=== PATIENT | male | born 1975 | race Caucasian/White ===

== ENCOUNTER 2023-02-06 10:34 | Emergency (ER) | payer MEDICAID, SELFPAY ==
[2023-02-06 10:39] VITALS: BP 148/92; PULSE 87; RESP 18; TEMP 36.8; O2SAT 98; BMI 23.7
[2023-02-06 10:40] VITALS: PULSE 75; RESP 12; O2SAT 99
[2023-02-06 10:45] VITALS: BP 148/92; PULSE 86; PULSE 93; RESP 15; RESP 16; O2SAT 98
[2023-02-06 10:50] VITALS: BP 138/85; PULSE 78; RESP 12; O2SAT 99
--- NOTE | 2023-02-06 10:55 | ED_ITS ---
HPI - Chest Pain General Chief Complaint: Chest Pain Stated Complaint: CHEST PAIN Time Seen by Provider: 02/06/23 10:37 Source: patient Mode of arrival: walk-in Limitations: no limitations History of Present Illness HPI narrative: 47-year-old male presents to the emergency department for chest pain. It started about 9:00 this morning. No injury. He points to the area just medial to the left axilla. It doesn't seem to radiate and it's been continuous. He states he's been under a lot stress recently. His fianc? broke up with him two days ago and he was going to go visit his son's grave today. No trauma or cough or back pain. he stopped taking his anxiety medication. Related Data Allergies Allergy/AdvReac Type Severity Reaction Status Date / Time No Known Drug Allergies Allergy Verified 02/06/23 10:39 Review of Systems ROS Narrative A ten point review of systems is negative except as noted above. Psychiatric Reports: anxiety PFSH PFSH Social History Smoking status: Heavy tobacco smoker Exam Narrative Exam Narrative: Nurses note and vital signs reviewed and patient is not hypoxic. General: The patient appears well and in no apparent distress. Patient is resting comfortably on cart. Skin: Warm, dry, no pallor noted. There is no rash noted. Head: Normocephalic, atraumatic Eye: Normal conjunctiva, no drainage Ears, Nose, Mouth, and Throat: oral mucosa is moist. Nares patent. Cardiovascular: Regular Rate and Rhythm Respiratory: Patient is in no distress, no accessory muscle use, lungs are clear to auscultation, no wheezing, rales or rhonchi Back: non-tender GI: soft and nontender Musculoskeletal: The patient has no evidence of calf tenderness, no pitting edema, symmetrical pulses noted bilaterally Neurological: A&O x4, normal speech Psychiatric: Cooperativeon the anxious Constitutional Vital Signs, click to edit/add: Last Vital Signs Temp 98.3 F 02/06/23 10:39 Pulse 74 02/06/23 11:00 Resp 16 02/06/23 11:00 BP 135/93 H 02/06/23 11:00 Pulse Ox 97 02/06/23 11:00 O2 Del Method Room Air 02/06/23 10:39 Course Vital Signs Vital signs: Vital Signs Temperature 98.3 F 02/06/23 10:39 Pulse Rate 87 02/06/23 10:39 Respiratory Rate 18 02/06/23 10:39 Blood Pressure 148/92 H 02/06/23 10:39 Pulse Oximetry 98 02/06/23 10:39 Oxygen Delivery Method Room Air 02/06/23 10:39 Temperature 98.3 F 02/06/23 10:39 Pulse Rate 74 02/06/23 11:00 Respiratory Rate 16 02/06/23 11:00 Blood Pressure 135/93 H 02/06/23 11:00 Pulse Oximetry 97 02/06/23 11:00 Oxygen Delivery Method Room Air 02/06/23 10:39 MDM - Chest Pain MDM Narrative Medical decision making narrative: during the course of his workup he decided he didn't want to stay any longer. She is able to make medical decisions for himself and is allowed to sign out against medical advice. His workup was incomplete. He is being referred to PCP. Differential Diagnosis Differential diagnosis: Likely pneumothorax, unstable angina pectoris, atypical chest pain, st elevation myocardial infarction, costochondritis and chest pain Lab Data Attestation: I reviewed the patient's lab results. (labs reviewed to the point where he left against medical advice. not all labs were resulted.) Labs: Lab Results 02/06/23 Range/Units 10:50 WBC 6.0 (4.0-11.0) 10^3/uL RBC 5.17 (4.70-6.10) 10^6/uL Hgb 15.6 (14.0-18.0) g/dL Hct 45.4 (42.0-54.0) % MCV 87.8 (80.0-94.0) fL MCH 30.2 (25.9-34.0) pg MCHC 34.4 (29.9-35.2) g/dL RDW 13.4 (11.0-15.0) % Plt Count 363 (150-450) 10^3/uL MPV 9.9 (9.5-13.5) fL Neut % (Auto) 52.1 (43.0-75.0) % Lymph % (Auto) 33.2 (20.5-60.0) % [place] % (Auto) 9.6 (1.7-12.0) % Eos % (Auto) 2.9 (0.9-7.0) % Baso % (Auto) 2.0 (0.2-2.0) % Neut # (Auto) 3.1 (1.4-6.5) 10^3/uL Lymph # (Auto) 2.0 (1.2-3.8) 10^3/uL [place] # (Auto) 0.6 (0.3-0.8) 10^3/uL Eos # (Auto) 0.2 (0.0-0.7) 10^3/uL Baso # (Auto) 0.1 (0.0-0.1) 10^3/uL Abs Immat Gran (auto) 0.01 (0.00-0.03) 10^3/uL Imm/Tot Granulo (auto) 0.2 (0.0-0.5) % Sodium 142 (136-145) mmol/L Potassium 3.7 (3.5-5.1) mmol/L Chloride 105 (98-107) mmol/L Carbon Dioxide 25.9 (21.0-32.0) mmol/L Anion Gap 14.8 BUN 25.0 H (7.0-18.0) mg/dL Creatinine 1.01 (0.70-1.30) mg/dL Est GFR ( Amer) >60 (>=60) Est GFR (Non-Af Amer) >60 (>=60) BUN/Creatinine Ratio 24.8 Glucose 105 (74-106) mg/dL Calcium 9.1 (8.5-10.1) mg/dL ECG Data Attestation: I personally reviewed and interpreted this ECG as follows: (EKG on my interpretation shows sinus rhythm with rate of seventy-seven) Heart Score History: Slightly/Non-Suspicious ECG: Normal Age: <45 years Risk Factors: No Risk Factors Troponin: <Normal Limit (not resulted) Total Heart Score Recommendations & Risks:: 0 Discharge Plan Discharge Chief Complaint: Chest Pain Clinical Impression: Chest pain Patient Disposition: Left Against Medical Advice Time of Disposition Decision: 11:38 Condition: Good Mode of Transportation: Private Vehicle Instructions: Chest Pain (ED) Stand Alone Forms: Portal Instructions Referrals: Physician,Non-Staff, MD [Primary Care Provider] - 1 week
--- NOTE | 2023-02-06 10:55 | ECG_ITS ---
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
--- NOTE | 2023-02-06 10:55 | XR_ITS ---
The [address] [address] Patient Name: SYLVIA OBANDO MRN: [id number] date: 1975 Sex: M Assigned Patient Location: ER Current Patient Location: ED.MAIN Accession/Order Number: [id number] Exam Date: 02/06/2023 10:55 Report Date: 02/06/2023 11:24 At the request of: NIKIA CAMPOS Procedure: XR chest 1V EXAMINATION: XR chest 1V HISTORY: SOB , chest pain, tightness COMPARISON: No relevant comparison available. FINDINGS: LUNGS: No significant pulmonary parenchymal abnormalities. VASCULATURE: No increased pulmonary vasculature. PLEURA: No pneumothorax, effusion, or pleural thickening. CARDIAC: No cardiomegaly or cardiac silhouette abnormality. MEDIASTINUM: No visible mass or adenopathy. BONES: No fracture or visible bone lesion. OTHER: Negative. XR/XR chest 1V IMPRESSION: 1. No acute cardiopulmonary process. Electronically authenticated by: LOLITA CHRISTENSEN Date: 02/06/2023 11:24
[2023-02-06 11:00] VITALS: BP 135/93; PULSE 74; RESP 16; O2SAT 97
[2023-02-06 11:20] LABS: Basophils Absolute Auto 0.1 10^3/uL (0.0-0.1); Eosinophils Absolute Auto 0.2 10^3/uL (0.0-0.7); Eosinophils Percent Auto 2.9 % (0.9-7.0); Hematocrit 45.4 % (42.0-54.0); Hemoglobin 15.6 g/dL (14.0-18.0); Immature Granulocytes Abs Auto 0.01 10^3/uL (0.00-0.03); Immature Granulocytes Pct Auto 0.2 % (0.0-0.5); Lymphocytes Percent Auto 33.2 % (20.5-60.0); Mean Corpuscular HGB Conc 34.4 g/dL (29.9-35.2); Mean Corpuscular Hemoglobin 30.2 pg (25.9-34.0); Mean Corpuscular Volume 87.8 fL (80.0-94.0); Mean Platelet Volume 9.9 fL (9.5-13.5); Monocytes Absolute Auto 0.6 10^3/uL (0.3-0.8); Monocytes Percent Auto 9.6 % (1.7-12.0); Neutrophils Absolute Auto 3.1 10^3/uL (1.4-6.5); Neutrophils Percent Auto 52.1 % (43.0-75.0); Platelet Count 363 10^3/uL (150-450); Red Blood Count 5.17 10^6/uL (4.70-6.10); Red Cell Distribution Width 13.4 % (11.0-15.0)
[2023-02-06 11:34] LABS: Anion Gap 14.8; BUN Creatinine Ratio 24.8; Calcium 9.1 mg/dL (8.5-10.1); Carbon Dioxide 25.9 mmol/L (21.0-32.0); Chloride 105 mmol/L (98-107); Estimated GFR (African America >60 (>=60); Estimated GFR (Non-African Ame >60 (>=60); Glucose 105 mg/dL (74-106); Potassium 3.7 mmol/L (3.5-5.1); Sodium 142 mmol/L (136-145)
[2023-02-06 11:42] LABS: Troponin I High Sensitivity 4.6 pg/mL (4.0-76.1)
== END 2023-02-06 11:39 | disposition left against medical advice (07) ==
PROVIDERS: Emergency Provider Emergency Medicine
DX: R07.9 Chest pain, unspecified (principal); F17.210 Nicotine dependence, cigarettes, uncomplicated
CPT/HCPCS: 36415; 71045; 80048; 84484; 85025; 93005; 99285

== ENCOUNTER 2023-03-28 07:52 | Emergency (ER) | payer MEDICAID, SELFPAY ==
[2023-03-28 07:56] VITALS: BP 122/80; PULSE 84; RESP 28; TEMP 36.8; BMI 21.7
--- NOTE | 2023-03-28 08:01 | XR_ITS ---
The [place] [id number] Patient Name: SYLVIA OBANDO MRN: [id number] date: 1975 Sex: M Assigned Patient Location: ER Current Patient Location: ED.MAIN Accession/Order Number: [id number] Exam Date: 03/28/2023 08:08 Report Date: 03/28/2023 08:29 At the request of: NAGA JEWELL Procedure: XR wrist RT min 3V XR wrist RT min 3V, 03/28/2023 8:08 AM EDT, [place]001 INDICATION: injury COMPARISON: None TECHNIQUE: 3 images are submitted. FINDINGS: The bones appear well mineralized. No acute fracture or subluxation is identified. The joint spaces are maintained. No destructive osseous process is identified. The visualized soft tissues appear unremarkable. XR/XR wrist RT min 3V IMPRESSION: No acute traumatic abnormality or malalignment. Electronically authenticated by: ARTURO WALKER Date: 03/28/2023 08:29
[2023-03-28 08:02] VITALS: PULSE 81
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
== END 2023-03-28 08:49 | disposition home or self-care (01) ==
PROVIDERS: Emergency Provider Emergency Medicine Emergency Medical Services
DX: S60.211A Contusion of right wrist, initial encounter (principal); V47.5XXA Car driver injured in collision with fixed or stationary object in traffic accident, initial encounter; F17.210 Nicotine dependence, cigarettes, uncomplicated
CPT/HCPCS: 73110; 99283

== ENCOUNTER 2023-05-30 15:52 | Emergency (ER) | payer MEDICAID, SELFPAY ==
[2023-05-30 15:55] VITALS: BP 158/106; PULSE 102; RESP 20; TEMP 36.3; O2SAT 98; BMI 22.4
--- NOTE | 2023-05-30 15:58 | ED.PSYCH1 ---
HPI - Psych General Chief Complaint: Seizure Stated Complaint: SUICIDAL COMMENTS Time Seen by Provider: 05/30/23 15:57 Source: Reports law enforcement Mode of arrival: law enforcement Limitations: Reports no limitations History of Present Illness HPI Narrative: 47-year-old male presents by law enforcement for suicidal ideation as he was arrested for a felony indictment for drugs. HPI is coming from the resident medical officer as I tried to talk to the patient and he kept his eyes closed and would not talk, therefore HPI limited. While the resident medical officer was telling me the story about the patient flopping around, the patient started arguing with the resident medical officer over previous arrests. Related Data Allergies Allergy/AdvReac Type Severity Reaction Status Date / Time No Known Drug Allergies Allergy Verified 03/28/23 07:56 Review of Systems ROS Status of ROS 10 or more systems reviewed and unremarkable except as noted in history and below PFSH PFSH Social History Smoking status: Current every day smoker Exam Narrative Exam Narrative: General: alert, no distress, talking in full an complete sentences skin: warm, dry, intact head: normocephalic, atraumatic eyes: EOMI nose: nares patent throat: no stridor neck: supple, trachea midline respiratory: non-labored extremities: FROM x 4 neuro: A&Ox3 psych: appropriate mood and affect, cooperative Constitutional Vital Signs, click to edit/add: Last Vital Signs Temp 97.3 F L 05/30/23 15:55 Pulse 102 H 05/30/23 15:55 Resp 20 05/30/23 15:55 BP 158/106 H 05/30/23 15:55 Pulse Ox 98 05/30/23 15:55 O2 Del Method Room Air 05/30/23 15:55 Course Vital Signs Vital signs: Vital Signs Temperature 97.3 F L 05/30/23 15:55 Pulse Rate 102 H 05/30/23 15:55 Respiratory Rate 20 05/30/23 15:55 Blood Pressure 158/106 H 05/30/23 15:55 Pulse Oximetry 98 05/30/23 15:55 Oxygen Delivery Method Room Air 05/30/23 15:55 Temperature 97.3 F L 05/30/23 15:55 Pulse Rate 102 H 05/30/23 15:55 Respiratory Rate 20 05/30/23 15:55 Blood Pressure 158/106 H 05/30/23 15:55 Pulse Oximetry 98 05/30/23 15:55 Oxygen Delivery Method Room Air 05/30/23 15:55 MDM - Psych MDM Narrative Medical decision making narrative: Please officer states that patient is going back to [facility] nursing home and they have suicide precautions there and he will be discharged back to while enforcement. No further work-up required in the ER. afebrile, not tachypneic, not tachycardic, tolerating p.o., not hypoxic, non toxic appearing and ambulating at baseline and hemodynamically stable to be d/c. answered all questions. pt in agreement with tx. educated when to return to ER. Discharge Plan Discharge Chief Complaint: Seizure Clinical Impression: Suicidal ideation Patient Disposition: Home, Self-Care Time of Disposition Decision: 15:59 Condition: Good Mode of Transportation: Private Vehicle Instructions: Suicide Prevention (ED) Stand Alone Forms: Portal Instructions Referrals: Physician,Non-Staff, MD [Primary Care Provider] - 1 week
== END 2023-05-30 16:05 | disposition home or self-care (01) ==
LOC: ER 16:21
PROVIDERS: Emergency Provider Emergency Medicine
DX: R45.851 Suicidal ideations (principal); F17.210 Nicotine dependence, cigarettes, uncomplicated
CPT/HCPCS: 99283

== ENCOUNTER 2023-06-27 22:48 | Observation (INO) | payer MEDICAID, SELFPAY ==
[2023-06-27] VITALS (9 sets, daily range): BP systolic 132; BP diastolic 63–83; PULSE 80–99; RESP 16–30; TEMP 36.3; O2SAT 100; BMI 23.1
--- NOTE | 2023-06-27 23:00 | ECG_ITS ---
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
--- NOTE | 2023-06-27 23:00 | XR_ITS ---
[address] [address] Patient Name: SYLVIA OBANDO MRN: [id number] date: 1975 Sex: M Assigned Patient Location: ER Current Patient Location: ER Accession/Order Number: [id number] Exam Date: 06/27/2023 23:22 Report Date: 06/27/2023 23:38 At the request of: JOI REYES Procedure: XR chest 1V EXAM: XR chest 1V HISTORY: chest pain COMPARISON: 02/06/2023 FINDINGS/IMPRESSION: 1. Lungs are clear 2. No pneumothorax. No pleural effusion. 3. Heart size and mediastinal contours are normal 4. No acute osseous abnormality Electronically authenticated by: DONTE YAN Date: 06/27/2023 23:38
--- NOTE | 2023-06-27 23:01 | ED_ITS ---
HPI - Chest Pain General Chief Complaint: Chest Pain Stated Complaint: chest pain Time Seen by Provider: 06/27/23 23:00 History of Present Illness HPI narrative: presents complaining of substernal chest pain that started about 30 minutes ago and woke him up from sleep. Denies past history of similar chest pain. daily smoker. has nausea. no fever. States family history of heart disease MD complaint: Reports chest pain Risk Factors Coronary artery disease risk factors: smoking history Related Data Allergies Allergy/AdvReac Type Severity Reaction Status Date / Time No Known Drug Allergies Allergy Verified 03/28/23 07:56 Review of Systems ROS Status of ROS 10 or more systems reviewed and unremarkable except as noted in history and below PFSH PFSH Social History Smoking status: Current every day smoker Exam Constitutional Vital Signs, click to edit/add: Last Vital Signs Temp 97.3 F L 06/27/23 22:51 Pulse 92 H 06/28/23 00:56 Resp 18 06/28/23 00:56 BP 132/63 06/27/23 22:51 Pulse Ox 98 06/28/23 00:56 O2 Del Method Room Air 06/27/23 22:56 Common normals: oriented x3, healthy appearing and alert General appearance: in distress Chest Other: faint exp wheeze Cardio Common normals: regular rate, regular rhythm, S1 normal heart sound and S2 normal heart sound GI Other: mild diffuse nonspecific tenderness Extremity Common normals: normal to inspection and full ROM Neuro Common normals: oriented x3, CN's II-XII intact bilaterally, moves all extremities and no focal motor deficits Psych Appearance: grossly normal Course Vital Signs Vital signs: Vital Signs Temperature 97.3 F L 06/27/23 22:51 Pulse Rate 93 H 06/27/23 22:51 Respiratory Rate 20 06/27/23 22:51 Blood Pressure 132/63 06/27/23 22:51 Pulse Oximetry 100 06/27/23 22:51 Oxygen Delivery Method Room Air 06/27/23 22:51 Temperature 97.3 F L 06/27/23 22:51 Pulse Rate 92 H 06/28/23 00:56 Respiratory Rate 18 06/28/23 00:56 Blood Pressure 132/63 06/27/23 22:51 Pulse Oximetry 98 06/28/23 00:56 Oxygen Delivery Method Room Air 06/27/23 22:56 MDM - Chest Pain MDM Narrative Medical decision making narrative: patient is a smoker . Presents with acute onset of chest pain that woke him up from sleep. states pain 05/09. Denies past history of similar pain. Treated in the department with nitro and morphine. also treated for wheezing with solumedrol and duoneb and wheezing resolved. troponin neg x 2. cxray clear. EKG with ST depression. NSR. patient asymptomatic now. Discussed with hospitalist and will plan obs admssion Lab Data Labs: Lab Results 06/27/23 06/28/23 Range/Units 23:18 01:54 WBC 7.2 (4.0-11.0) 10^3/uL RBC 4.43 L (4.70-6.10) 10^6/uL Hgb 13.5 L (14.0-18.0) g/dL Hct 40.3 L (42.0-54.0) % MCV 91.0 (80.0-94.0) fL MCH 30.5 (25.9-34.0) pg MCHC 33.5 (29.9-35.2) g/dL RDW 13.6 (11.0-15.0) % Plt Count 359 (150-450) 10^3/uL MPV 9.8 (9.5-13.5) fL Neut % (Auto) 59.3 (43.0-75.0) % Lymph % (Auto) 29.3 (20.5-60.0) % [place] % (Auto) 7.7 (1.7-12.0) % Eos % (Auto) 1.4 (0.9-7.0) % Baso % (Auto) 2.0 (0.2-2.0) % Neut # (Auto) 4.3 (1.4-6.5) 10^3/uL Lymph # (Auto) 2.1 (1.2-3.8) 10^3/uL [place] # (Auto) 0.6 (0.3-0.8) 10^3/uL Eos # (Auto) 0.1 (0.0-0.7) 10^3/uL Baso # (Auto) 0.1 (0.0-0.1) 10^3/uL Abs Immat Gran (auto) 0.02 (0.00-0.03) 10^3/uL Imm/Tot Granulo (auto) 0.3 (0.0-0.5) % Sodium 144 (136-145) mmol/L Potassium 3.6 (3.5-5.1) mmol/L Chloride 106 (98-107) mmol/L Carbon Dioxide 30.2 (21.0-32.0) mmol/L Anion Gap 11.4 BUN 19.0 H (7.0-18.0) mg/dL Creatinine 1.04 (0.70-1.30) mg/dL Est GFR ( Amer) >60 (>=60) Est GFR (Non-Af Amer) >60 (>=60) BUN/Creatinine Ratio 18.3 Glucose 92 (74-106) mg/dL Calcium 9.0 (8.5-10.1) mg/dL Troponin I High Sens 4.4 5.3 (4.0-76.1) pg/mL Discharge Plan Discharge Chief Complaint: Chest Pain Clinical Impression: Chest pain Patient Disposition: Admitted as Observation Referrals: Physician,Non-Staff, MD [Primary Care Provider] - 1 week
[2023-06-27] MEDS: NITROGLYCERIN 0.4 MG BOTTLE PO (23:40)
[2023-06-27] MEDS: MORPHINE SULFATE 4 MG/ML VIAL IM (23:41)
[2023-06-27] MEDS: ONDANSETRON PF 4 MG/2 ML VIAL IV (23:41)
[2023-06-27 23:45] LABS: Basophils Absolute Auto 0.1 10^3/uL (0.0-0.1); Eosinophils Absolute Auto 0.1 10^3/uL (0.0-0.7); Eosinophils Percent Auto 1.4 % (0.9-7.0); Hematocrit 40.3 % (42.0-54.0); Hemoglobin 13.5 g/dL (14.0-18.0); Immature Granulocytes Abs Auto 0.02 10^3/uL (0.00-0.03); Immature Granulocytes Pct Auto 0.3 % (0.0-0.5); Lymphocytes Absolute Auto 2.1 10^3/uL (1.2-3.8); Lymphocytes Percent Auto 29.3 % (20.5-60.0); Mean Corpuscular HGB Conc 33.5 g/dL (29.9-35.2); Mean Corpuscular Hemoglobin 30.5 pg (25.9-34.0); Mean Platelet Volume 9.8 fL (9.5-13.5); Monocytes Absolute Auto 0.6 10^3/uL (0.3-0.8); Monocytes Percent Auto 7.7 % (1.7-12.0); Neutrophils Absolute Auto 4.3 10^3/uL (1.4-6.5); Neutrophils Percent Auto 59.3 % (43.0-75.0); Platelet Count 359 10^3/uL (150-450); Red Blood Count 4.43 10^6/uL (4.70-6.10); Red Cell Distribution Width 13.6 % (11.0-15.0); White Blood Count 7.2 10^3/uL (4.0-11.0)
[2023-06-28] VITALS (27 sets, daily range): BP systolic 96–122; BP diastolic 60–80; PULSE 71–93; RESP 13–26; TEMP 36.7; O2SAT 96–99; BMI 22.7
[2023-06-28 00:05] LABS: Anion Gap 11.4; BUN Creatinine Ratio 18.3; Carbon Dioxide 30.2 mmol/L (21.0-32.0); Chloride 106 mmol/L (98-107); Estimated GFR (African America >60 (>=60); Estimated GFR (Non-African Ame >60 (>=60); Glucose 92 mg/dL (74-106); Potassium 3.6 mmol/L (3.5-5.1); Sodium 144 mmol/L (136-145); Troponin I High Sensitivity 4.4 pg/mL (4.0-76.1)
[2023-06-28] MEDS: METHYLPREDNISOLONE SOD SUCC PF 125 MG/2 ML VIAL IVP (00:49)
[2023-06-28] MEDS: IPRATROPIUM/ALBUTEROL SULFATE 3 ML AMPUL.NEB IH (00:56)
[2023-06-28 02:31] LABS: Troponin I High Sensitivity 5.3 pg/mL (4.0-76.1)
--- NOTE | 2023-06-28 05:53 | CA_ITS ---
Patient Name: SYLVIA OBANDO MR#: [id number] : 1975 Exam Date: 06/28/2023 Ordering Doctor: NHI HORVATH ECHOCARDIOGRAM REPORT PROCEDURE: CA ECHO DOPPLER COMPLETE INDICATIONS: chest pain, smoker COMPARISON: None. DESCRIPTION: COMPLETE ECHOCARDIOGRAM Real-time transthoracic echocardiography with 2D, M-mode, spectral and color flow Doppler performed. QUALITY: Technical quality was good. 72 , 167# , BSA 1.97 m2 LEFT VENTRICLE: Normal chamber size. Normal left ventricular wall thickness. Normal systolic function. LV EF: Normal left ventricular ejection fraction, (65%). DIASTOLIC: Normal diastolic function. ATRIAL SEPTUM: Visually appears intact. LEFT ATRIUM: Normal chamber size. RIGHT ATRIUM: Normal chamber size. RIGHT VENTRICLE: Normal chamber size. Normal right ventricular systolic function. TRICUSPID VALVE: Normal mobility and thickness. No stenosis with trivial regurgitation. MITRAL VALVE: Normal mobility and thickness. No evidence of mitral valve stenosis. There is no mitral annular calcification. No mitral regurgitation. AORTIC VALVE: Normal trileaflet appearance. No visible sclerosis. Normal leaflet mobility. No evidence of aortic valve stenosis. No aortic regurgitation. AORTIC ROOT: Normal diameter and appearance. PULMONIC VALVE: Normal thickness and mobility. No stenosis. No regurgitation. PERICARDIUM: No evidence of pericardial effusion. IVC: IVC is normal in size with no collapse. PLEURA: CONCLUSION: 1. Normal ventricular function. LVEF is 65%. 2. No significant valvular dysfunction. 3. No pericardial effusion. Adult Echocardiography Procedure Report Left Ventricle LVEDD (3.7 - 5.6 cm): 4.80 cm LVESD (2.2 - 4.0 cm): 3.49 cm LVIVS thickness (0.6 - 1.2 cm): 7.83 mm LVPW thickness (0.5 - 1.0 cm): 9.81 mm LVOT Max Gradient: 4 mm[Hg] Peak Velocity (LVOT): 101.00 cm/s Mean Velocity (LVOT): 64.20 cm/s LVOT Diameter 2.30 cm Left Ventricular Ejection Fraction: 65% Left Atrium LA Volume Index (2D A2C): 49159 mm3 Left Atrium Systolic Dimension: 3.10 cm Mitral Valve MV E to A Ratio: 1.30 Mitral Valve A-Wave Peak Velocity: 52.30 cm/s Mitral Valve E-Wave Peak Velocity: 67.60 cm/s Cardiovascular Orifice Area: 3.38 cm2 Right Ventricle Aorta AO Root Diam: 3.30 cm Aortic Valve AoV Area ([place]): 2.93 cm2 AoV Area (VTI): 2.71 cm2 Peak Velocity(Antegrade Flow): 143.00 cm/s Peak Gradient(Antegrade Flow): 8 mm[Hg] Mean Velocity(Antegrade Flow): 97.60 cm/s Mean Gradient(Antegrade Flow): 4 mm[Hg] Velocity Time Integral: 26.80 cm Tricuspid Valve Peak Velocity: 50.30 cm/s Pulmonic Valve Peak Velocity: 125.00 cm/s, 89.60 cm/s Peak Gradient: 5 mm[Hg] Right Atrium Dictated by: Otis Sierra M.D. on 06/28/2023 at 19:45 Approved by: Otis Sierra M.D. on 06/28/2023 at 19:49
--- NOTE | 2023-06-28 05:58 | W.PM.TELEPN ---
Progress Note: Subjective Subjective Interval history: The patient is a 48-year-old male who was in his usual state of health until earlier this evening when he woke up from sleep with sudden onset of substernal chest pain which was 10 out of 10 intensity, radiating down his left arm. He states that he is under a lot of stress recently but would not go into details. He denies any sick contacts. He did also have some shortness of breath and wheezing and a pleuritic component to his chest pain. He presented to the ED and was given Solu-Medrol, nebulizers and troponins were initially negative. He has not been vaccinated for flu or COVID. He is being admitted for further work-up of chest pain. Exam Constitutional Vital Signs, click to edit/add: Last Vital Signs Temp 98.1 F 06/28/23 04:46 Pulse 78 06/28/23 04:46 Resp 16 06/28/23 04:46 BP 122/80 06/28/23 04:46 Pulse Ox 96 06/28/23 04:46 O2 Del Method Room Air 06/28/23 04:46 Progress Note: Objective Labs Labs: Short CBC 06/27/23 Range/Units 23:18 WBC 7.2 (4.0-11.0) 10^3/uL Hgb 13.5 L (14.0-18.0) g/dL Hct 40.3 L (42.0-54.0) % Plt Count 359 (150-450) 10^3/uL BMP 06/27/23 23:18 Sodium 144 Potassium 3.6 Chloride 106 Carbon Dioxide 30.2 BUN 19.0 H Creatinine 1.04 Glucose 92 Calcium 9.0 Progress Note: A&P Assessment and Plan (1) Chest pain: Plan The patient is a 48-year-old male with above medical problems, presenting with atypical chest pain Atypical chest pain -Provide supportive care -Nitroglycerin and morphine as needed -Start aspirin -Check lipid panel -Check D-dimer, if positive check CT angiogram -Echocardiogram to look for wall motion abnormalities -Check urine drug screen Nicotine dependence -Provide nicotine patch DVT Prophylaxis -Lovenox, SCDs Medication review -Medication reconciliation form completed Goals of care -Full code Communications -Discussed with the emergency room physician -Discussed with the bedside nurse -Patient updated of plan of care, all questions answered to their satisfaction Disposition -Home when medically stable Telemedicine clause -As the provider of this telehealth evaluation, requested by the patient's evaluating physician, I attest that I introduced myself to the patient, provided my credentials and determined that telemedicine via a real-time, two-way interactive audio and video platform is an appropriate and effective means of providing this service. -I reviewed the patient's chart and had a discussion with the member of the patient's treatment team. -The patient and I mutually agreed with continuation of this evaluation via telemedicine. The patient consented for the telemedicine evaluation. -This virtual encounter was taken place from [place], [place]. The encounter was approximately 35 minutes. The nurse was present during the entire time of the encounter and was able to remove the stethoscope and appropriate directions. The patient was evaluated at [facility] Telemedicine Attestation Telemedicine Attestation I conducted this encounter from [] via secure live, [id number] video conference with the patient, located at [facility] with []. Prior to the interview, the risks and benefits of telemedicine were discussed with the patient and verbal consent was obtained.
[2023-06-28] MEDS: KETOROLAC TROMETHAMINE 30 MG/ML VIAL 15 MG IVP (06:32)
[2023-06-28] MEDS: ASPIRIN 81 MG TABLET.DR PO (06:32)
[2023-06-28] MEDS: ENOXAPARIN SODIUM 40 MG/0.4 ML SYRINGE SUBQ (06:32)
[2023-06-28] MEDS: PANTOPRAZOLE SODIUM 40 MG VIAL IV (06:33)
[2023-06-28] MEDS: NICOTINE 14 MG PATCH.TD24 TD (06:33)
[2023-06-28 06:53] LABS: Chol HDL Ratio 4.6; Cholesterol 210 mg/dL (<=200); HDL Cholesterol 46 mg/dL (40-60); Triglycerides 45 mg/dL (<=150)
[2023-06-28 06:57] LABS: Troponin I High Sensitivity 6.1 pg/mL (4.0-76.1)
[2023-06-28 09:00] LABS: Amphetamine Screen Urine POSITIVE (NEGATIVE); Barbiturates Screen Urine NEGATIVE (NEGATIVE); Benzodiazepines Screen Urine NEGATIVE (NEGATIVE); Cannabinoid Screen Urine POSITIVE (NEGATIVE); Cocaine Screen Urine NEGATIVE (NEGATIVE); Methadone Screen Urine NEGATIVE (NEGATIVE); Methamphetamines Screen Urine POSITIVE (NEGATIVE); Opiate Screen Urine POSITIVE (NEGATIVE); Oxycodone Screen Urine NEGATIVE (NEGATIVE); Phencyclidine Screen Urine NEGATIVE (NEGATIVE); Tricyclic Antidepressant Urine NEGATIVE (NEGATIVE)
[2023-06-28 09:01] LABS: Buprenorphine Screen Urine NEGATIVE (NEGATIVE)
--- NOTE | 2023-06-28 10:49 | CM.NOTE ---
Rounding with Dr. Foster. discussed smoking with patient and encouraged stopping. Patient discussed setting up follow up appointment with Dr. López after discharge. States he does not currently have a PCP. Nursing to set this follow up appointment for patient.
--- NOTE | 2023-06-28 11:46 | CM.NOTE ---
Discussed with pt regarding illegal drug use, pt does state he dabbles in a lot of different drugs but denies any addiction issues. Pt denies any need for rehab or at this time. Pt does have information for [facility] as outpatient for some depression issues that he is planning on scheduling at discharge. Pt lives in daughter's basement at this time, denies need for food or housing. Pt verbalizes he wishes he could afford to live alone but can't at this time.
--- NOTE | 2023-06-28 12:02 | P.HP_ITS ---
H&P: HPI History of Present Illness Chief complaint: Chest pain Narrative: 48 y/o male to ER with chest pain. No PCP and no past medical history. Currently smokes about 1 PPD which is down from 2 PPD and smoked for about 30 years. Developed pain in upper chest that woke him up from sleep. Trosper like heaviness and squeezing across top of chest. Reports mild SOB and cough for few days. To ER and CE negative. Noted wheezing on exam and given steroids and albuterol. Admitted for observation. Feels well this am. No further pain since ER. Never diagnosed with COPD but states had inhaler few years ago which helped. Review of Systems ROS Constitutional Denies: fever, chills or fatigue Cardiovascular Reports: chest pain; Denies: palpitations, edema or lightheade dness Respiratory Reports: shortness of breath and cough; Denies: wheezing Gastrointestinal Denies: abdominal pain, nausea, vomiting or diarrhea Genitourinary Denies: painful urination PFSH PFSH Medical History (Updated 06/28/23 @ 11:19 by Randal Foster MD) Contusion of right wrist ?S60.211A - Contusion of right wrist, initial encounter (ICD-10) Enlarged prostate ?N40.0 - Benign prostatic hyperplasia without lower urinary tract symptoms (ICD-10) Seizures, 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 (ICD-10) Suicidal ideation ?R45.851 - Suicidal ideations (ICD-10) Surgical History (Updated 06/28/23 @ 05:12 by Ginny Trinh) History of appendectomy ?Z90.49 - Acquired absence of other specified parts of digestive tract (ICD- 10) Family History (Updated 06/28/23 @ 05:13 by Ginny Trinh) Mother Family history of CHF (congestive heart failure) Family history of cancer Family history of myocardial infarction Father Family history of COPD (chronic obstructive pulmonary disease) Family history of hypertension Family history of myocardial infarction Social History (Updated 06/28/23 @ 05:15 by Ginny Trinh) Within the past year, how often did you have a drink containing alcohol: never Within the past year, how often did you have six or more drinks on one occasion: never Score interpretation: A score less than 4 is consistent with normal alcohol consumption. 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 Known occupational exposures/hazards: No Highest level of school completed/degree received: high school graduate Do you want help with school or training: No Are you now , , , , never or living with a partner: In a typical week, how many times do you talk on the telephone with family, friends, or neighbors: 3 or more times per week How often do you get together with friends or relatives: never How often do you attend advent or catholic services: never Do you belong to any clubs or organizations such as advent groups unions, [employer] or athletic groups, or school groups: no Total score: 1 Score interpretation: A score of less than or equal to 1 indicates the most socially isolated. Little interest or pleasure in doing things: nearly every day Feeling down, depressed, or hopeless: nearly every day Feel stressed/tense/nervous/anxious/difficulty sleeping: very much Life stressors: loss of job and financial matters Due to disability, difficulty making decisions: No Do you think of yourself as: straight/heterosexual Gender Identity: male Meds Home Medications and Allergies Home Medications Medication Instructions Recorded Confirmed Type albuterol sulfate 90 mcg/actuation 2 inh inhalation Q4H PRN shortness 06/28/23 Rx aerosol inhaler of breath or wheezing #8.5 grams prednisone 10 mg tablets in a dose 10 mg PO DAILY #39 ea 06/28/23 Rx pack Allergies Allergy/AdvReac Type Severity Reaction Status Date / Time No Known Drug Allergies Allergy Verified 03/28/23 07:56 Exam Constitutional Vital Signs, click to edit/add: Last Vital Signs Temp 98.1 F 06/28/23 04:46 Pulse 76 06/28/23 10:00 Resp 16 06/28/23 08:00 BP 122/80 06/28/23 04:46 Pulse Ox 96 06/28/23 04:46 O2 Del Method Room Air 06/28/23 04:46 Documenting provider has reviewed patient's vital signs: yes Common normals: no apparent distress, oriented x3 and alert HENMT Common normals: normocephalic Eye Common normals: PERRL and EOMs intact bilaterally Respiratory Auscultation: wheezes and diminished lung sounds Cardio Common normals: regular rate, regular rhythm, no gallops, no murmurs and no rub GI Common normals: Normal to inspection, nondistended, normoactive bowel sounds present and non-tender Extremity Common normals: no pedal edema Results Labs Labs: Short CBC 06/27/23 Range/Units 23:18 WBC 7.2 (4.0-11.0) 10^3/uL Hgb 13.5 L (14.0-18.0) g/dL Hct 40.3 L (42.0-54.0) % Plt Count 359 (150-450) 10^3/uL BMP 06/27/23 23:18 Sodium 144 Potassium 3.6 Chloride 106 Carbon Dioxide 30.2 BUN 19.0 H Creatinine 1.04 Glucose 92 Calcium 9.0 Assessment and Plan Assessment and Plan (1) Chest pain: (2) COPD with exacerbation: Plan Patient not having ACS. CE negative and EKG normal. Presented with chest pain and likely related to COPD. Wheezing on exam and improved with albuterol. Discharge home. Will take prednisone tapered over 12 days and albuterol every 4 hours x 48 hours then PRN. Need to establish with PCP and will need PFTs and possible stress test as outpatient.
== END 2023-06-28 13:01 | disposition home or self-care (01) ==
LOC: ER 06-28 03:05 → MS 06-28 04:43
PROVIDERS: Admitting Provider Internal Medicine; Emergency Provider Internal Medicine; Visit Provider Family Medicine
DX: J44.1 Chronic obstructive pulmonary disease with (acute) exacerbation (principal); R07.89 Other chest pain; N40.0 Benign prostatic hyperplasia without lower urinary tract symptoms; Z90.49 Acquired absence of other specified parts of digestive tract; Z82.49 Family history of ischemic heart disease and other diseases of the circulatory system; F17.200 Nicotine dependence, unspecified, uncomplicated
CPT/HCPCS: 36415; 71045; 80048; 80061; 80307; 84484; 85025; 85378; 93005; 93306; 94640; 96372; 96374; 96375; 99285; G0378; J2930; Q3014

== ENCOUNTER 2023-09-07 21:19 | Emergency (ER) | payer MEDICAID, SELFPAY ==
[2023-09-07] VITALS (18 sets, daily range): BP systolic 127–146; BP diastolic 64–85; PULSE 72–104; RESP 12–23; TEMP 36.5; O2SAT 92–96
--- OUTSIDE RECORDS SUMMARY | 2023-09-07 21:27 | XMS_ITS | CCD ---
Author Name Unknown Address [address] [place] [address] [address] [place] [address] Organization [facility] Care Team Providers Care Coil Tester Name Role Phone REQUEST, NONE LISTED Primary Care Unavaila ble JOI REYES Admitting Unavailable JOI REYES Attending Unavailable JIO REYES Consulting Unavailable REQUEST, NONE LISTED Primary Care Unavaila ble AMY, JOI Admitting Unavailable JOI REYES Attending Unavailable MICHAEL ., KENNEDY ROBERT Consulting Unavailabl e JOI REYES Consulting Unavailable NONI MOISE Consulting Unavailable REQUEST, NONE LISTED Primary Care Unavaila ble JOHANNA ., DR NESBITT Admitting Unavailable HAY ., DR NESBITT Attending Unavailable HAY ., DR NESBITT Consulting Unavailable REQUEST, NONE LISTED Primary Care Unavaila ble JANY ., CHIKA Admitting Unavailable JANY ., CHIKA Attending Unavailable JANY ., CHIKA Consulting Unavailable GUERRERO NELSON Consulting Unavailable HAY ., DR NESBITT Admitting Unavailable HAY ., DR NESBITT Attending Unavailable REQUEST, NONE LISTED Primary Care Unavaila ble HAY ., DR NESBITT Consulting Unavailable JANY ., CHIKA Admitting Unavailable JANY ., CHIKA Attending Unavailable JANY ., CHIKA Consulting Unavailable SAM FIGUEROA Attending Unavailable NO PCP, NO PCP Primary Care Unavailable SAM FIGUEROA Attending Unavailable SAM FIGUEROA Referring Unavailable NO PCP, NO PCP Primary Care Unavailable NO PCP, NO PCP Primary Care Unavailable RON FOFANA E. Attending Unavailable RONEY CHRISTENSEN Admitting Unavailable INPATIENT, TELENEUROLOGY Consulting Unavail able RINTODD RON E. Attending Unavailable RINTO, RON E. Referring Unavailable NO PCP, NO PCP Primary Care Unavailable RINTO, RON E. Attending Unavailable RINTO, RON E. Referring Unavailable NO PCP, NO PCP Primary Care Unavailable RINTO RON E. Attending Unavailable RINTO, RON E. Referring Unavailable NO PCP, NO PCP Primary Care Unavailable RINTO RON E. Attending Unavailable RON FOFANA Referring Unavailable NO PCP, NO PCP Primary Care Unavailable Barak Lawson Attending Unavailab le Barak Lawson Admitting Unavailab le Allergies Allergy Classification Reported Allergen(s) Allergy Type Date of Onset Reaction(s) Facility (1 source) Iodine (And Iodine Containting Drugs) Drug allergy (disorder) 02-17-2022 [facility] Repository (1 source) Shellfish Drug allergy (disorder) 02-17-2022 [facility] Repository (1 source) Povidone-Iodine; Translations: [POVIDONE-IODINE ] Drug Allergy 08-07-2023 [facility] Repository Problems Active Problems Problem Classification Problem Date Documented Date Episodic/Chronic Attention-deficit, conduct, and disruptive behavior disorders (1 source) Other conduct disorders; Translations: [OTHER CONDUCT DISORDERS] Onset: 08-29-2022 Chronic Cardiac dysrhythmias (1 source) Cardiac arrhythmia, unspecified; Translations: [Cardiac arrhythmia, unspecified] Onset: 08-13-2023 Chronic Cardiac dysrhythmias (1 source) Bradycardia, unspecified; Translations: [Bradycardia, unspecified] Onset: 08-13-2023 Episodic E Codes: Natural/environment (2 sources) Exposure to other specified factors, initial encounter; Translations: [Other and unspecified overexertion or strenuous movements or postures, initial encounter] Onset: 07-19-2022 Episodic Epilepsy; convulsions (1 source) Unspecified convulsions; Translations: [Unspecified convulsions] Onset: 08-13-2023 Episodic Other aftercare (1 source) Other halfway (current) drug therapy; Translations: [OTH CARPENTER ROUGH CURRENT DRUG THERAPY] Onset: 08-29-2022 Episodic Other nervous system disorders (1 source) Unspecified mononeuropathy of right upper limb; Translations: [UNS MONONEUROPATHY RIGHT UPPER LIMB] Onset: 05-27-2022 Chronic Other non-traumatic joint disorders (3 sources) Pain in left wrist; Translations: [PAIN IN LEFT WRIST] Onset: 11-16-2022 Episodic Residual codes; unclassified (1 source) Altered mental status, unspecified; Translations: [Altered mental status, unspecified] Onset: 08-07-2023 Episodic Sprains and strains (4 sources) Unspecified sprain of left wrist, initial encounter; Translations: [Strain of unspecified muscle, fascia and tendon at shoulder and upper arm level, right arm, initial encounter] Onset: 02-21-2022 Episodic Substance-related disorders (1 source) Nicotine dependence, cigarettes, uncomplicated; Translations: [NICOTINE DEPEND CIGARETTES UNCOMP] Onset: 11-18-2022 Chronic Suicide and intentional self-inflicted injury (3 sources) Suicidal ideations; Translations: [SUICIDAL IDEATIONS] Onset: 08-25-2022 Episodic Syncope (1 source) Syncope and collapse; Translations: [Syncope and collapse] Onset: 08-07-2023 Episodic Unclassified (1 source) Seizure - Prior Hx Of Onset: 08-07-2023 Unclassified (1 source) ILL Onset: 08-07-2023 Past or Other Problems Problem Classification Problem Date Documented Da te Episodic/Chronic Other non-traumatic joint disorders (3 sources) Pain in right shoulder; Translations: [PAIN IN RIGHT SHOULDER] Onset: 07-15-2022 Episodic Residual codes; unclassified (1 source) Procedure and treatment not carried out because of patient's decision for other reasons; Translations: [PROC AND TX NOT CARRIED OUT PT OTH RSN] Onset: 05-27-2022 Episodic Spondylosis; intervertebral disc disorders; other back problems (7 sources) Muscle spasm of back; Translations: [Other dorsalgia] Onset: 02-17-2022 Episodic Results Test Name Value Interpretation Reference Range Facility CBC AND AUTO DIFFon 08-14-19 ABSOLUTE BASOPHIL 0.1 X10E9/L Normal 0.0-0.2 [facility] Comment on above: Performed By: #### C JALIL, BMP #### [facility] ([id number]) [address] [place] [address] 77248 ABSOLUTE NEUTROPHIL 4.6 X10E9/L Normal 1.5-6.6 [facility] Comment on above: Performed By: #### C BCA, BMP #### [facility] ([id number]) [address] [place] [address] 84972 Basophils/100 WBC (Bld) 1.2 % Normal [facility] Comment on above: Performed By: #### C JALIL, BMP #### [facility] ([id number]) [address] [place] [address] 19411 Eosinophils (Bld) [#/Vol] 0.1 10*3/uL Normal 0.0-0.4 [facility] Comment on above: Performed By: #### C JALIL, BMP #### [facility] ([id number]) [address] [place] [address] 79473 Eosinophils/100 WBC (Bld) 1.7 % Normal [facility] Comment on above: Performed By: #### C JALIL, BMP #### [facility] ([id number]) [address] [place] [address] 09363 Erythrocyte distribution width (RBC) [Ratio] 14.4 % Normal 11.5-15.0 [facility] Comment on above: Performed By: #### C JALIL, BMP #### [facility] ([id number]) [address] [place] [address] 25103 Hematocrit (Bld) [Volume fraction] 46.6 % Normal 39-49 [facility] Comment on above: Performed By: #### C JALIL, BMP #### [facility] ([id number]) [address] [place] [address] 08163 Hemoglobin (Bld) [Mass/Vol] 15.9 g/dL Normal 13.0-17.0 [facility] Comment on above: Performed By: #### C JALIL, BMP #### [facility] ([id number]) [address] [place] [address] 61865 Lymphocytes (Bld) [#/Vol] 2.9 10*3/uL Normal 1.0-3.5 [facility] Comment on above: Performed By: #### C JALIL, BMP #### [facility] ([id number]) [address] [place] [address] Lymphocytes/100 WBC (Bld) 33.3 % Normal [facility] Comment on above: Performed By: #### C JALIL, BMP #### [facility] ([id number]) [address] [place] [address] 50139 MCH (RBC) [Entitic mass] 30.7 pg Normal 27-34 [facility] Comment on above: Performed By: #### C JALIL, BMP #### [facility] ([id number]) [address] [place] [address] 26607 MCHC (RBC) [Mass/Vol] 34.0 g/dL Normal 32-36 [facility] Comment on above: Performed By: #### C JALIL, BMP #### [facility] ([id number]) [address] [place] [address] 54099 MCV (RBC) [Entitic vol] 90 fL Normal 80-100 [facility] Comment on above: Performed By: #### C JALIL, BMP #### [facility] ([id number]) [address] [place] [address] 21660 Monocytes (Bld) [#/Vol] 0.8 10*3/uL Normal 0-0.9 [facility] Comment on above: Performed By: #### C JALIL, BMP #### [facility] ([id number]) [address] [place] [address] 10307 Monocytes/100 WBC (Bld) 9.7 % Normal [facility] Comment on above: Performed By: #### C JALIL, BMP #### [facility] ([id number]) [address] [place] [address] 00535 Neutrophils/100 WBC (Bld) 54.1 % Normal [facility] Comment on above: Performed By: #### C JALIL, BMP #### [facility] ([id number]) [address] [place] [address] Platelet mean volume (Bld) [Entitic vol] 8.5 fL Normal 7-12 [facility] Comment on above: Performed By: #### C JALIL, BMP #### [facility] ([id number]) [address] [place] [address] 57353 Platelets (Bld) [#/Vol] 360 10*3/uL Normal 150-450 [facility] Comment on above: Performed By: #### C JALIL, BMP #### [facility] ([id number]) [address] [place] [address] 88934 RBC COUNT 5.17 X10E12/L Normal 4.10-5.70 [facility] Comment on above: Performed By: #### C JALIL, BMP #### [facility] ([id number]) [address] [place] [address] 96276 WBC (Bld) [#/Vol] 8.6 10*3/uL Normal 4.0-11.0 [facility] Comment on above: Performed By: #### C JALIL, BMP #### [facility] ([id number]) [address] [place] [address] 60698 COMPREHENSIVE METABOLIC PANE Sheldon 08-14-2023 Albumin [Mass/Vol] 4.0 g/dL Normal 3.2-5.3 [facility] Comment on above: Performed By: #### C JALIL, BMP #### [facility] ([id number]) [address] [place] [address] 51202 ALP [Catalytic activity/Vol] 78 U/L Normal 39-130 [facility] Comment on above: Performed By: #### C JALIL, BMP #### [facility] ([id number]) [address] [place] [address] 16427 ALT [Catalytic activity/Vol] 14 U/L Normal 0-40 [facility] Comment on above: Performed By: #### C BCA, BMP #### [facility] ([id number]) [address] [place] [address] 30333 Anion gap [Moles/Vol] 10 mmol/L Normal 5-15 [facility] Comment on above: Performed By: #### C BCA, BMP #### [facility] ([id number]) [address] [place] [address] 16714 AST [Catalytic activity/Vol] 19 U/L Normal 0-41 [facility] Comment on above: Performed By: #### C BCA, BMP #### [facility] ([id number]) [address] [place] [address] 00339 Bilirubin [Mass/Vol] 0.6 mg/dL Normal 0.3-1.2 [facility] Comment on above: Performed By: #### C BCA, BMP #### [facility] ([id number]) [address] [place] [address] 85693 Calcium [Mass/Vol] 9.0 mg/dL Normal 8.5-10.5 [facility] Comment on above: Performed By: #### C BCA, BMP #### [facility] ([id number]) [address] [place] [address] 58698 Chloride [Moles/Vol] 102 mmol/L Normal 98-109 [facility] Comment on above: Performed By: #### C BCA, BMP #### [facility] ([id number]) [address] [place] [address] 57510 CO2 [Moles/Vol] 24 mmol/L Normal 22-32 [facility] Comment on above: Performed By: #### C BCA, BMP #### [facility] ([id number]) [address] [place] [address] [place] [address] Creatinine [Mass/Vol] 1.12 mg/dL Normal 0.70-1.20 [facility] Comment on above: Result Comment: METH OD TRACEABLE TO IDMS STANDARD Performed By: #### C BCA, BMP #### [facility] ([id number]) [address] [place] [address] 87729 GFR/1.73 sq M.predicted among non-blacks MDRD (S/P/Bld) [Vol rate/Area] 81 mL/min/{1.73_m2} Normal >59 [facility] Comment on above: Result Comment: Reported eGFR is based on the CKD-EPI 2020 equation that does not use a race coefficient. Performed By: #### C BCA, BMP #### [facility] ([id number]) [address] [place] [address] 76209 Glucose [Mass/Vol] 101 mg/dL High 65-99 [facility] Comment on above: Performed By: #### C BCA, BMP #### [facility] ([id number]) [address] [place] [address] 56472 Potassium [Moles/Vol] 4.0 mmol/L Normal 3.5-5.0 [facility] Comment on above: Performed By: #### C BCA, BMP #### [facility] ([id number]) [address] [place] [address] 52284 Protein [Mass/Vol] 7.7 g/dL Normal 6.0-8.0 [facility] Comment on above: Performed By: #### C BCA, BMP #### [facility] ([id number]) [address] [place] [address] 06252 Sodium [Moles/Vol] 136 mmol/L Normal 134-146 [facility] Comment on above: Performed By: #### C BCA, BMP #### [facility] ([id number]) [address] [place] [address] 99445 Urea nitrogen [Mass/Vol] 18 mg/dL Normal 5-23 [facility] Comment on above: Performed By: #### C BCA, BMP #### [facility] ([id number]) [address] [facility] [place] [address] XR CHEST 1 VWon 08-14-2023 XR CHEST 1 VW XR CHEST 1 VW Clinical history: Seizure disorder Views: 1 Comparison: 08/13/2023 Findings/Impression: 1. No acute infiltrate. No volume loss nor consolidation. There is no pleural effusion, pneumothorax, nor volume loss. Heart and mediastinal structures are unremarkable. Pulmonary vasculature stable. 2. No significant change Finalized by Ayush Naranjo MD on 08/14/2023 6:22 AM Normal [facility] levETIRAcetam [Mass/Vol]on 0 08-14-2023 LEVETIRACETAM See Below Normal [facility] Comment on above: Result Comment: NOTE TEST RESULT FLAG UNIT REF.RANGE ----- Levetiracetam 20.9 ug/mL 12.0-46.0 This test is not suitable for patients receiving treatment with the drug brivaracetam (Briviact). The drug causes an interference that may lead to falsely elevated levetiracetam results. Reference ranges and high/low indicator flags are provided as general guidelines only. The treating physician must determine appropriate target levels/dosing based on the specific clinical situation. This test was developed and its performance characteristics determined by [facility] [place] ([facility] It has not been cleared or approved by the FDA. -[facility] is regulated under CLIA as qualified to perform high-complexity testing. This test is used for clinical purposes. It should not be regarded as investigational or for research. Test Performed By: [facility] sones [address] [place] [address] Tank Crewmember: Lamont Craft III, M.D. CLIA #[id number] Performed By: #### C BCA, BMP #### [facility] ([id number]) [address] [place] [address] 89658 CBC AND AUTO DIFFon 08-13-19 24 ABSOLUTE BASOPHIL 0.1 X10E9/L Normal 0.0-0.2 [facility] Comment on above: Performed By: #### 1 39-9, , CBCA, 05762-4, CMP #### [facility] ([id number]) [address] [place] [address] 78601 ABSOLUTE NEUTROPHIL 4.5 X10E9/L Normal 1.5-6.6 [facility] Comment on above: Performed By: #### 1 39-9, , CBCA, 45800-8, CMP #### [facility] ([id number]) [address] [place] [address] 25956 Basophils/100 WBC (Bld) 1.4 % Normal [facility] Comment on above: Performed By: #### 1 399, , CBCA, 09253-1, CMP #### [facility] ([id number]) [address] [place] [address] 11224 Eosinophils (Bld) [#/Vol] 0.1 10*3/uL Normal 0.0-0.4 [facility] Comment on above: Performed By: #### 1 39-9, , CBCA, 39811-6, CMP #### [facility] ([id number]) [address] [place] [address] 17542 Eosinophils/100 WBC (Bld) 1.1 % Normal [facility] Comment on above: Performed By: #### 1 39-9, , CBCA, 52288-3, CMP #### [facility] ([id number]) [address] [place] [address] 36565 Erythrocyte distribution width (RBC) [Ratio] 14.4 % Normal 11.5-15.0 [facility] Comment on above: Performed By: #### 1 9, , CBCA, 00361-2, CMP #### [facility] ([id number]) [address] [place] [address] 39121 Hematocrit (Bld) [Volume fraction] 49.5 % High 39-49 [facility] Comment on above: Performed By: #### 1 9, , CBCA, 62784-5, CMP #### [facility] ([id number]) [address] [place] [address] 09316 Hemoglobin (Bld) [Mass/Vol] 17.3 g/dL High 13.0-17.0 [facility] Comment on above: Performed By: #### 1 9, , CBCA, 85209-3, CMP #### [facility] ([id number]) [address] [place] [address] 53354 Lymphocytes (Bld) [#/Vol] 2.0 10*3/uL Normal 1.0-3.5 [facility] Comment on above: Performed By: #### 1 9, , CBCA, 65322-2, CMP #### [facility] ([id number]) [address] [place] [address] 14884 Lymphocytes/100 WBC (Bld) 27.2 % Normal [facility] Comment on above: Performed By: #### 1 399, , CBCA, 76625-4, CMP #### [facility] ([id number]) [address] [place] [address] 89769 MCH (RBC) [Entitic mass] 31.3 pg Normal 27-34 [facility] Comment on above: Performed By: #### 1 838-9, , CBCA, 72310-0, CMP #### [facility] ([id number]) [address] [place] [address] 47584 MCHC (RBC) [Mass/Vol] 35.0 g/dL Normal 32-36 [facility] Comment on above: Performed By: #### 1 39-9, , CBCA, 94218-7, CMP #### [facility] ([id number]) [address] [place] [address] 10053 MCV (RBC) [Entitic vol] 89 fL Normal 80-100 [facility] Comment on above: Performed By: #### 1 838-9, , CBCA, 26675-0, CMP #### [facility] ([id number]) [address] [place] [address] 87463 Monocytes (Bld) [#/Vol] 0.5 10*3/uL Normal 0-0.9 [facility] Comment on above: Performed By: #### 1 39-9, , CBCA, 05613-7, CMP #### [facility] ([id number]) [address] [place] [address] 31481 Monocytes/100 WBC (Bld) 7.5 % Normal [facility] Comment on above: Performed By: #### 1 39-9, , CBCA, 50939-9, CMP #### [facility] ([id number]) [address] [place] [address] 45236 Neutrophils/100 WBC (Bld) 62.8 % Normal [facility] Comment on above: Performed By: #### 1 39-9, , CBCA, 78615-3, CMP #### [facility] ([id number]) [address] [place] [address] 09752 Platelet mean volume (Bld) [Entitic vol] 8.5 fL Normal 7-12 [facility] Comment on above: Performed By: #### 1 39-9, , CBCA, 14317-5, CMP #### [facility] ([id number]) [address] [place] [address] 04690 Platelets (Bld) [#/Vol] 409 10*3/uL Normal 150-450 [facility] Comment on above: Performed By: #### 1 39-9, , CBCA, 41469-9, CMP #### [facility] ([id number]) [address] [place] [address] 61477 RBC COUNT 5.54 X10E12/L Normal 4.10-5.70 [facility] Comment on above: Performed By: #### 1 39-9, , CBCA, 88057-3, CMP #### [facility] ([id number]) [address] [place] [address] 67515 WBC (Bld) [#/Vol] 7.2 10*3/uL Normal 4.0-11.0 [facility] Comment on above: Performed By: #### 1 39-9, , CBCA, 92136-8, CMP #### [facility] ([id number]) [address] [place] [address] 80195 COMPREHENSIVE METABOLIC PANE Sheldon 08-13-2023 Albumin [Mass/Vol] 5.4 g/dL High 3.2-5.3 [facility] Comment on above: Performed By: #### 1 39-9, 70571-1, CBCA, 44893-0, CMP #### [facility] ([id number]) [address] [place] [address] 74636 ALP [Catalytic activity/Vol] 92 U/L Normal 39-130 [facility] Comment on above: Performed By: #### 1 39-9, 15543-9, CBCA, 78356-5, CMP #### [facility] ([id number]) [address] [place] [address] 03353 ALT [Catalytic activity/Vol] 18 U/L Normal 0-40 [facility] Comment on above: Performed By: #### 1 39-9, 78408-5, CBCA, 92080-2, CMP #### [facility] ([id number]) [address] [place] [address] 14069 Anion gap [Moles/Vol] 10 mmol/L Normal 5-15 [facility] Comment on above: Performed By: #### 1 39-9, , CBCA, 30651-0, CMP #### [facility] ([id number]) [address] [place] [address] 59083 AST [Catalytic activity/Vol] 21 U/L Normal 0-41 [facility] Comment on above: Performed By: #### 1 9, , CBCA, 18093-6, CMP #### [facility] ([id number]) [address] [place] [address] 50844 Bilirubin [Mass/Vol] 0.5 mg/dL Normal 0.3-1.2 [facility] Comment on above: Performed By: #### 1 39-9, , CBCA, 59657-5, CMP #### [facility] ([id number]) [address] [place] [address] 98930 Calcium [Mass/Vol] 9.9 mg/dL Normal 8.5-10.5 [facility] Comment on above: Performed By: #### 1 39-9, , CBCA, 68516-7, CMP #### [facility] ([id number]) [address] [place] [address] 80846 Chloride [Moles/Vol] 101 mmol/L Normal 98-109 [facility] Comment on above: Performed By: #### 1 39-9, , CBCA, 06204-7, CMP #### [facility] ([id number]) [address] [place] [address] 62386 CO2 [Moles/Vol] 25 mmol/L Normal 22-32 [facility] Comment on above: Performed By: #### 1 39-9, , CBCA, 71217-8, CMP #### [facility] ([id number]) [address] [place] [address] 03927 Creatinine [Mass/Vol] 0.98 mg/dL Normal 0.70-1.20 [facility] Comment on above: Result Comment: METH OD TRACEABLE TO IDMS STANDARD Performed By: #### 1 39-9, , CBCA, 12866-9, CMP #### [facility] ([id number]) [address] [place] [address] 45809 eGFR (CKD-EPI) NON-RACE DEPENDENT >90 Normal >59 [facility] Comment on above: Result Comment: Reported eGFR is based on the CKD-EPI 2020 equation that does not use a race coefficient. Performed By: #### 1 39-9, , CBCA, 19422-6, CMP #### [facility] ([id number]) [address] [place] [address] 65217 Glucose [Mass/Vol] 90 mg/dL Normal 65-99 [facility] Comment on above: Performed By: #### 1 39-9, , CBCA, 33607-7, CMP #### [facility] ([id number]) [address] [place] [address] 31398 Potassium [Moles/Vol] 4.2 mmol/L Normal 3.5-5.0 [facility] Comment on above: Performed By: #### 1 39-9, , CBCA, 16240-1, CMP #### [facility] ([id number]) [address] [place] [address] 34158 Protein [Mass/Vol] 9.9 g/dL High 6.0-8.0 [facility] Comment on above: Performed By: #### 1 0839-9, 80353-3, CBCA, 75729-8, CMP #### [facility] ([id number]) [address] [place] [address] 89023 Sodium [Moles/Vol] 136 mmol/L Normal 134-146 [facility] Comment on above: Performed By: #### 1 0839-9, 39351-7, CBCA, 90379-4, CMP #### [facility] ([id number]) [address] [place] [address] 31128 Urea nitrogen [Mass/Vol] 19 mg/dL Normal 5-23 [facility] Comment on above: Performed By: #### 1 0839-9, 45590-8, CBCA, 64211-4, CMP #### [facility] ([id number]) [address] [place] [address] BRAIN WO CONTon CT BRAIN WO CONT CT BRAIN WO CONT CT BRAIN WO CONT HISTORY: Transient alteration of awareness COMPARISON: 08/07/2023 TECHNIQUE: CT brain obtained without intravenous contrast. Automated exposure control was utilized. All CT scans at this facility use dose modulation, iterative reconstruction, and/or weight based dosing when appropriate to reduce radiation dose to as low as reasonably achievable. FINDINGS: No midline shift, mass effect, acute intracranial hemorrhage, or evidence of acute large vessel ischemia/infarct. The cerebral volume, ventricles, cisterns, and sulci are normal for patient age. Hypoattenuation in the periventricular white matter, likely related to chronic microvascular ischemic disease. Brainstem and cerebellum are unremarkable. Visualized intraorbital contents and the infratemporal soft tissues show no acute abnormality. The visualized paranasal sinuses and mastoid air cells are well-aerated. Osseous structures in skull base and calvarium show no acute abnormality. Small soft tissue hematoma over the high left parietal scalp. IMPRESSION: * No acute intracranial abnormality by CT. Small left high parietal scalp hematoma. Approved by Resident: Baltazar Navarrete DO on 08/13/2023 3:44 AM IHonorio MD have personally reviewed the image(s) and agree with and/or edited the report Finalized by Honorio Sherman MD on 08/13/2023 3:51 AM Normal [facility] DRUG SCREEN, URINEon 024 AMPHETAMINE/METHAMP Negative Normal NEG [facility] Comment on above: Result Comment: AMPH /METH screening cut off = 1000 ng/mL Performed By: #### C BCA, BMP #### [facility] ([id number]) [address] [place] [address] BARBITURATES Negative Normal NEG [facility] Comment on above: Result Comment: Lou iturates screening cut off value = 200 ng/mL Performed By: #### C BCA, BMP #### [facility] ([id number]) [address] [place] [address] 39130 BENZODIAZEPINES Positive Abnormal NEG [facility] Comment on above: Result Comment: Conf irmation available upon request. Benzodiazepines screening cut off value = 200 ng/mL Performed By: #### C BCA, BMP #### [facility] ([id number]) [address] [place], [place] [address] CANNABINOIDS Positive Abnormal NEG [facility] Comment on above: Result Comment: Conf irmation available upon request. Cannabinoids/THC screening cut off value = 50 ng/mL Performed By: #### C BCA, BMP #### [facility] ([id number]) [address] [place] [address] 34296 COCAINE METABOLITE Negative Normal NEG [facility] Comment on above: Result Comment: Coca ine screening cut off value = 300 ng/mL Performed By: #### C BCA, BMP #### [facility] ([id number]) [address] [place] [address] 52979 ECSTASY Negative Normal NEG [facility] Comment on above: Result Comment: Ecst asy screening cut off value = 500 ng/mL This report is intended for use in clinical monitoring or management of patients. Performed By: #### C JALIL, BMP #### [facility] ([id number]) [address] [place] [address] 80204 METHADONE Negative Normal NEG [facility] Comment on above: Result Comment: Meth adone screening cut off value = 300 ng/mL. Performed By: #### C JALIL, BMP #### [facility] ([id number]) [address] [place] [address] 95877 OPIATES Negative [facility] Comment on above: Result Comment: Opia andrés screening cut off value = 300 ng/mL NOTE: This test is used for the detection of codeine, hydrocodone (>1000 ng/mL), morphine and hydromorphone (>900 ng/mL) in urine. Performed By: #### C JALIL, BMP #### [facility] ([id number]) [address] [place] [address] 43512 OXYCODONE Negative Normal [facility] Comment on above: Result Comment: Oxyc odone screening cut off value = 300 ng/mL NOTE: This test is used for the detection of oxycodone and oxymorphone in urine. Performed By: #### C JALIL, BMP #### [facility] ([id number]) [address] [place] [address] 68667 PHENCYCLIDINE Negative Normal [facility] Comment on above: Result Comment: Phen cyclidine screening cut off value = 25 ng/mL Performed By: #### C JALIL, BMP #### [facility] ([id number]) [address] [place] [address] 71985 Glucose Glucometer (BldC) [M ass/Vol]on 01-14-2024 Glucose [Mass/Vol] 85 mg/dL Normal 65-99 [facility] Lactate (P juve) [Moles/Vol]o n 08-13-2023 LACTATE W/REFLEX 1.4 mmol/L Normal 0.4-2.0 [facility] Comment on above: Result Comment: Result did not trigger repeat Lactate, re-order if needed. Performed By: #### 1 0839-9, 75584-9, CBCA, 54099-9, CMP #### [facility] ([id number]) [address] [place] [address] 04749 MAGNESIUMon 08-13-2023 Magnesium [Mass/Vol] 2.0 mg/dL Normal 1.8-2.6 [facility] Comment on above: Performed By: #### 1 0839-9, 26857-8, CBCA, 41082-3, CMP #### [facility] ([id number]) [address] [place] [address] 61732 PLATELET COUNT AND MPVon Platelet mean volume (Bld) [Entitic vol] 8.2 fL Normal 7-12 [facility] Comment on above: Performed By: #### C JALIL, BMP #### [facility] ([id number]) [address] [place] [address] 48585 Platelets (Bld) [#/Vol] 322 10*3/uL Normal 150-450 [facility] Comment on above: Performed By: #### C JALIL, BMP #### [facility] ([id number]) [address] [place] [address] 25338 Prolactin [Mass/Vol]on 08-13 PROLACTIN 11.4 ng/mL Normal 2.6-13.1 [facility] Comment on above: Performed By: #### C BCA, BMP #### [facility] ([id number]) [address] [place] [address] 61896 TROPONIN Ion 08-13-2023 Troponin I.cardiac [Mass/Vol] ng/mL Normal 0.00-0.04 [facility] Comment on above: Performed By: #### 1 0839-9, 42930-3, CBCA, 74935-8, CMP #### [facility] ([id number]) [address] [place] [address] 77832 URN MACROSCOPIC NURon 2023 BILIRUBIN JAS Negative Normal NEG [facility] Comment on above: Performed By: #### N UM #### [facility] ([id number]) [address] [place] [address] 76983 BLOOD/HGB JAS Negative Normal NEG [facility] Comment on above: Performed By: #### N UM #### [facility] ([id number]) [address] [place] [address] [place] [address] GLUCOSE JAS Negative Normal NEG [facility] Comment on above: Performed By: #### N UM #### [facility] ([id number]) [address] [place] [address] [place] [address] KETONES JAS Negative Normal NEG [facility] Comment on above: Performed By: #### N UM #### [facility] ([id number]) [address] [place] [address] [place] [address] LEUKOCYTE ESTERASE JAS Negative Normal NEG [facility] Comment on above: Performed By: #### N UM #### [facility] ([id number]) [address] [place] [address] [place] [address] NITRITE JAS Negative Normal NEG [facility] Comment on above: Performed By: #### N UM #### [facility] ([id number]) [address] [place] [address] [place] [address] PH JAS 7.5 Normal 5.0-8.5 [facility] Comment on above: Performed By: #### N UM #### [facility] ([id number]) [address] [place] [address] 88797 PROTEIN JAS Negative Normal NEG [facility] Comment on above: Performed By: #### N UM #### [facility] ([id number]) [address] [place] [address] 95301 SPECIFIC GRAVITY JAS 1.015 Normal 1.003-1.035 [facility] Comment on above: Performed By: #### N UM #### [facility] ([id number]) [address] [place] [address] 19473 UROBILINOGEN JAS 0.2 eu/dL Normal <1.1 [facility] Comment on above: Performed By: #### N UM #### [facility] ([id number]) [address] [place] [address] 51098 XR CHEST 1 VWon 08-13-2023 XR CHEST 1 VW XR CHEST 1 VW XR CHEST 1 VW HISTORY: Seizure. Evaluate possibility of aspiration pneumonia COMPARISON: None FINDINGS: Semiupright AP view of the chest The trachea is midline. Cardiomediastinal contour within normal limits. No focal consolidation. No pleural effusion or pneumothorax. Bony skeleton appears intact IMPRESSION: * No acute pulmonary process. Finalized by Honorio Sherman MD on 08/13/2023 1:55 AM Normal [facility] BASIC METABOLIC PANLon 08-07 Anion gap [Moles/Vol] 7 mmol/L Normal 5-15 [facility] Comment on above: Performed By: #### C BCA, BMP #### [facility] ([id number]) [address] [place] [address] 13804 Calcium [Mass/Vol] 9.3 mg/dL Normal 8.5-10.5 [facility] Comment on above: Performed By: #### C BCA, BMP #### [facility] ([id number]) [address] [place] [address] 54232 Chloride [Moles/Vol] 102 mmol/L Normal 98-109 [facility] Comment on above: Performed By: #### C JALIL, BMP #### [facility] ([id number]) [address] [place] [address] 19597 CO2 [Moles/Vol] 25 mmol/L Normal 22-32 [facility] Comment on above: Performed By: #### C JALIL, BMP #### [facility] ([id number]) [address] [place] [address] 04361 Creatinine [Mass/Vol] 1.04 mg/dL Normal 0.70-1.20 [facility] Comment on above: Result Comment: METH OD TRACEABLE TO IDMS STANDARD Performed By: #### C JALIL, BMP #### [facility] ([id number]) [address] [place] [address] 38231 GFR/1.73 sq M.predicted among non-blacks MDRD (S/P/Bld) [Vol rate/Area] 89 mL/min/{1.73_m2} Normal >59 [facility] Comment on above: Result Comment: Reported eGFR is based on the CKD-EPI 2020 equation that does not use a race coefficient. Performed By: #### C JALIL, BMP #### [facility] ([id number]) [address] [place] [address] 83308 Glucose [Mass/Vol] 98 mg/dL Normal 65-99 [facility] Comment on above: Performed By: #### C JALIL, BMP #### [facility] ([id number]) [address] [place] [address] 40497 Potassium [Moles/Vol] 4.0 mmol/L Normal 3.5-5.0 [facility] Comment on above: Performed By: #### C JALIL, BMP #### [facility] ([id number]) [address] [place] [address] 99033 Sodium [Moles/Vol] 134 mmol/L Normal 134-146 [facility] Comment on above: Performed By: #### C JALIL, BMP #### [facility] ([id number]) [address] [place] [address] 47893 Urea nitrogen [Mass/Vol] 18 mg/dL Normal 5-23 [facility] Comment on above: Performed By: #### C JALIL, BMP #### [facility] ([id number]) [address] [place] [address] 07003 CBC AND AUTO DIFFon 08-07-19 24 ABSOLUTE BASOPHIL 0.1 X10E9/L Normal 0.0-0.2 [facility] Comment on above: Performed By: #### C JALIL, BMP #### [facility] ([id number]) [address] [place] [address] 93811 ABSOLUTE NEUTROPHIL 7.5 X10E9/L High 1.5-6.6 [facility] Comment on above: Performed By: #### C JALIL, BMP #### [facility] ([id number]) [address] [place] [address] 47268 Basophils/100 WBC (Bld) 1.1 % Normal [facility] Comment on above: Performed By: #### C JALIL, BMP #### [facility] ([id number]) [address] [place] [address] 13176 Eosinophils (Bld) [#/Vol] 0.1 10*3/uL Normal 0.0-0.4 [facility] Comment on above: Performed By: #### C JALIL, BMP #### [facility] ([id number]) [address] [place] [address] 54129 Eosinophils/100 WBC (Bld) 0.6 % Normal [facility] Comment on above: Performed By: #### C JALIL, BMP #### [facility] ([id number]) [address] [place] [address] 70149 Erythrocyte distribution width (RBC) [Ratio] 14.5 % Normal 11.5-15.0 [facility] Comment on above: Performed By: #### C JALIL, BMP #### [facility] ([id number]) [address] [place] [address] 19103 Hematocrit (Bld) [Volume fraction] 42.1 % Normal 39-49 [facility] Comment on above: Performed By: #### C JALIL, BMP #### [facility] ([id number]) [address] [place] [address] 31328 Hemoglobin (Bld) [Mass/Vol] 14.7 g/dL Normal 13.0-17.0 [facility] Comment on above: Performed By: #### C JALIL, BMP #### [facility] ([id number]) [address] [place] [address] 29581 Lymphocytes (Bld) [#/Vol] 1.3 10*3/uL Normal 1.0-3.5 [facility] Comment on above: Performed By: #### C JALIL, BMP #### [facility] ([id number]) [address] [place] [address] 90525 Lymphocytes/100 WBC (Bld) 13.6 % Normal [facility] Comment on above: Performed By: #### C JALIL, BMP #### [facility] ([id number]) [address] [place] [address] 63670 MCH (RBC) [Entitic mass] 31.1 pg Normal 27-34 [facility] Comment on above: Performed By: #### C BCA, BMP #### [facility] ([id number]) [address] [place] [address] 54343 MCHC (RBC) [Mass/Vol] 34.9 g/dL Normal 32-36 [facility] Comment on above: Performed By: #### C BCA, BMP #### [facility] ([id number]) [address] [place] [address] 47788 MCV (RBC) [Entitic vol] 89 fL Normal 80-100 [facility] Comment on above: Performed By: #### C JALIL, BMP #### [facility] ([id number]) [address] [place] [address] 53359 Monocytes (Bld) [#/Vol] 0.7 10*3/uL Normal 0-0.9 [facility] Comment on above: Performed By: #### C JALIL, BMP #### [facility] ([id number]) [address] [place] [address] 88729 Monocytes/100 WBC (Bld) 6.9 % Normal [facility] Comment on above: Performed By: #### C JALIL, BMP #### [facility] ([id number]) [address] [place] [address] 43938 Neutrophils/100 WBC (Bld) 77.8 % Normal [facility] Comment on above: Performed By: #### C JALIL, BMP #### [facility] ([id number]) [address] [place] [address] 09720 Platelet mean volume (Bld) [Entitic vol] 7.6 fL Normal 7-12 [facility] Comment on above: Performed By: #### C JALIL, BMP #### [facility] ([id number]) [address] [place] [address] 18009 Platelets (Bld) [#/Vol] 369 10*3/uL Normal 150-450 [facility] Comment on above: Performed By: #### C JALIL, BMP #### [facility] ([id number]) [address] [place] [address] 73761 RBC COUNT 4.73 X10E12/L Normal 4.10-5.70 [facility] Comment on above: Performed By: #### C JALIL, BMP #### [facility] ([id number]) [address] [facility], [place] [address] WBC (Bld) [#/Vol] 9.6 10*3/uL Normal 4.0-11.0 [facility] Comment on above: Performed By: #### C BCA, BMP #### [facility] ([id number]) [address] [place] [address] BRAIN WO CONTon 4 CT BRAIN WO CONT CT BRAIN WO CONT CLINICAL INFORMATION: Transient ischemic attack (TIA) TECHNIQUE: CT BRAIN WO CONT CT images of the brain were obtained. There is no acute intracranial hemorrhage or obvious cortical infarct. No mass is seen. Ventricles are nondilated. Sinuses are clear. IMPRESSION: No acute intracranial findings. All CT scans at this facility use dose modulation, iterative reconstruction, and/or weight based dosing when appropriate to reduce radiation dose to as low as reasonably achievable. Finalized by Bird Smith MD on 08/07/2023 6:27 PM Normal [facility] XR WRIST LT MIN 3 Von 2022 XR WRIST LT MIN 3 V EXAM: XR WRIST LT KS N 3 V HISTORY: Wrist pain COMPARISON: None. TECHNIQUE: 3 views FINDINGS: No osseous lesion, fracture, dislocation or subluxation. Joint spaces are normal. No visualized effusion. No visualized soft tissue edema. IMPRESSION: Normal x-rays Electronically authenticated by: NONI MOISE Date: 2022-11-16 20:44 Normal [facility] CBC AUTO DIFFon 05-26-2022 BASO # 0.1 103/ul Normal 0.0-0.1 [facility] Comment on above: Performed By: #### C BC #### [facility] [address] [place], [place] [address] Dr. Liudmila Edmondson Basophils/100 WBC (Bld) 1.2 % Normal 0.2-2.0 [facility] Comment on above: Performed By: #### C BC #### [facility] [address] [place], [place] [address] Dr. Liudmila Edmodnson EO # 0.4 103/ul Normal 0.0-0.7 [facility] Comment on above: Performed By: #### C BC #### [facility] [address] [place] [address] Dr. Liudmila Edmondson Eosinophils/100 WBC (Bld) 4.3 % Normal 0.9-7.0 [facility] Comment on above: Performed By: #### C BC #### [facility] [address] [place] [address] Dr. Liudmila Edmondson Erythrocyte distribution width (RBC) [Ratio] 13.4 % Normal 11.0-15.0 [facility] Comment on above: Performed By: #### C BC #### [facility] [address] [place] [address] Dr. Liudmila Edmondson Hematocrit (Bld) [Volume fraction] 42.4 % Normal 42.0-54.0 [facility] Comment on above: Performed By: #### C BC #### [facility] [address] [place] [address] Dr. Liudmila Edmondson Hemoglobin (Bld) [Mass/Vol] 15.1 g/dL Normal 14.0-18.0 [facility] Comment on above: Performed By: #### C BC #### [facility] [address] [place] [address] Dr. Liudmila Edmondson IG # 0.02 10e3/ul Normal 0.00-0.03 [facility] Comment on above: Performed By: #### C BC #### [facility] [address] [place] [address] Dr. Liudmila Edmondson IG % 0.2 % Normal 0.0-0.5 [facility] Comment on above: Performed By: #### C BC #### [facility] [address] [place] [address] Dr. Liudmila Edmondson LYMPH # 2.4 103/ul Normal 1.2-3.8 [facility] Comment on above: Performed By: #### C BC #### [facility] [address] [place] [address] Dr. Liudmlia Edmondson Lymphocytes/100 WBC (Bld) 24.6 % Normal 20.5-60.0 [facility] Comment on above: Performed By: #### C BC #### [facility] [address] [place] [address] Dr. Liudmila Edmondson MANUAL DIFF REQ NO Normal [facility] Comment on above: Performed By: #### C BC #### [facility] [address] [place] [address] Dr. Liudmila Edmondson MCH (RBC) [Entitic mass] 30.7 pg Normal 25.9-34.0 [facility] Comment on above: Performed By: #### C BC #### [facility] [address] [place] [address] Dr. Liudmila Edmondson MCHC (RBC) [Mass/Vol] 35.6 g/dL Critically high 29.9-35.2 [facility] Comment on above: Performed By: #### C BC #### [facility] [address] [place] [address] Dr. Liudmila Edmondson MCV (RBC) [Entitic vol] 86.2 fL Normal 80.0-94.0 [facility] Comment on above: Performed By: #### C BC #### [facility] [address] [place] [address] Dr. Liudmila Edmondson MONO # 0.7 103/ul Normal 0.3-0.8 [facility] Comment on above: Performed By: #### C BC #### [facility] [address] [place] [address] Dr. Liudmila Edmondson Monocytes/100 WBC (Bld) 7.1 % Normal 1.7-12.0 [facility] Comment on above: Performed By: #### C BC #### [facility] [address] [place] [address] Dr. Liudmila Edmondson NEUT # 6.0 103/ul Normal 1.4-6.5 [facility] Comment on above: Performed By: #### C BC #### [facility] [address] [place] [address] Dr. Liudmila Edmondson Neutrophils/100 WBC (Bld) 62.6 % Normal 43.0-75.0 [facility] Comment on above: Performed By: #### C BC #### [facility] [address] [place] [address] Dr. Liudmila Edmondson Platelet mean volume (Bld) [Entitic vol] 9.4 fL Critically low 9.5-13.5 [facility] Comment on above: Performed By: #### C BC #### [facility] [address] [place] [address] Dr. Liudmila Edmondson PLT 328 103/ul Normal 150-450 [facility] Comment on above: Performed By: #### C BC #### [facility] [address] [place] [address] Dr. Liudmila Edmondson RBC 4.92 106/ul Normal 4.70-6.10 [facility] Comment on above: Performed By: #### C BC #### [facility] [address] [place] [address] Dr. Liudmila Edmondson WBC 9.7 103/ul Normal 4.0-11.0 [facility] Comment on above: Performed By: #### C BC #### [facility] [address] [place] [address] Dr. Liudmila Edmondson CRPon 05-26-2022 CRP [Mass/Vol] mg/L Critically high <=1.0 [facility] Comment on above: Performed By: #### C RP, BMP #### [facility] [address] [place] [address] Dr. Liudmila Edmondson PROF CHEM 8 (BAS METB)on Anion gap [Moles/Vol] 9.0 mmol/L Normal [facility] Comment on above: Performed By: #### C RP, BMP #### [facility] [address] [place] [address] Dr. Liudmila Edmondson Calcium [Mass/Vol] 8.8 mg/dL Normal 8.5-10.1 [facility] Comment on above: Performed By: #### C RP, BMP #### [facility] [address] [place] [address] Dr. Liudmila Edmondson Chloride [Moles/Vol] 105 mmol/L Normal 98-107 [facility] Comment on above: Performed By: #### C RP, BMP #### [facility] [address] [address] [address] Liudmila Edmondson CO2 [Moles/Vol] 27.8 mmol/L Normal 21.0-32.0 [facility] Comment on above: Performed By: #### C RP, BMP #### [facility] [address] [address] [address] Liudmila Edmondson Creatinine [Mass/Vol] 0.99 mg/dL Normal 0.70-1.30 [facility] Comment on above: Performed By: #### C RP, BMP #### [facility] [address] [address] [address] Liudmila Edmondson EGFR-AF [place] >60 Normal >=60 [facility] Comment on above: Performed By: #### C RP, BMP #### [facility] [address] [place] [address] Dr. Liudmila Edmondson EGFR-NON AF [place] >60 Normal >=60 [facility] Comment on above: Performed By: #### C RP, BMP #### [facility] [address] [address] [address] Liudmila Edmondson Glucose [Mass/Vol] 135 mg/dL Critically high 74-106 [facility] Comment on above: Performed By: #### C RP, BMP #### [facility] [address] [address] [address] Liudmila Edmondson Potassium [Moles/Vol] 3.8 mmol/L Normal 3.5-5.1 [facility] Comment on above: Performed By: #### C RP, BMP #### [facility] [address] [address] [address] Liudmila Edmondson Sodium [Moles/Vol] 138 mmol/L Normal 136-145 [facility] Comment on above: Performed By: #### C RP, BMP #### [facility] [address] [address] [address] Liudmila Edmondson Urea nitrogen [Mass/Vol] 23.0 mg/dL Critically high 7.0-18.0 [facility] Comment on above: Performed By: #### C RP, BMP #### [facility] [address] [address] [address] Liudmila Edmondson Urea nitrogen/Creatinine [Mass ratio] 23.2 mg/mg Normal [facility] Comment on above: Performed By: #### C RP, BMP #### [facility] [address] [address] [address] Liudmila Edmondosn SED RATE [facility] 2021 SED RATE 43 mm/hr Critically high <=15 [facility] Comment on above: Performed By: #### S EDR #### [facility] [address] [address] [address] Liudmila Edmondson Encounters Encounter Date Encounter Type Care Provider Facility Start: 08-14-2023 End: 08-15-2023 ambulatory [facility] Start: 08-13-2023 End: 08-15-2023 Emergency department patient visit [facility] Start: 08-13-2023 End: 08-15-2023 Emergency department patient visit [facility] Start: 08-13-2023 End: 08-14-2023 ambulatory NO PCP NO PCP [facility] Start: 08-07-2023 End: 08-08-2023 Emergency department patient visit [facility] Start: 08-07-2023 End: 08-07-2023 Emergency department patient visit [facility] Start: 06-01-2023 ambulatory Barak Engel acility:[facility] Start: 11-16-2022 End: 11-16-[address] NONE LISTED REQUEST Facility:[facility] Start: 08-25-2022 End: 08-25-[address] NONE LISTED REQUEST Facility:[facility] Start: 07-15-2022 End: 07-15-[address] NONE LISTED REQUEST Facility:[facility] Start: 05-25-2022 End: 05-26-[address] NONE LISTED REQUEST Facility:[facility] Start: 05-03-2022 End: 10-04-[address] DELICIA SPENCER . Facility:[facility] Start: 02-17-2022 End: 02-17-2022 ambulatory CHIKA CARMICHAEL . Facility:[facility] Payers Date Payer Category Payer Unknown [id number] 2023 Self-pay 1975 Unknown [id number] 2.16.84 [id number] 1975 Unknown [id number] 2.16.84 [id number] 1975 Unknown [id number] 2.16.84 [id number] 1975 Unknown [id number] 2.16.84 [id number] 1975 Unknown [id number] 2.16.84 [id number] 1975 Unknown [id number] 2.16.84 [id number] 1975 Unknown [id number] 2.16.84 [id number] 1975 Unknown [id number] 2.16.84 [id number] 1959 Medicaid [id number] 1959 Self-pay [id number] Unknown [id number] 2.16.84 [id number] Unknown [id number] 2.16.84 [id number] Unknown [id number] 2.16.84 [id number] Unknown [id number] 2.16.84 [id number] Unknown [id number] 2.16.84 [id number] Summary Purpose Family History No Family History Records FoundNo Family History Records FoundNo Family History Records Found Advance Directives No Advanced Directives Records FoundNo Advanced Directives Records FoundNo Advanced Directives Records Found Additional Source Comments (unrecognized sect ion and content) No Status Records FoundNo Status Records FoundNo Status Records Found INFORMATION SOURCE (unrecogn ized section and content) DATE CREATED AUTHOR 11/19/2022 [facility] DATE CREATED AUTHOR AUTHOR'S ORGANIZ ATION 08/17/2023 [facility] DATE CREATED AUTHOR AUTHOR'S ORGANIZ ATION 09/01/2023 [facility] FOR RECORDS PERTAINING TO PATIENTS WHO ARE OR HAVE BEEN ENROLLED IN A CHEMICAL DEPENDENCY/SUBSTANCEABUSE PROGRAM, SOME INFORMATION MAY BE OMITTED. This clinical summary was aggregated from multiple sources. Caution should be exercised in using it in the provision of clinical care. This summary normalizes information from multiple sources, and as a consequence, information in this document may materially change the coding, format and clinical context of patient data. In addition, data may be omitted in some cases. CLINICAL DECISIONS SHOULD BE BASED ON THE PRIMARY CLINICAL RECORDS. [facility] [employer] provides no warranty or guarantee of the accuracy or completeness of information in this document.
[2023-09-07] MEDS: LORAZEPAM 2 MG/ML 1 ML VIAL 1 MG IV (21:30)
--- NOTE | 2023-09-07 21:32 | CT_ITS ---
The [address] [address] Patient Name: SYLVIA OBANDO MRN: [id number] date: 1975 Sex: M Assigned Patient Location: ED.MAIN Current Patient Location: ER Accession/Order Number: [id number] Exam Date: 09/07/2023 22:04 Report Date: 09/07/2023 22:19 At the request of: NIKIA CAMPOS Procedure: CT head/brain wo con EXAM: CT head/brain wo con CLINICAL INDICATION: Seizure TECHNIQUE: Unenhanced computerized tomography of the head was performed. Automated dose reduction technique was employed. COMPARISON: None. FINDINGS: The ventricles are normal in size, configuration, and position for age. There is no convincing intra- or extra-axial mass, hemorrhage, or fluid collection. Prominent right transverse sinus. No areas of abnormal mass effect or attenuation are noted. Visualized paranasal sinuses are free of mucosal disease. No depressed calvarial fracture. Moderate scalp hematoma at the vertex on the left. CT/CT head/brain wo con IMPRESSION: No acute intracranial abnormality noted. Electronically authenticated by: BUD JULIEN Date: 09/07/2023 22:19
--- NOTE | 2023-09-07 21:32 | XR_ITS ---
The [address] [address] Patient Name: SYLVIA OBANDO MRN: [id number] date: 1975 Sex: M Assigned Patient Location: ED.MAIN Current Patient Location: ER Accession/Order Number: [id number] Exam Date: 09/07/2023 21:58 Report Date: 09/07/2023 22:10 At the request of: NIKIA CAMPOS Procedure: XR chest 1V CXR HISTORY: Seizure COMPARISON: 06/27/2023 chest x-ray TECHNIQUE: 1 view chest submitted for review. FINDINGS: The lungs are adequately expanded without evidence of acute infiltrate or effusion. The cardiac silhouette measures within normal. Pulmonary vascularity is unremarkable. Osseous structures do not demonstrate any acute abnormality. XR/XR chest 1V IMPRESSION: No plain film evidence for acute cardiopulmonary disease. Electronically authenticated by: MANJIT PHELPS Date: 09/07/2023 22:10
--- NOTE | 2023-09-07 21:32 | ECG_ITS ---
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
--- NOTE | 2023-09-07 21:33 | ED.SEIZURE1 ---
HPI - Seizure General Chief Complaint: Seizure Stated Complaint: Seizure Time Seen by Provider: 09/07/23 21:20 History of Present Illness HPI Narrative: 48-year-old male presents after having had a seizure. He has been having them nearly every day for the past 3 weeks since he got out of [facility]. His daughter accompanies him and gives most of the history. He has a history of seizures but has not been on medications for it for a few years. She states that he had a seizure today and hit his head on the stairs. Related Data Allergies Allergy/AdvReac Type Severity Reaction Status Date / Time iodine Allergy Verified 09/07/23 21:45 Review of Systems ROS Narrative Not obtainable, postictal [facility] Medical History (Updated 09/08/23 @ 02:40 by Willie Vargas MD) COPD with exacerbation ?J44.1 - Chronic obstructive pulmonary disease with (acute) exacerbation (ICD-10) Seizures, 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 (ICD-10) Enlarged prostate ?N40.0 - Benign prostatic hyperplasia without lower urinary tract symptoms (ICD-10) Suicidal ideation ?R45.851 - Suicidal ideations (ICD-10) Contusion of right wrist ?S60.211A - Contusion of right wrist, initial encounter (ICD-10) Surgical History (Updated 06/28/23 @ 05:12 by Ginny Trinh) History of appendectomy ?Z90.49 - Acquired absence of other specified parts of digestive tract (ICD-10) Family History (Updated 06/28/23 @ 05:13 by Ginny Trinh) Mother Family history of CHF (congestive heart failure) Family history of cancer Family history of myocardial infarction Father Family history of COPD (chronic obstructive pulmonary disease) Family history of hypertension Family history of myocardial infarction Social History (Updated 06/28/23 @ 05:15 by Ginny Trinh) Within the past year, how often did you have a drink containing alcohol: never Within the past year, how often did you have six or more drinks on one occasion: never Score interpretation: A score less than 4 is consistent with normal alcohol consumption. 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 Known occupational exposures/hazards: No Highest level of school completed/degree received: high school graduate Do you want help with school or training: No Are you now , , , , never or living with a partner: In a typical week, how many times do you talk on the telephone with family, friends, or neighbors: 3 or more times per week How often do you get together with friends or relatives: never How often do you attend restorationism or methodist services: never Do you belong to any clubs or organizations such as restorationism groups unions, fraternal or athletic groups, or school groups: no Total score: 1 Score interpretation: A score of less than or equal to 1 indicates the most socially isolated. Little interest or pleasure in doing things: nearly every day Feeling down, depressed, or hopeless: nearly every day Feel stressed/tense/nervous/anxious/difficulty sleeping: very much Life stressors: loss of job and financial matters Due to disability, difficulty making decisions: No Do you think of yourself as: straight/heterosexual Gender Identity: male Exam Narrative Exam Narrative: Nurses note and vital signs reviewed and patient is not hypoxic. General: The patient appears in no apparent distress. His eyes are closed. Skin: Warm, dry, no pallor noted. There is no rash noted. Head: Normocephalic, atraumatic Eye: Normal conjunctiva, no drainage, PERRL Ears, Nose, Mouth, and Throat: oral mucosa is moist. Nares patent. Cardiovascular: Regular Rate and Rhythm Respiratory: Patient is in no distress, no accessory muscle use, lungs are clear to auscultation, no wheezing, rales or rhonchi GI: Soft, nondistended, not apparently to Musculoskeletal: No extremity deformity or apparent tenderness Neurological: Postictal, initially nonverbal Psychiatric: Cannot be tested Constitutional Vital Signs, click to edit/add: Last Vital Signs Temp 97.7 F 09/07/23 21:25 Pulse 76 09/07/23 23:30 Resp 18 09/07/23 23:30 BP 128/64 09/07/23 23:00 Pulse Ox 94 L 09/07/23 23:00 O2 Del Method Room Air 09/07/23 21:25 Course Vital Signs Vital signs: Vital Signs Temperature 97.7 F 09/07/23 21:25 Pulse Rate 84 09/07/23 21:25 Respiratory Rate 18 09/07/23 21:25 Blood Pressure 146/85 H 09/07/23 21:25 Pulse Oximetry 95 09/07/23 21:25 Oxygen Delivery Method Room Air 09/07/23 21:25 Temperature 97.7 F 09/07/23 21:25 Pulse Rate 76 09/07/23 23:30 Respiratory Rate 18 09/07/23 23:30 Blood Pressure 128/64 09/07/23 23:00 Pulse Oximetry 94 L 09/07/23 23:00 Oxygen Delivery Method Room Air 09/07/23 21:25 MDM - Seizure MDM Narrative Medical decision making narrative: His workup is negative including CAT scan of the head. He was observed here and then was awake and alert and ambulatory and he is being released home. He will call his neurologist in the morning. Treatment diagnosis and follow-up were discussed with the patient. Lab Data Labs: Lab Results 09/07/23 Range/Units 21:32 WBC 11.5 H (4.0-11.0) 10^3/uL RBC 4.97 (4.70-6.10) 10^6/uL Hgb 15.1 (14.0-18.0) g/dL Hct 46.0 (42.0-54.0) % MCV 92.6 (80.0-94.0) fL MCH 30.4 (25.9-34.0) pg MCHC 32.8 (29.9-35.2) g/dL RDW 13.8 (11.0-15.0) % Plt Count 343 (150-450) 10^3/uL MPV 10.9 (9.5-13.5) fL Neut % (Auto) 59.2 (43.0-75.0) % Lymph % (Auto) 29.4 (20.5-60.0) % [place] % (Auto) 8.7 (1.7-12.0) % Eos % (Auto) 1.1 (0.9-7.0) % Baso % (Auto) 1.3 (0.2-2.0) % Neut # (Auto) 6.8 H (1.4-6.5) 10^3/uL Lymph # (Auto) 3.4 (1.2-3.8) 10^3/uL [place] # (Auto) 1.0 H (0.3-0.8) 10^3/uL Eos # (Auto) 0.1 (0.0-0.7) 10^3/uL Baso # (Auto) 0.2 H (0.0-0.1) 10^3/uL Abs Immat Gran (auto) 0.03 (0.00-0.03) 10^3/uL Imm/Tot Granulo (auto) 0.3 (0.0-0.5) % Sodium 145 (136-145) mmol/L Potassium 3.9 (3.5-5.1) mmol/L Chloride 103 (98-107) mmol/L Carbon Dioxide 26.8 (21.0-32.0) mmol/L Anion Gap 19.1 BUN 18.0 (7.0-18.0) mg/dL Creatinine 1.13 (0.70-1.30) mg/dL Est GFR ( Amer) >60 (>=60) Est GFR (Non-Af Amer) >60 (>=60) BUN/Creatinine Ratio 15.9 Glucose 56 L (74-106) mg/dL Calcium 9.6 (8.5-10.1) mg/dL Total Bilirubin 0.5 (0.2-1.0) mg/dL Direct Bilirubin 0.1 (0.0-0.2) mg/dL AST 25 (15-37) U/L ALT 21 (16-63) U/L Alkaline Phosphatase 77 (46-116) U/L Total Protein 8.8 H (6.4-8.2) g/dL Albumin 4.0 (3.4-5.0) g/dL Globulin 4.8 g/dL Albumin/Globulin Ratio 0.8 Ethanol Quant <3 mg/dL Imaging Data CT scan - head: Radiologist's impression: ITS Impressions Chest X-Ray 09/07/23 21:32 IMPRESSION: No plain film evidence for acute cardiopulmonary disease. Electronically authenticated by: MANJIT PHELPS Date: 09/07/2023 22:[address] 09/07/23 21:32 IMPRESSION: No acute intracranial abnormality noted. Electronically authenticated by: BUD JULIEN Date: 09/07/2023 22:[address] 09/07/23 21:41 IMPRESSION: No evidence for facial bone fracture or other acute finding. Electronically authenticated by: TRACEE HICKMAN Date: 09/07/2023 22:30 Discharge Plan Discharge Chief Complaint: Seizure Clinical Impression: Epileptic seizure Patient Disposition: Home, Self-Care Time of Disposition Decision: 02:40 Condition: Good Mode of Transportation: Private Vehicle Instructions: Epilepsy (ED), Recurrent Seizures in Adults (ED) Additional Instructions: Contact your neurologist in the morning Stand Alone Forms: Portal Instructions Referrals: Physician,Non-Staff, MD [Primary Care Provider] - 1 week
--- NOTE | 2023-09-07 21:41 | CT_ITS ---
The [address] [address] Patient Name: SYLVIA OBANDO MRN: [id number] date: 1975 Sex: M Assigned Patient Location: ER Current Patient Location: Accession/Order Number: [id number] Exam Date: 09/07/2023 22:04 Report Date: 09/07/2023 22:30 At the request of: NIKIA CAMPOS Procedure: CT facial bones wo con EXAM: CT facial bones wo con TECHNIQUE: Axial CT images were obtained through the facial bones along with sagittal and coronal reformatted images. Dose reduction techniques were achieved by using automated exposure control and/or adjustment of mA and/or kV according to patient size and/or use of iterative reconstruction technique. HISTORY: fall COMPARISON: None. FINDINGS: Fracture: None Orbits: Globes are intact. Extraocular musculature is unremarkable and symmetric. There is no retrobulbar hematoma. Soft tissues: unremarkable. Sinuses: Clear. CT/CT facial bones wo con IMPRESSION: No evidence for facial bone fracture or other acute finding. Electronically authenticated by: TRACEE HICKMAN Date: 09/07/2023 22:30
--- NOTE | 2023-09-07 21:56 | PC.NURSE ---
Pt. presents to ER for seizure like symptoms On arrival patient lost consciousness and started to have seizure like symptoms in lobby Code ngozi was called in the lobby, this nurse responded and found patient in wheelchair unresponsive with family and security, Pt. was wheeled to trauma bay 5 where he was lifted into bed by staff Vitals, EKG, Peripheral IV and labs were initiated Seizure precautions were initiated Respiratory therapy, lab, nursing accountant supervisor and doctor all at bedside Pt. was given 1mg Lorazepam Pt. exhibited clonic tonic movements for about 15-20 seconds in bed, Pt. airway was maintained Pt. sat up in bed and nurses oriented him to his surroundings. He was able to tell daughter and nurse at bedside that his head hurt On assessment pt's. forehead and left side of face appears red and edematous on left cheek Pt. able to be stimulated with sternal rub and other stimuli Pt's. daughter at bedside stated that the pt. has history of seizures but has been seizure free for about 9 years Pt's. daughter states that she heard a big bang in her house and found her dad laying on ground at approximately 21:00 She states that the pt. is not on any medications for seizures and is not taken any other mediations at the moment Pt. recently was released from correction and could be contributing to some stressors Pt's. daughter states that he had a medical card for Marijuana in [place] but has lost it since moving to [place] Pt's. daughter was updated on plan of care and she denies any further questions at this time. Pt. lying comfortably in bed, even and nonlabored respirations noted
[2023-09-07 22:09] LABS: Alanine Aminotransferase 21 U/L (16-63); Albumin Globulin Ratio 0.8; Alkaline Phosphatase 77 U/L (46-116); Aspartate Amino Transferase 25 U/L (15-37); Bilirubin Direct 0.1 mg/dL (0.0-0.2); Bilirubin Total 0.5 mg/dL (0.2-1.0); Ethanol <3 mg/dL; Globulin 4.8 g/dL; Total Protein 8.8 g/dL (6.4-8.2)
[2023-09-07 22:11] LABS: Anion Gap 19.1; BUN Creatinine Ratio 15.9; Calcium 9.6 mg/dL (8.5-10.1); Carbon Dioxide 26.8 mmol/L (21.0-32.0); Chloride 103 mmol/L (98-107); Estimated GFR (African America >60 (>=60); Estimated GFR (Non-African Ame >60 (>=60); Glucose 56 mg/dL (74-106); Sodium 145 mmol/L (136-145)
[2023-09-07 22:12] LABS: Basophils Absolute Auto 0.2 10^3/uL (0.0-0.1); Basophils Percent Auto 1.3 % (0.2-2.0); Eosinophils Absolute Auto 0.1 10^3/uL (0.0-0.7); Eosinophils Percent Auto 1.1 % (0.9-7.0); Hemoglobin 15.1 g/dL (14.0-18.0); Immature Granulocytes Abs Auto 0.03 10^3/uL (0.00-0.03); Immature Granulocytes Pct Auto 0.3 % (0.0-0.5); Lymphocytes Absolute Auto 3.4 10^3/uL (1.2-3.8); Lymphocytes Percent Auto 29.4 % (20.5-60.0); Mean Corpuscular HGB Conc 32.8 g/dL (29.9-35.2); Mean Corpuscular Hemoglobin 30.4 pg (25.9-34.0); Mean Corpuscular Volume 92.6 fL (80.0-94.0); Mean Platelet Volume 10.9 fL (9.5-13.5); Monocytes Percent Auto 8.7 % (1.7-12.0); Neutrophils Absolute Auto 6.8 10^3/uL (1.4-6.5); Neutrophils Percent Auto 59.2 % (43.0-75.0); Platelet Count 343 10^3/uL (150-450); Red Blood Count 4.97 10^6/uL (4.70-6.10); Red Cell Distribution Width 13.8 % (11.0-15.0); White Blood Count 11.5 10^3/uL (4.0-11.0)
[2023-09-07 22:21] LABS: Potassium 3.9 mmol/L (3.5-5.1)
--- NOTE | 2023-09-07 23:17 | PC.NURSE ---
Woke pt. up Attempted to ambulate, experienced some dizziness Pt. was able to take a few steps before returning to bed safely. Pt. was given something to drink before he returned to a comfortable position Pt. was updated on plan of care and denies any further questions at this time.
[2023-09-08] VITALS (17 sets, daily range): PULSE 64–77; RESP 13–19; O2SAT 96
== END 2023-09-08 02:54 | disposition home or self-care (01) ==
PROVIDERS: Emergency Provider Emergency Medicine
DX: G40.909 Epilepsy, unspecified, not intractable, without status epilepticus (principal); J44.9 Chronic obstructive pulmonary disease, unspecified; N40.0 Benign prostatic hyperplasia without lower urinary tract symptoms; Z90.49 Acquired absence of other specified parts of digestive tract; F17.210 Nicotine dependence, cigarettes, uncomplicated
CPT/HCPCS: 36415; 70450; 70486; 71045; 80048; 80076; 80307; 80320; 81001; 85025; 93005; 96374; 99285; J2060

== ENCOUNTER 2023-09-08 18:00 | Emergency (ER) | payer MEDICAID, SELFPAY ==
[2023-09-08 18:03] VITALS: BP 157/96; PULSE 86; RESP 18; TEMP 36.8; O2SAT 98; BMI 23.1
--- NOTE | 2023-09-08 18:05 | ECG_ITS ---
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
--- NOTE | 2023-09-08 18:09 | ED.SEIZURE1 ---
Documented by User: KENNEDY Robison 09/08/23 19:41 HPI - Seizure General Chief Complaint: Seizure Stated Complaint: SEIZURE Time Seen by Provider: 09/08/23 18:03 Source: family Mode of arrival: Wheelchair History of Present Illness HPI Narrative: Patient is a 48-year-old male who presents to the emergency department with his daughter for continued seizures. Patient was seen in this emergency department last night for the same. Daughter is the primary historian. Apparently the patient has had a history of seizures his whole life. She states up until recently he was using medical marijuana to manage his seizure disorder. He does not have a neurologist. He apparently got out of longterm 3 weeks ago and is no longer legally. Allowed to have a medical marijuana card so he has not had anything to manage his seizure disorder. He had seizures last night with a head injury and was seen in this emergency department and discharged home to follow-up with a neurologist. They do not currently have one and attempted to call the office today but were not able to get a hold of anyone.Daughter states that the patient contacted her about half an hour ago saying that he felt 1 coming on and she found him having seizure activity. No new falls or injuries. He did not bite his tongue, daughter states he was incontinent of urine. Seizure History: Yes Related Data Previous Rx's Medication Instructions Recorded levetiracetam 500 mg tablet 500 mg PO Q12H #20 tabs 09/08/23 (Keppra) Allergies Allergy/AdvReac Type Severity Reaction Status Date / Time iodine Allergy Verified 09/07/23 21:45 Review of Systems ROS Constitutional Denies: fever or chills Ears, nose, mouth, and throat Denies: throat pain or nasal congestion Cardiovascular Denies: chest pain Respiratory Denies: shortness of breath Gastrointestinal Denies: nausea or vomiting Musculoskeletal Denies: back pain or neck pain Integumentary/Breast Denies: rash Neurological Denies: headache PFSH PFSH Medical History (Updated 09/08/23 @ 19:38 by KENNEDY Robison) COPD with exacerbation ?J44.1 - Chronic obstructive pulmonary disease with (acute) exacerbation (ICD-10) Seizures, 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 (ICD-10) Enlarged prostate ?N40.0 - Benign prostatic hyperplasia without lower urinary tract symptoms (ICD-10) Suicidal ideation ?R45.851 - Suicidal ideations (ICD-10) Contusion of right wrist ?S60.211A - Contusion of right wrist, initial encounter (ICD-10) Surgical History (Updated 06/28/23 @ 05:12 by Ginny Trinh) History of appendectomy ?Z90.49 - Acquired absence of other specified parts of digestive tract (ICD-10) Family History (Updated 06/28/23 @ 05:13 by Ginny Trinh) Mother Family history of CHF (congestive heart failure) Family history of cancer Family history of myocardial infarction Father Family history of COPD (chronic obstructive pulmonary disease) Family history of hypertension Family history of myocardial infarction Social History Within the past year, how often did you have a drink containing alcohol: never Within the past year, how often did you have six or more drinks on one occasion: never Score interpretation: A score less than 4 is consistent with normal alcohol consumption. 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 Known occupational exposures/hazards: No Highest level of school completed/degree received: high school graduate Do you want help with school or training: No Are you now , , , , never or living with a partner: In a typical week, how many times do you talk on the telephone with family, friends, or neighbors: 3 or more times per week How often do you get together with friends or relatives: never How often do you attend pentecostal or sikh services: never Do you belong to any clubs or organizations such as pentecostal groups unions, fraternal or athletic groups, or school groups: no Total score: 1 Score interpretation: A score of less than or equal to 1 indicates the most socially isolated. Little interest or pleasure in doing things: nearly every day Feeling down, depressed, or hopeless: nearly every day Feel stressed/tense/nervous/anxious/difficulty sleeping: very much Life stressors: loss of job and financial matters Due to disability, difficulty making decisions: No Do you think of yourself as: straight/heterosexual Gender Identity: male Exam Constitutional Vital Signs, click to edit/add: Last Vital Signs Temp 98.3 F 09/08/23 18:03 Pulse 66 09/08/23 19:18 Resp 16 09/08/23 19:18 BP 123/82 09/08/23 19:18 Pulse Ox 95 09/08/23 19:18 O2 Del Method Room Air 09/08/23 19:18 Course Vital Signs Vital signs: Vital Signs Temperature 98.3 F 09/08/23 18:03 Pulse Rate 86 09/08/23 18:03 Respiratory Rate 18 09/08/23 18:03 Blood Pressure 157/96 H 09/08/23 18:03 Pulse Oximetry 98 09/08/23 18:03 Temperature 98.3 F 09/08/23 18:03 Pulse Rate 66 09/08/23 19:18 Respiratory Rate 16 09/08/23 19:18 Blood Pressure 123/82 09/08/23 19:18 Pulse Oximetry 95 09/08/23 19:18 Oxygen Delivery Method Room Air 09/08/23 19:18 MDM - Seizure MDM Narrative Medical decision making narrative: Patient treated with IV fluids, Keppra, Zofran in the ER. Lab studies and EKG are unremarkable and I discussed the case with Dr. Rubin for advanced neurology. He is in agreement that the patient can be discharged home to follow-up as an outpatient. He recommended Keppra 500 mg twice daily. Patient will be started on a 2-week supply of this, follow-up with advanced neurology and return to the emergency department if symptoms change or worsen. Medical Records Attestation: I reviewed the patient's medical records. Lab Data Attestation: I reviewed the patient's lab results. Labs: Lab Results 09/08/23 Range/Units 18:18 WBC 10.5 (4.0-11.0) 10^3/uL RBC 4.68 L (4.70-6.10) 10^6/uL Hgb 14.3 (14.0-18.0) g/dL Hct 43.0 (42.0-54.0) % MCV 91.9 (80.0-94.0) fL MCH 30.6 (25.9-34.0) pg MCHC 33.3 (29.9-35.2) g/dL RDW 13.9 (11.0-15.0) % Plt Count 334 (150-450) 10^3/uL MPV 9.5 (9.5-13.5) fL Neut % (Auto) 62.3 (43.0-75.0) % Lymph % (Auto) 25.9 (20.5-60.0) % [place] % (Auto) 9.5 (1.7-12.0) % Eos % (Auto) 1.0 (0.9-7.0) % Baso % (Auto) 1.0 (0.2-2.0) % Neut # (Auto) 6.5 (1.4-6.5) 10^3/uL Lymph # (Auto) 2.7 (1.2-3.8) 10^3/uL [place] # (Auto) 1.0 H (0.3-0.8) 10^3/uL Eos # (Auto) 0.1 (0.0-0.7) 10^3/uL Baso # (Auto) 0.1 (0.0-0.1) 10^3/uL Abs Immat Gran (auto) 0.03 (0.00-0.03) 10^3/uL Imm/Tot Granulo (auto) 0.3 (0.0-0.5) % Sodium 141 (136-145) mmol/L Potassium 3.5 (3.5-5.1) mmol/L Chloride 103 (98-107) mmol/L Carbon Dioxide 25.9 (21.0-32.0) mmol/L Anion Gap 15.6 BUN 21.0 H (7.0-18.0) mg/dL Creatinine 1.13 (0.70-1.30) mg/dL Est GFR ( Amer) >60 (>=60) Est GFR (Non-Af Amer) >60 (>=60) BUN/Creatinine Ratio 18.6 Glucose 78 (74-106) mg/dL Calcium 9.1 (8.5-10.1) mg/dL Total Bilirubin 0.5 (0.2-1.0) mg/dL AST 19 (15-37) U/L ALT 20 (16-63) U/L Alkaline Phosphatase 73 (46-116) U/L Troponin I High Sens 5.5 (4.0-76.1) pg/mL NT-Pro-B Natriuret Pep 50.0 (<=450.0) pg/mL Total Protein 8.4 H (6.4-8.2) g/dL Albumin 3.9 (3.4-5.0) g/dL Globulin 4.5 g/dL Albumin/Globulin Ratio 0.9 Lipase 32.0 (16.0-77.0) U/L Imaging Data Chest x-ray: Attestation: I have reviewed the pertinent imaging results. Radiologist's impression: ITS Impressions Chest X-Ray 09/08/23 18:22 IMPRESSION: No acute findings. Electronically authenticated by: EARL MOLINA Date: 09/08/2023 19:14 ECG Data Attestation: I personally reviewed and interpreted this ECG as follows: (Normal sinus rhythm at a rate of 90, no acute ST elevation or ectopy.EKG reviewed by attending physician) Discharge Plan Discharge Chief Complaint: Seizure Clinical Impression: Seizure disorder Patient Disposition: Home, Self-Care Time of Disposition Decision: 19:37 Condition: Good Prescriptions / Home Meds: New levetiracetam [Keppra] 500 mg tablet 500 mg PO Q12H Qty: 20 0RF Instructions: Recurrent Seizures in Adults (ED) Stand Alone Forms: Portal Instructions Referrals: SAM HERZOG [Physician] - 1 week Physician,Non-Staff, [Primary Care Provider] - 1 week Documented by User: Louis Roque MD 09/08/23 19:43 HPI - Seizure General Chief Complaint: Seizure Stated Complaint: SEIZURE Time Seen by Provider: 09/08/23 18:03 Related Data Previous Rx's Medication Instructions Recorded levetiracetam 500 mg tablet 500 mg PO Q12H #20 tabs 09/08/23 (Keppra) Allergies Allergy/AdvReac Type Severity Reaction Status Date / Time iodine Allergy Verified 09/07/23 21:45 PFSH PFSH Medical History (Updated 09/08/23 @ 19:38 by KENNEDY Robison) COPD with exacerbation ?J44.1 - Chronic obstructive pulmonary disease with (acute) exacerbation (ICD-10) Seizures, 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 (ICD-10) Enlarged prostate ?N40.0 - Benign prostatic hyperplasia without lower urinary tract symptoms (ICD-10) Suicidal ideation ?R45.851 - Suicidal ideations (ICD-10) Contusion of right wrist ?S60.211A - Contusion of right wrist, initial encounter (ICD-10) Surgical History (Updated 06/28/23 @ 05:12 by Ginny Trinh) History of appendectomy ?Z90.49 - Acquired absence of other specified parts of digestive tract (ICD-10) Family History (Updated 06/28/23 @ 05:13 by Ginny Trinh) Mother Family history of CHF (congestive heart failure) Family history of cancer Family history of myocardial infarction Father Family history of COPD (chronic obstructive pulmonary disease) Family history of hypertension Family history of myocardial infarction Social History Within the past year, how often did you have a drink containing alcohol: never Within the past year, how often did you have six or more drinks on one occasion: never Score interpretation: A score less than 4 is consistent with normal alcohol consumption. 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 Known occupational exposures/hazards: No Highest level of school completed/degree received: high school graduate Do you want help with school or training: No Are you now , , , , never or living with a partner: In a typical week, how many times do you talk on the telephone with family, friends, or neighbors: 3 or more times per week How often do you get together with friends or relatives: never How often do you attend pentecostal or sikh services: never Do you belong to any clubs or organizations such as pentecostal groups unions, fraternal or athletic groups, or school groups: no Total score: 1 Score interpretation: A score of less than or equal to 1 indicates the most socially isolated. Little interest or pleasure in doing things: nearly every day Feeling down, depressed, or hopeless: nearly every day Feel stressed/tense/nervous/anxious/difficulty sleeping: very much Life stressors: loss of job and financial matters Due to disability, difficulty making decisions: No Do you think of yourself as: straight/heterosexual Gender Identity: male Exam Constitutional Vital Signs, click to edit/add: Last Vital Signs Temp 98.3 F 09/08/23 18:03 Pulse 66 09/08/23 19:18 Resp 16 09/08/23 19:18 BP 123/82 09/08/23 19:18 Pulse Ox 95 09/08/23 19:18 O2 Del Method Room Air 09/08/23 19:18 Course Vital Signs Vital signs: Vital Signs Temperature 98.3 F 09/08/23 18:03 Pulse Rate 86 09/08/23 18:03 Respiratory Rate 18 09/08/23 18:03 Blood Pressure 157/96 H 09/08/23 18:03 Pulse Oximetry 98 09/08/23 18:03 Temperature 98.3 F 09/08/23 18:03 Pulse Rate 66 09/08/23 19:18 Respiratory Rate 16 09/08/23 19:18 Blood Pressure 123/82 09/08/23 19:18 Pulse Oximetry 95 09/08/23 19:18 Oxygen Delivery Method Room Air 09/08/23 19:18 MDM - Seizure MDM Narrative Medical decision making narrative: Patient treated with IV fluids, Keppra, Zofran in the ER. Lab studies and EKG are unremarkable and I discussed the case with Dr. Rubin for advanced neurology. He is in agreement that the patient can be discharged home to follow-up as an outpatient. He recommended Keppra 500 mg twice daily. Patient will be started on a 2-week supply of this, follow-up with advanced neurology and return to the emergency department if symptoms change or worsen. I, Dr Roque, have reviewed the above progress note and course of action in the ER; agree with the above. I have gone over history and physical, and discussed disposition and treatment plan with the patient. Lab Data Labs: Lab Results 09/08/23 Range/Units 18:18 WBC 10.5 (4.0-11.0) 10^3/uL RBC 4.68 L (4.70-6.10) 10^6/uL Hgb 14.3 (14.0-18.0) g/dL Hct 43.0 (42.0-54.0) % MCV 91.9 (80.0-94.0) fL MCH 30.6 (25.9-34.0) pg MCHC 33.3 (29.9-35.2) g/dL RDW 13.9 (11.0-15.0) % Plt Count 334 (150-450) 10^3/uL MPV 9.5 (9.5-13.5) fL Neut % (Auto) 62.3 (43.0-75.0) % Lymph % (Auto) 25.9 (20.5-60.0) % [place] % (Auto) 9.5 (1.7-12.0) % Eos % (Auto) 1.0 (0.9-7.0) % Baso % (Auto) 1.0 (0.2-2.0) % Neut # (Auto) 6.5 (1.4-6.5) 10^3/uL Lymph # (Auto) 2.7 (1.2-3.8) 10^3/uL [place] # (Auto) 1.0 H (0.3-0.8) 10^3/uL Eos # (Auto) 0.1 (0.0-0.7) 10^3/uL Baso # (Auto) 0.1 (0.0-0.1) 10^3/uL Abs Immat Gran (auto) 0.03 (0.00-0.03) 10^3/uL Imm/Tot Granulo (auto) 0.3 (0.0-0.5) % Sodium 141 (136-145) mmol/L Potassium 3.5 (3.5-5.1) mmol/L Chloride 103 (98-107) mmol/L Carbon Dioxide 25.9 (21.0-32.0) mmol/L Anion Gap 15.6 BUN 21.0 H (7.0-18.0) mg/dL Creatinine 1.13 (0.70-1.30) mg/dL Est GFR ( Amer) >60 (>=60) Est GFR (Non-Af Amer) >60 (>=60) BUN/Creatinine Ratio 18.6 Glucose 78 (74-106) mg/dL Calcium 9.1 (8.5-10.1) mg/dL Total Bilirubin 0.5 (0.2-1.0) mg/dL AST 19 (15-37) U/L ALT 20 (16-63) U/L Alkaline Phosphatase 73 (46-116) U/L Troponin I High Sens 5.5 (4.0-76.1) pg/mL NT-Pro-B Natriuret Pep 50.0 (<=450.0) pg/mL Total Protein 8.4 H (6.4-8.2) g/dL Albumin 3.9 (3.4-5.0) g/dL Globulin 4.5 g/dL Albumin/Globulin Ratio 0.9 Lipase 32.0 (16.0-77.0) U/L Imaging Data Chest x-ray: Radiologist's impression: ITS Impressions Chest X-Ray 09/08/23 18:22 IMPRESSION: No acute findings. Electronically authenticated by: EARL MOLINA Date: 09/08/2023 19:14 Discharge Plan Discharge Chief Complaint: Seizure Clinical Impression: Seizure disorder Patient Disposition: Home, Self-Care Time of Disposition Decision: 19:37 Condition: Good Prescriptions / Home Meds: New levetiracetam [Keppra] 500 mg tablet 500 mg PO Q12H Qty: 20 0RF Instructions: Recurrent Seizures in Adults (ED) Stand Alone Forms: Portal Instructions Referrals: SAM HERZOG [Physician] - 1 week Physician,Non-Staff, MD [Primary Care Provider] - 1 week
[2023-09-08] MEDS: 0.9 % SODIUM CHLORIDE 1,000 ML 1000 ML IV (18:19)
[2023-09-08] MEDS: ONDANSETRON PF 4 MG/2 ML VIAL IV (18:19)
--- NOTE | 2023-09-08 18:22 | XR_ITS ---
[facility] [place] [id number] Patient Name: SYLVIA OBANDO MRN: [facility]:[id number] date: 1975 Sex: M Assigned Patient Location: ER Current Patient Location: ER Accession/Order Number: [id number] Exam Date: 09/08/2023 18:20 Report Date: 09/08/2023 19:14 At the request of: ISELA STRINGER Procedure: XR chest 1V EXAM: XR chest 1V HISTORY: seizure COMPARISON: 09/07/2023 TECHNIQUE: Single view of the chest FINDINGS: Heart size normal. No focal consolidation, pleural effusion, pulmonary congestion or pneumothorax. XR/XR chest 1V IMPRESSION: No acute findings. Electronically authenticated by: EARL MOLINA Date: 09/08/2023 19:14
--- OUTSIDE RECORDS SUMMARY | 2023-09-08 18:23 | XMS_ITS | CCD ---
Author Name Unknown Address [address] [place] [address] [address] [place] [address] Organization [facility] Care Team Providers Care Scholarship Counselor Name Role Phone REQUEST, NONE LISTED Primary Care Unavaila ble JOI REYES Admitting Unavailable JOI REYES Attending Unavailable JOI REYES Consulting Unavailable REQUEST, NONE LISTED Primary [...] Containting Drugs) Drug allergy (disorder) 02-17-2022 [facility] Repository (1 source) Shellfish Drug allergy (disorder) 02-17-2022 [facility] Repository (1 source) Povidone-Iodine; Translations: [...] 08-13-2023 Episodic Other aftercare (1 source) Other detention (current) drug therapy; 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] Onset: 08-29-2022 Episodic Other [...] 08-14-19 ABSOLUTE BASOPHIL 0.1 X10E9/L Normal 0.0-0.2 [facility] Comment on above: Performed By: #### C JALIL, BMP #### [facility] ([id number]) [address] [place] [address] 20698 ABSOLUTE NEUTROPHIL 4.6 X10E9/L Normal 1.5-6.6 [facility] Comment on above: Performed By: #### C BCA, BMP #### [facility] ([id number]) [address] [place] [address] 19177 Basophils/100 WBC (Bld) 1.2 % Normal [facility] Comment on above: Performed By: #### C JALIL, BMP #### [facility] ([id number]) [address] [place] [address] 93623 Eosinophils (Bld) [#/Vol] 0.1 10*3/uL Normal 0.0-0.4 [facility] Comment on above: Performed By: #### C JALIL, BMP #### [facility] ([id number]) [address] [place] [address] 36674 Eosinophils/100 WBC (Bld) 1.7 % Normal [facility] Comment on above: Performed By: #### C JALIL, BMP #### [facility] ([id number]) [address] [place] [address] 89815 Erythrocyte distribution width (RBC) [Ratio] 14.4 % Normal 11.5-15.0 [facility] Comment on above: Performed By: #### C JALIL, BMP #### [facility] ([id number]) [address] [place] [address] 66689 Hematocrit (Bld) [Volume fraction] 46.6 % Normal 39-49 [facility] Comment on above: Performed By: #### C JALIL, BMP #### [facility] ([id number]) [address] [place] [address] 93351 Hemoglobin (Bld) [Mass/Vol] 15.9 g/dL Normal 13.0-17.0 [facility] Comment on above: Performed By: #### C JALIL, BMP #### [facility] ([id number]) [address] [place] [address] 00078 Lymphocytes (Bld) [#/Vol] 2.9 10*3/uL Normal 1.0-3.5 [facility] Comment on above: Performed By: #### C JALIL, BMP #### [facility] ([id number]) [address] [place] [address] Lymphocytes/100 WBC (Bld) 33.3 % Normal [facility] Comment on above: Performed By: #### C JALIL, BMP #### [facility] ([id number]) [address] [place] [address] 58451 MCH (RBC) [Entitic mass] 30.7 pg Normal 27-34 [facility] Comment on above: Performed By: #### C JALIL, BMP #### [facility] ([id number]) [address] [place] [address] 13141 MCHC (RBC) [Mass/Vol] 34.0 g/dL Normal 32-36 [facility] Comment on above: Performed By: #### C JALIL, BMP #### [facility] ([id number]) [address] [place] [address] 38427 MCV (RBC) [Entitic vol] 90 fL Normal 80-100 [facility] Comment on above: Performed By: #### C JALIL, BMP #### [facility] ([id number]) [address] [place] [address] 86052 Monocytes (Bld) [#/Vol] 0.8 10*3/uL Normal 0-0.9 [facility] Comment on above: Performed By: #### C JALIL, BMP #### [facility] ([id number]) [address] [place] [address] 24890 Monocytes/100 WBC (Bld) 9.7 % Normal [facility] Comment on above: Performed By: #### C JALIL, BMP #### [facility] ([id number]) [address] [place] [address] 24177 Neutrophils/100 WBC (Bld) 54.1 % Normal [facility] Comment on above: Performed By: #### C JALIL, BMP #### [facility] ([id number]) [address] [place] [address] Platelet mean volume (Bld) [Entitic vol] 8.5 fL Normal 7-12 [facility] Comment on above: Performed By: #### C JALIL, BMP #### [facility] ([id number]) [address] [place] [address] 74044 Platelets (Bld) [#/Vol] 360 10*3/uL Normal 150-450 [facility] Comment on above: Performed By: #### C JALIL, BMP #### [facility] ([id number]) [address] [place] [address] 80480 RBC COUNT 5.17 X10E12/L Normal 4.10-5.70 [facility] Comment on above: Performed By: #### C JALIL, BMP #### [facility] ([id number]) [address] [place] [address] 41581 WBC (Bld) [#/Vol] 8.6 10*3/uL Normal 4.0-11.0 [facility] Comment on above: Performed By: #### C JALIL, BMP #### [facility] ([id number]) [address] [place] [address] 04902 COMPREHENSIVE METABOLIC PANE Sheldon 08-14-2023 Albumin [Mass/Vol] 4.0 g/dL Normal 3.2-5.3 [facility] Comment on above: Performed By: #### C JALIL, BMP #### [facility] ([id number]) [address] [place] [address] 59331 ALP [Catalytic activity/Vol] 78 U/L Normal 39-130 [facility] Comment on above: Performed By: #### C JALIL, BMP #### [facility] ([id number]) [address] [place] [address] 49045 ALT [Catalytic activity/Vol] 14 U/L Normal 0-40 [facility] Comment on above: Performed By: #### C BCA, BMP #### [facility] ([id number]) [address] [place] [address] 91905 Anion gap [Moles/Vol] 10 mmol/L Normal 5-15 [facility] Comment on above: Performed By: #### C BCA, BMP #### [facility] ([id number]) [address] [place] [address] 34532 AST [Catalytic activity/Vol] 19 U/L Normal 0-41 [facility] Comment on above: Performed By: #### C BCA, BMP #### [facility] ([id number]) [address] [place] [address] 61133 Bilirubin [Mass/Vol] 0.6 mg/dL Normal 0.3-1.2 [facility] Comment on above: Performed By: #### C BCA, BMP #### [facility] ([id number]) [address] [place] [address] 93871 Calcium [Mass/Vol] 9.0 mg/dL Normal 8.5-10.5 [facility] Comment on above: Performed By: #### C BCA, BMP #### [facility] ([id number]) [address] [place] [address] 65271 Chloride [Moles/Vol] 102 mmol/L Normal 98-109 [facility] Comment on above: Performed By: #### C BCA, BMP #### [facility] ([id number]) [address] [place] [address] 76983 CO2 [Moles/Vol] 24 mmol/L Normal 22-32 [facility] Comment on above: Performed By: #### C BCA, BMP #### [facility] ([id number]) [address] [place] [address] [place] [address] Creatinine [Mass/Vol] 1.12 mg/dL Normal 0.70-1.20 [facility] Comment on above: Result Comment: METH OD TRACEABLE TO IDMS STANDARD Performed By: #### C BCA, BMP #### [facility] ([id number]) [address] [place] [address] 30280 GFR/1.73 sq M.predicted among non-blacks MDRD (S/P/Bld) [Vol rate/Area] 81 mL/min/{1.73_m2} Normal >59 [facility] Comment on above: Result Comment: Reported eGFR is based on the CKD-EPI 2020 equation that does not use a race coefficient. Performed By: #### C BCA, BMP #### [facility] ([id number]) [address] [place] [address] 38909 Glucose [Mass/Vol] 101 mg/dL High 65-99 [facility] Comment on above: Performed By: #### C BCA, BMP #### [facility] ([id number]) [address] [place] [address] 92579 Potassium [Moles/Vol] 4.0 mmol/L Normal 3.5-5.0 [facility] Comment on above: Performed By: #### C BCA, BMP #### [facility] ([id number]) [address] [place] [address] 12932 Protein [Mass/Vol] 7.7 g/dL Normal 6.0-8.0 [facility] Comment on above: Performed By: #### C BCA, BMP #### [facility] ([id number]) [address] [place] [address] 62866 Sodium [Moles/Vol] 136 mmol/L Normal 134-146 [facility] Comment on above: Performed By: #### C BCA, BMP #### [facility] ([id number]) [address] [place] [address] 93442 Urea nitrogen [Mass/Vol] 18 mg/dL Normal 5-23 [facility] Comment on above: Performed By: #### C BCA, BMP #### [facility] ([id number]) [address] [facility] [place] [address] XR CHEST 1 VWon 08-14-2023 XR CHEST [...] on 08/14/2023 6:22 AM Normal [facility] levETIRAcetam [Mass/Vol]on 0 08-14-2023 LEVETIRACETAM See Below Normal [facility] Comment on above: Result Comment: NOTE TEST [...] developed and its performance characteristics determined by [facility] Pathology and Laboratory Medicine [place] ([facility] It has not been cleared or approved by the FDA. -[facility] is regulated under CLIA as qualified to perform high-complexity testing. This test is used for clinical purposes. It should not be regarded as investigational or for research. Test Performed By: [facility] [employer] [address] [place] [address] Wood Cabinetmaker: Lamont Craft III, M.D. CLIA #[id number] Performed By: #### C BCA, BMP #### [facility] ([id number]) [address] [place] [address] 12158 CBC AND AUTO DIFFon 08-13-19 24 ABSOLUTE BASOPHIL 0.1 X10E9/L Normal 0.0-0.2 [facility] Comment on above: Performed By: #### 1 39-9, , CBCA, 94963-8, CMP #### [facility] ([id number]) [address] [place] [address] 20435 ABSOLUTE NEUTROPHIL 4.5 X10E9/L Normal 1.5-6.6 [facility] Comment on above: Performed By: #### 1 39-9, , CBCA, 55108-8, CMP #### [facility] ([id number]) [address] [place] [address] 73607 Basophils/100 WBC (Bld) 1.4 % Normal [facility] Comment on above: Performed By: #### 1 399, , CBCA, 38325-6, CMP #### [facility] ([id number]) [address] [place] [address] 70802 Eosinophils (Bld) [#/Vol] 0.1 10*3/uL Normal 0.0-0.4 [facility] Comment on above: Performed By: #### 1 39-9, , CBCA, 91211-8, CMP #### [facility] ([id number]) [address] [place] [address] 13433 Eosinophils/100 WBC (Bld) 1.1 % Normal [facility] Comment on above: Performed By: #### 1 39-9, , CBCA, 62786-3, CMP #### [facility] ([id number]) [address] [place] [address] 09625 Erythrocyte distribution width (RBC) [Ratio] 14.4 % Normal 11.5-15.0 [facility] Comment on above: Performed By: #### 1 9, , CBCA, 87285-6, CMP #### [facility] ([id number]) [address] [place] [address] 20761 Hematocrit (Bld) [Volume fraction] 49.5 % High 39-49 [facility] Comment on above: Performed By: #### 1 9, , CBCA, 11825-0, CMP #### [facility] ([id number]) [address] [place] [address] 35349 Hemoglobin (Bld) [Mass/Vol] 17.3 g/dL High 13.0-17.0 [facility] Comment on above: Performed By: #### 1 9, , CBCA, 02716-7, CMP #### [facility] ([id number]) [address] [place] [address] 69905 Lymphocytes (Bld) [#/Vol] 2.0 10*3/uL Normal 1.0-3.5 [facility] Comment on above: Performed By: #### 1 9, , CBCA, 58568-0, CMP #### [facility] ([id number]) [address] [place] [address] 59565 Lymphocytes/100 WBC (Bld) 27.2 % Normal [facility] Comment on above: Performed By: #### 1 399, , CBCA, 33020-1, CMP #### [facility] ([id number]) [address] [place] [address] 61680 MCH (RBC) [Entitic mass] 31.3 pg Normal 27-34 [facility] Comment on above: Performed By: #### 1 838-9, , CBCA, 55601-9, CMP #### [facility] ([id number]) [address] [place] [address] 44141 MCHC (RBC) [Mass/Vol] 35.0 g/dL Normal 32-36 [facility] Comment on above: Performed By: #### 1 39-9, , CBCA, 58942-4, CMP #### [facility] ([id number]) [address] [place] [address] 73072 MCV (RBC) [Entitic vol] 89 fL Normal 80-100 [facility] Comment on above: Performed By: #### 1 838-9, , CBCA, 62008-3, CMP #### [facility] ([id number]) [address] [place] [address] 88695 Monocytes (Bld) [#/Vol] 0.5 10*3/uL Normal 0-0.9 [facility] Comment on above: Performed By: #### 1 39-9, , CBCA, 73155-6, CMP #### [facility] ([id number]) [address] [place] [address] 19025 Monocytes/100 WBC (Bld) 7.5 % Normal [facility] Comment on above: Performed By: #### 1 39-9, , CBCA, 78696-1, CMP #### [facility] ([id number]) [address] [place] [address] 34535 Neutrophils/100 WBC (Bld) 62.8 % Normal [facility] Comment on above: Performed By: #### 1 39-9, , CBCA, 23685-2, CMP #### [facility] ([id number]) [address] [place] [address] 25770 Platelet mean volume (Bld) [Entitic vol] 8.5 fL Normal 7-12 [facility] Comment on above: Performed By: #### 1 39-9, , CBCA, 94238-8, CMP #### [facility] ([id number]) [address] [place] [address] 85658 Platelets (Bld) [#/Vol] 409 10*3/uL Normal 150-450 [facility] Comment on above: Performed By: #### 1 39-9, , CBCA, 16192-3, CMP #### [facility] ([id number]) [address] [place] [address] 43730 RBC COUNT 5.54 X10E12/L Normal 4.10-5.70 [facility] Comment on above: Performed By: #### 1 39-9, , CBCA, 32896-5, CMP #### [facility] ([id number]) [address] [place] [address] 46204 WBC (Bld) [#/Vol] 7.2 10*3/uL Normal 4.0-11.0 [facility] Comment on above: Performed By: #### 1 39-9, , CBCA, 20568-7, CMP #### [facility] ([id number]) [address] [place] [address] 19758 COMPREHENSIVE METABOLIC PANE Sheldon 08-13-2023 Albumin [Mass/Vol] 5.4 g/dL High 3.2-5.3 [facility] Comment on above: Performed By: #### 1 39-9, 02327-0, CBCA, 84781-6, CMP #### [facility] ([id number]) [address] [place] [address] 81074 ALP [Catalytic activity/Vol] 92 U/L Normal 39-130 [facility] Comment on above: Performed By: #### 1 39-9, 14968-3, CBCA, 20353-3, CMP #### [facility] ([id number]) [address] [place] [address] 89441 ALT [Catalytic activity/Vol] 18 U/L Normal 0-40 [facility] Comment on above: Performed By: #### 1 39-9, 40969-8, CBCA, 46525-3, CMP #### [facility] ([id number]) [address] [place] [address] 78663 Anion gap [Moles/Vol] 10 mmol/L Normal 5-15 [facility] Comment on above: Performed By: #### 1 39-9, , CBCA, 72594-5, CMP #### [facility] ([id number]) [address] [place] [address] 07654 AST [Catalytic activity/Vol] 21 U/L Normal 0-41 [facility] Comment on above: Performed By: #### 1 9, , CBCA, 26527-3, CMP #### [facility] ([id number]) [address] [place] [address] 48977 Bilirubin [Mass/Vol] 0.5 mg/dL Normal 0.3-1.2 [facility] Comment on above: Performed By: #### 1 39-9, , CBCA, 46042-7, CMP #### [facility] ([id number]) [address] [place] [address] 19055 Calcium [Mass/Vol] 9.9 mg/dL Normal 8.5-10.5 [facility] Comment on above: Performed By: #### 1 39-9, , CBCA, 59775-2, CMP #### [facility] ([id number]) [address] [place] [address] 59691 Chloride [Moles/Vol] 101 mmol/L Normal 98-109 [facility] Comment on above: Performed By: #### 1 39-9, , CBCA, 04553-0, CMP #### [facility] ([id number]) [address] [place] [address] 22031 CO2 [Moles/Vol] 25 mmol/L Normal 22-32 [facility] Comment on above: Performed By: #### 1 39-9, , CBCA, 80401-3, CMP #### [facility] ([id number]) [address] [place] [address] 31054 Creatinine [Mass/Vol] 0.98 mg/dL Normal 0.70-1.20 [facility] Comment on above: Result Comment: METH OD TRACEABLE TO IDMS STANDARD Performed By: #### 1 39-9, , CBCA, 73087-4, CMP #### [facility] ([id number]) [address] [place] [address] 90918 eGFR (CKD-EPI) NON-RACE DEPENDENT >90 Normal >59 [facility] Comment on above: Result Comment: Reported eGFR is based on the CKD-EPI 2020 equation that does not use a race coefficient. Performed By: #### 1 39-9, , CBCA, 76076-7, CMP #### [facility] ([id number]) [address] [place] [address] 74123 Glucose [Mass/Vol] 90 mg/dL Normal 65-99 [facility] Comment on above: Performed By: #### 1 39-9, , CBCA, 79621-9, CMP #### [facility] ([id number]) [address] [place] [address] 15703 Potassium [Moles/Vol] 4.2 mmol/L Normal 3.5-5.0 [facility] Comment on above: Performed By: #### 1 39-9, , CBCA, 43531-6, CMP #### [facility] ([id number]) [address] [place] [address] 15235 Protein [Mass/Vol] 9.9 g/dL High 6.0-8.0 [facility] Comment on above: Performed By: #### 1 0839-9, 99892-1, CBCA, 58078-4, CMP #### [facility] ([id number]) [address] [place] [address] 32994 Sodium [Moles/Vol] 136 mmol/L Normal 134-146 [facility] Comment on above: Performed By: #### 1 0839-9, 55094-0, CBCA, 07639-3, CMP #### [facility] ([id number]) [address] [place] [address] 20135 Urea nitrogen [Mass/Vol] 19 mg/dL Normal 5-23 [facility] Comment on above: Performed By: #### 1 0839-9, 15502-4, CBCA, 97737-9, CMP #### [facility] ([id number]) [address] [place] [address] BRAIN WO CONTon CT BRAIN WO [...] on 08/13/2023 3:51 AM Normal [facility] DRUG SCREEN, URINEon 024 AMPHETAMINE/METHAMP Negative Normal NEG [facility] Comment on above: Result Comment: AMPH /METH screening cut off = 1000 ng/mL Performed By: #### C BCA, BMP #### [facility] ([id number]) [address] [place] [address] BARBITURATES Negative Normal NEG [facility] Comment on above: Result Comment: Lou iturates screening cut off value = 200 ng/mL Performed By: #### C BCA, BMP #### [facility] ([id number]) [address] [place] [address] 53780 BENZODIAZEPINES Positive Abnormal NEG [facility] Comment on above: Result Comment: Conf irmation available upon request. Benzodiazepines screening cut off value = 200 ng/mL Performed By: #### C BCA, BMP #### [facility] ([id number]) [address] [place], [place] [address] CANNABINOIDS Positive Abnormal NEG [facility] Comment on above: Result Comment: Conf irmation available upon request. Cannabinoids/THC screening cut off value = 50 ng/mL Performed By: #### C BCA, BMP #### [facility] ([id number]) [address] [place] [address] 94229 COCAINE METABOLITE Negative Normal NEG [facility] Comment on above: Result Comment: Coca ine screening cut off value = 300 ng/mL Performed By: #### C BCA, BMP #### [facility] ([id number]) [address] [place] [address] 75116 ECSTASY Negative Normal NEG [facility] Comment on above: Result Comment: Ecst asy screening cut off value = 500 ng/mL This report is intended for use in clinical monitoring or management of patients. Performed By: #### C JALIL, BMP #### [facility] ([id number]) [address] [place] [address] 53347 METHADONE Negative Normal NEG [facility] Comment on above: Result Comment: Meth adone screening cut off value = 300 ng/mL. Performed By: #### C JALIL, BMP #### [facility] ([id number]) [address] [place] [address] 56786 OPIATES Negative [facility] Comment on above: Result Comment: Opia andrés screening cut off value = 300 ng/mL NOTE: This test is used for the detection of codeine, hydrocodone (>1000 ng/mL), morphine and hydromorphone (>900 ng/mL) in urine. Performed By: #### C JALIL, BMP #### [facility] ([id number]) [address] [place] [address] 73225 OXYCODONE Negative Normal [facility] Comment on above: Result Comment: Oxyc odone screening cut off value = 300 ng/mL NOTE: This test is used for the detection of oxycodone and oxymorphone in urine. Performed By: #### C JALIL, BMP #### [facility] ([id number]) [address] [place] [address] 81588 PHENCYCLIDINE Negative Normal [facility] Comment on above: Result Comment: Phen cyclidine screening cut off value = 25 ng/mL Performed By: #### C JALIL, BMP #### [facility] ([id number]) [address] [place] [address] 57173 Glucose Glucometer (BldC) [M ass/Vol]on 01-14-2024 Glucose [Mass/Vol] 85 mg/dL Normal 65-99 [facility] Lactate (P juve) [Moles/Vol]o n 08-13-2023 LACTATE W/REFLEX 1.4 mmol/L Normal 0.4-2.0 [facility] Comment on above: Result Comment: Result did not trigger repeat Lactate, re-order if needed. Performed By: #### 1 0839-9, 39933-7, CBCA, 90961-4, CMP #### [facility] ([id number]) [address] [place] [address] 93793 MAGNESIUMon 08-13-2023 Magnesium [Mass/Vol] 2.0 mg/dL Normal 1.8-2.6 [facility] Comment on above: Performed By: #### 1 0839-9, 33147-8, CBCA, 37059-3, CMP #### [facility] ([id number]) [address] [place] [address] 83541 PLATELET COUNT AND MPVon Platelet mean volume (Bld) [Entitic vol] 8.2 fL Normal 7-12 [facility] Comment on above: Performed By: #### C JALIL, BMP #### [facility] ([id number]) [address] [place] [address] 07745 Platelets (Bld) [#/Vol] 322 10*3/uL Normal 150-450 [facility] Comment on above: Performed By: #### C JALIL, BMP #### [facility] ([id number]) [address] [place] [address] 22119 Prolactin [Mass/Vol]on 08-13 PROLACTIN 11.4 ng/mL Normal 2.6-13.1 [facility] Comment on above: Performed By: #### C BCA, BMP #### [facility] ([id number]) [address] [place] [address] 48252 TROPONIN Ion 08-13-2023 Troponin I.cardiac [Mass/Vol] ng/mL Normal 0.00-0.04 [facility] Comment on above: Performed By: #### 1 0839-9, 52538-3, CBCA, 30721-5, CMP #### [facility] ([id number]) [address] [place] [address] 13996 URN MACROSCOPIC NURon 2023 BILIRUBIN JAS Negative Normal NEG [facility] Comment on above: Performed By: #### N UM #### [facility] ([id number]) [address] [place] [address] BLOOD/HGB JAS Negative Normal NEG [facility] Comment on above: Performed By: #### N UM #### [facility] ([id number]) [address] [place] [address] [place] [address] GLUCOSE JAS Negative Normal NEG [facility] Comment on above: Performed By: #### N UM #### [facility] ([id number]) [address] [place] [address] [place] [address] KETONES JAS Negative Normal NEG [facility] Comment on above: Performed By: #### N UM #### [facility] ([id number]) [address] [place] [address] [place] [address] LEUKOCYTE ESTERASE JAS Negative Normal NEG [facility] Comment on above: Performed By: #### N UM #### [facility] ([id number]) [address] [place] [address] [place] [address] NITRITE JAS Negative Normal NEG [facility] Comment on above: Performed By: #### N UM #### [facility] ([id number]) [address] [place] [address] [place] [address] PH JAS 7.5 Normal 5.0-8.5 [facility] Comment on above: Performed By: #### N UM #### [facility] ([id number]) [address] [place] [address] PROTEIN JAS Negative Normal NEG [facility] Comment on above: Performed By: #### N UM #### [facility] ([id number]) [address] [place] [address] SPECIFIC GRAVITY JAS 1.015 Normal 1.003-1.035 [facility] Comment on above: Performed By: #### N UM #### [facility] ([id number]) [address] [place] [address] UROBILINOGEN JAS 0.2 eu/dL Normal <1.1 [facility] Comment on above: Performed By: #### N UM #### [facility] ([id number]) [address] [place] [address] XR CHEST 1 VWon 08-13-2023 XR CHEST [...] on 08/13/2023 1:55 AM Normal [facility] BASIC METABOLIC PANLon 08-07 Anion gap [Moles/Vol] 7 mmol/L Normal 5-15 [facility] Comment on above: Performed By: #### C BCA, BMP #### [facility] ([id number]) [address] [place] [address] Calcium [Mass/Vol] 9.3 mg/dL Normal 8.5-10.5 [facility] Comment on above: Performed By: #### C BCA, BMP #### [facility] ([id number]) [address] [place] [address] Chloride [Moles/Vol] 102 mmol/L Normal 98-109 [facility] Comment on above: Performed By: #### C JALIL, BMP #### [facility] ([id number]) [address] [place] [address] CO2 [Moles/Vol] 25 mmol/L Normal 22-32 [facility] Comment on above: Performed By: #### C JALIL, BMP #### [facility] ([id number]) [address] [place] [address] Creatinine [Mass/Vol] 1.04 mg/dL Normal 0.70-1.20 [facility] Comment on above: Result Comment: METH OD TRACEABLE TO IDMS STANDARD Performed By: #### C JALIL, BMP #### [facility] ([id number]) [address] [place] [address] GFR/1.73 sq M.predicted among non-blacks MDRD (S/P/Bld) [Vol rate/Area] 89 mL/min/{1.73_m2} Normal >59 [facility] Comment on above: Result Comment: Reported eGFR is based on the CKD-EPI 2020 equation that does not use a race coefficient. Performed By: #### C JALIL, BMP #### [facility] ([id number]) [address] [place] [address] Glucose [Mass/Vol] 98 mg/dL Normal 65-99 [facility] Comment on above: Performed By: #### C JALIL, BMP #### [facility] ([id number]) [address] [place] [address] Potassium [Moles/Vol] 4.0 mmol/L Normal 3.5-5.0 [facility] Comment on above: Performed By: #### C JALIL, BMP #### [facility] ([id number]) [address] [place] [address] Sodium [Moles/Vol] 134 mmol/L Normal 134-146 [facility] Comment on above: Performed By: #### C JALIL, BMP #### [facility] ([id number]) [address] [place] [address] Urea nitrogen [Mass/Vol] 18 mg/dL Normal 5-23 [facility] Comment on above: Performed By: #### C JALIL, BMP #### [facility] ([id number]) [address] [place] [address] CBC AND AUTO DIFFon 08-07-19 24 ABSOLUTE BASOPHIL 0.1 X10E9/L Normal 0.0-0.2 [facility] Comment on above: Performed By: #### C JALIL, BMP #### [facility] ([id number]) [address] [place] [address] ABSOLUTE NEUTROPHIL 7.5 X10E9/L High 1.5-6.6 [facility] Comment on above: Performed By: #### C JALIL, BMP #### [facility] ([id number]) [address] [place] [address] Basophils/100 WBC (Bld) 1.1 % Normal [facility] Comment on above: Performed By: #### C JALIL, BMP #### [facility] ([id number]) [address] [place] [address] Eosinophils (Bld) [#/Vol] 0.1 10*3/uL Normal 0.0-0.4 [facility] Comment on above: Performed By: #### C JALIL, BMP #### [facility] ([id number]) [address] [place] [address]27[address] Eosinophils/100 WBC (Bld) 0.6 % Normal [facility] Comment on above: Performed By: #### C JALIL, BMP #### [facility] ([id number]) [address] [place] [address] Erythrocyte distribution width (RBC) [Ratio] 14.5 % Normal 11.5-15.0 [facility] Comment on above: Performed By: #### C JALIL, BMP #### [facility] ([id number]) [address] [place] [address] Hematocrit (Bld) [Volume fraction] 42.1 % Normal 39-49 [facility] Comment on above: Performed By: #### C JALIL, BMP #### [facility] ([id number]) [address] [place] [address] Hemoglobin (Bld) [Mass/Vol] 14.7 g/dL Normal 13.0-17.0 [facility] Comment on above: Performed By: #### C JALIL, BMP #### [facility] ([id number]) [address] [place] [address] 78778 Lymphocytes (Bld) [#/Vol] 1.3 10*3/uL Normal 1.0-3.5 [facility] Comment on above: Performed By: #### C JALIL, BMP #### [facility] ([id number]) [address] [place] [address] 93964 Lymphocytes/100 WBC (Bld) 13.6 % Normal [facility] Comment on above: Performed By: #### C JALIL, BMP #### [facility] ([id number]) [address] [place] [address] 99[address] MCH (RBC) [Entitic mass] 31.1 pg Normal 27-34 [facility] Comment on above: Performed By: #### C BCA, BMP #### [facility] ([id number]) [address] [place] [address] MCHC (RBC) [Mass/Vol] 34.9 g/dL Normal 32-36 [facility] Comment on above: Performed By: #### C BCA, BMP #### [facility] ([id number]) [address] [place] [address] 22644 MCV (RBC) [Entitic vol] 89 fL Normal 80-100 [facility] Comment on above: Performed By: #### C JALIL, BMP #### [facility] ([id number]) [address] [place] [address] 03886 Monocytes (Bld) [#/Vol] 0.7 10*3/uL Normal 0-0.9 [facility] Comment on above: Performed By: #### C JALIL, BMP #### [facility] ([id number]) [address] [place] [address] 94698 Monocytes/100 WBC (Bld) 6.9 % Normal [facility] Comment on above: Performed By: #### C JALIL, BMP #### [facility] ([id number]) [address] [place] [address] 82286 Neutrophils/100 WBC (Bld) 77.8 % Normal [facility] Comment on above: Performed By: #### C JALIL, BMP #### [facility] ([id number]) [address] [place] [address] 11511 Platelet mean volume (Bld) [Entitic vol] 7.6 fL Normal 7-12 [facility] Comment on above: Performed By: #### C JALIL, BMP #### [facility] ([id number]) [address] [place] [address] 11172 Platelets (Bld) [#/Vol] 369 10*3/uL Normal 150-450 [facility] Comment on above: Performed By: #### C JALIL, BMP #### [facility] ([id number]) [address] [place] [address] 70792 RBC COUNT 4.73 X10E12/L Normal 4.10-5.70 [facility] Comment on above: Performed By: #### C JALIL, BMP #### [facility] ([id number]) [address] [facility], [place] [address] WBC (Bld) [#/Vol] 9.6 10*3/uL Normal 4.0-11.0 [facility] Comment on above: Performed By: #### C BCA, BMP #### [facility] ([id number]) [address] [place] [address] BRAIN WO CONTon 4 CT BRAIN [...] on 08/07/2023 6:27 PM Normal [facility] XR WRIST LT MIN 3 Von 2022 XR WRIST LT MIN 3 V EXAM: XR WRIST LT MD N 3 V HISTORY: Wrist pain COMPARISON: None. TECHNIQUE: 3 views FINDINGS: No osseous lesion, fracture, dislocation or subluxation. Joint spaces are normal. No visualized effusion. No visualized soft tissue edema. IMPRESSION: Normal x-rays Electronically authenticated by: NONI MOISE Date: 2022-11-16 20:44 Normal [facility] CBC AUTO DIFFon 05-26-2022 BASO # 0.1 103/ul Normal 0.0-0.1 [facility] Comment on above: Performed By: #### C BC #### [facility] [address] [place], [place] [address] Dr. Liudmila Edmondson Basophils/100 WBC (Bld) 1.2 % Normal 0.2-2.0 [facility] Comment on above: Performed By: #### C BC #### [facility] [address] [place], [place] [address] Dr. Liudmila Edmondson EO # 0.4 103/ul Normal 0.0-0.7 [facility] Comment on above: Performed By: #### C BC #### [facility] [address] [place] [address] Dr. Liudmila Edmondson Eosinophils/100 WBC (Bld) 4.3 % Normal 0.9-7.0 [facility] Comment on above: Performed By: #### C BC #### [facility] [address] [place] [address] Dr. Liudmila Edmondson Erythrocyte distribution width (RBC) [Ratio] 13.4 % Normal 11.0-15.0 [facility] Comment on above: Performed By: #### C BC #### [facility] [address] [place] [address] Dr. Liudmila Edmondson Hematocrit (Bld) [Volume fraction] 42.4 % Normal 42.0-54.0 [facility] Comment on above: Performed By: #### C BC #### [facility] [address] [place] [address] Dr. Liudmila Edmondson Hemoglobin (Bld) [Mass/Vol] 15.1 g/dL Normal 14.0-18.0 [facility] Comment on above: Performed By: #### C BC #### [facility] [address] [place] [address] Dr. Liudmila Edmondson IG # 0.02 10e3/ul Normal 0.00-0.03 [facility] Comment on above: Performed By: #### C BC #### [facility] [address] [place] [address] Dr. Liudmila Edmondson IG % 0.2 % Normal 0.0-0.5 [facility] Comment on above: Performed By: #### C BC #### [facility] [address] [place] [address] Dr. Liudmila Edmondson LYMPH # 2.4 103/ul Normal 1.2-3.8 [facility] Comment on above: Performed By: #### C BC #### [facility] [address] [place] [address] Dr. Liudmila Edmondson Lymphocytes/100 WBC (Bld) 24.6 % Normal 20.5-60.0 [facility] Comment on above: Performed By: #### C BC #### [facility] [address] [place] [address] Dr. Liudmila Edmondson MANUAL DIFF REQ NO Normal [facility] Comment on above: Performed By: #### C BC #### [facility] [address] [place] [address] Dr. Liudmila Edmondson MCH (RBC) [Entitic mass] 30.7 pg Normal 25.9-34.0 [facility] Comment on above: Performed By: #### C BC #### [facility] [address] [place] [address] Dr. Liudmila Edmondson MCHC (RBC) [Mass/Vol] 35.6 g/dL Critically high 29.9-35.2 [facility] Comment on above: Performed By: #### C BC #### [facility] [address] [place] [address] Dr. Liudmila Edmondson MCV (RBC) [Entitic vol] 86.2 fL Normal 80.0-94.0 [facility] Comment on above: Performed By: #### C BC #### [facility] [address] [place] [address] Dr. Liudmila Edmondson MONO # 0.7 103/ul Normal 0.3-0.8 [facility] Comment on above: Performed By: #### C BC #### [facility] [address] [place] [address] Dr. Liudmila Edmondson Monocytes/100 WBC (Bld) 7.1 % Normal 1.7-12.0 [facility] Comment on above: Performed By: #### C BC #### [facility] [address] [place] [address] Dr. Liudmila Edmondson NEUT # 6.0 103/ul Normal 1.4-6.5 [facility] Comment on above: Performed By: #### C BC #### [facility] [address] [place] [address] Dr. Liudmila Edmondson Neutrophils/100 WBC (Bld) 62.6 % Normal 43.0-75.0 [facility] Comment on above: Performed By: #### C BC #### [facility] [address] [place] [address] Dr. Liudmila Edmondson Platelet mean volume (Bld) [Entitic vol] 9.4 fL Critically low 9.5-13.5 [facility] Comment on above: Performed By: #### C BC #### [facility] [address] [place] [address] Dr. Liudmila Edmondson PLT 328 103/ul Normal 150-450 [facility] Comment on above: Performed By: #### C BC #### [facility] [address] [place] [address] Dr. Liudmila Edmondson RBC 4.92 106/ul Normal 4.70-6.10 [facility] Comment on above: Performed By: #### C BC #### [facility] [address] [place] [address] Dr. Liudmila Edmondson WBC 9.7 103/ul Normal 4.0-11.0 [facility] Comment on above: Performed By: #### C BC #### [facility] [address] [place] [address] Dr. Liudmila Edmondson CRPon 05-26-2022 CRP [Mass/Vol] mg/L Critically high <=1.0 [facility] Comment on above: Performed By: #### C RP, BMP #### [facility] [address] [place] [address] Dr. Liudmila Edmondson PROF CHEM 8 (BAS METB)on Anion gap [Moles/Vol] 9.0 mmol/L Normal [facility] Comment on above: Performed By: #### C RP, BMP #### [facility] [address] [place] [address] Dr. Liudmila Edmondson Calcium [Mass/Vol] 8.8 mg/dL Normal 8.5-10.1 [facility] Comment on above: Performed By: #### C RP, BMP #### [facility] [address] [place] [address] Dr. Liudmila Edmondson Chloride [Moles/Vol] 105 mmol/L Normal 98-107 [facility] Comment on above: Performed By: #### C RP, BMP #### [facility] [address] [place] [address] [address] Liudmila Edmondson CO2 [Moles/Vol] 27.8 mmol/L Normal 21.0-32.0 [facility] Comment on above: Performed By: #### C RP, BMP #### [facility] [address] [place] [address] [address] Liudmila Edmondson Creatinine [Mass/Vol] 0.99 mg/dL Normal 0.70-1.30 [facility] Comment on above: Performed By: #### C RP, BMP #### [facility] [address] [place] [address] [address] Liudmila Edmondson EGFR-AF TURKMEN >60 Normal >=60 [facility] Comment on above: Performed By: #### C RP, BMP #### [facility] [address] [place] [address] Dr. Liudmila Edmondson EGFR-NON AF TURKMEN >60 Normal >=60 [facility] Comment on above: Performed By: #### C RP, BMP #### [facility] [address] [place] [address] [address] Liudmila Edmondson Glucose [Mass/Vol] 135 mg/dL Critically high 74-106 [facility] Comment on above: Performed By: #### C RP, BMP #### [facility] [address] [place] [address] [address] Liudmila Edmondson Potassium [Moles/Vol] 3.8 mmol/L Normal 3.5-5.1 [facility] Comment on above: Performed By: #### C RP, BMP #### [facility] [address] [place] [address] [address] Liudmila Edmondson Sodium [Moles/Vol] 138 mmol/L Normal 136-145 [facility] Comment on above: Performed By: #### C RP, BMP #### [facility] [address] [place] [address] [address] Liudmila Edmondson Urea nitrogen [Mass/Vol] 23.0 mg/dL Critically high 7.0-18.0 [facility] Comment on above: Performed By: #### C RP, BMP #### [facility] [address] [place] [address] [address] Liudmila Edmondson Urea nitrogen/Creatinine [Mass ratio] 23.2 mg/mg Normal [facility] Comment on above: Performed By: #### C RP, BMP #### [facility] [address] [place] [address] [address] Liudmila Edmondson SED RATE [facility] 2021 SED RATE 43 mm/hr Critically high <=15 [facility] Comment on above: Performed By: #### S EDR #### [facility] [address] [place] [address] [address] Liudmila Edmondson Encounters Encounter Date Encounter Type Care Provider Facility Start: 08-14-2023 End: 08-15-2023 ambulatory [facility] Start: 08-13-2023 End: 08-15-2023 Emergency department patient visit [facility] Start: 08-13-2023 End: 08-15-2023 Emergency department patient visit [facility] Start: 08-13-2023 End: 08-14-2023 ambulatory NO PCP NO PCP [facility] Start: 08-07-2023 End: 08-08-2023 Emergency department patient visit [facility] Start: 08-07-2023 End: 08-07-2023 Emergency department patient visit [facility] Start: 06-01-2023 ambulatory Barak Engel acility:[facility] Start: 11-16-2022 End: 11-16-[address] [...] Facility:[facility] Payers Date Payer Category Payer Unknown [id number] 2023 Self-pay 1975 Unknown [id number] 2.16.84 [id number] 1975 Unknown [id number] 2.16.84 [id number] 1975 Unknown [id number] 2.16.84 0.1.587256.3.579.2.593 1975 Unknown [id number] 2.16.84 0.1.949409.3.579.2.593 1975 Unknown [id number] 2.16.84 0.1.149616.3.579.2.593 1975 Unknown [id number] 2.16.84 0.1.299153.3.579.2.593 1975 Unknown [id number] 2.16.84 0.1.774141.3.579.2.1286 1975 Unknown [id number] 2.16.84 0.1.929090.3.579.2.1286 1959 Medicaid [id number] 1959 Self-pay [id number] Unknown [id number] 2.16.84 0.1.131576.3.579.2.1286 Unknown [id number] 2.16.84 0.1.493088.3.579.2.1286 Unknown [id number] 2.16.84 0.1.957277.3.579.2.1286 Unknown [id number] 2.16.84 0.1.989372.3.579.2.1286 Unknown [id number] 2.16.84 0.1.271085.3.579.2.1286 Summary Purpose Family History No Family History Records FoundNo Family History Records FoundNo Family History Records Found Advance Directives No Advanced Directives Records FoundNo Advanced Directives Records FoundNo Advanced Directives Records Found Additional Source Comments (unrecognized sect ion and content) No Status Records FoundNo Status Records FoundNo Status Records Found INFORMATION SOURCE (unrecogn ized section and content) DATE CREATED AUTHOR 11/19/2022 [facility] DATE CREATED AUTHOR AUTHOR'S ORGANIZ ATION 08/17/2023 [facility] DATE CREATED AUTHOR AUTHOR'S ORGANIZ ATION 09/01/2023 [facility] FOR RECORDS PERTAINING TO PATIENTS WHO ARE [...] BE BASED ON THE PRIMARY CLINICAL RECORDS. [facility] [employer] provides no warranty or guarantee of the accuracy or completeness of information in this document.
[2023-09-08] MEDS: LEVETIRACETAM 1,000 MG in 0.9 % SODIUM CHLORIDE 100 ML 440 MG IV (18:25)
[2023-09-08 18:27] LABS: Basophils Absolute Auto 0.1 10^3/uL (0.0-0.1); Eosinophils Absolute Auto 0.1 10^3/uL (0.0-0.7); Hemoglobin 14.3 g/dL (14.0-18.0); Immature Granulocytes Abs Auto 0.03 10^3/uL (0.00-0.03); Immature Granulocytes Pct Auto 0.3 % (0.0-0.5); Lymphocytes Absolute Auto 2.7 10^3/uL (1.2-3.8); Lymphocytes Percent Auto 25.9 % (20.5-60.0); Mean Corpuscular HGB Conc 33.3 g/dL (29.9-35.2); Mean Corpuscular Hemoglobin 30.6 pg (25.9-34.0); Mean Corpuscular Volume 91.9 fL (80.0-94.0); Mean Platelet Volume 9.5 fL (9.5-13.5); Monocytes Percent Auto 9.5 % (1.7-12.0); Neutrophils Absolute Auto 6.5 10^3/uL (1.4-6.5); Neutrophils Percent Auto 62.3 % (43.0-75.0); Platelet Count 334 10^3/uL (150-450); Red Blood Count 4.68 10^6/uL (4.70-6.10); Red Cell Distribution Width 13.9 % (11.0-15.0); White Blood Count 10.5 10^3/uL (4.0-11.0)
[2023-09-08 18:47] LABS: Alanine Aminotransferase 20 U/L (16-63); Albumin Globulin Ratio 0.9; Albumin Level 3.9 g/dL (3.4-5.0); Alkaline Phosphatase 73 U/L (46-116); Anion Gap 15.6; Aspartate Amino Transferase 19 U/L (15-37); BUN Creatinine Ratio 18.6; Bilirubin Total 0.5 mg/dL (0.2-1.0); Calcium 9.1 mg/dL (8.5-10.1); Carbon Dioxide 25.9 mmol/L (21.0-32.0); Chloride 103 mmol/L (98-107); Estimated GFR (African America >60 (>=60); Estimated GFR (Non-African Ame >60 (>=60); Globulin 4.5 g/dL; Glucose 78 mg/dL (74-106); Potassium 3.5 mmol/L (3.5-5.1); Sodium 141 mmol/L (136-145); Total Protein 8.4 g/dL (6.4-8.2)
[2023-09-08 18:54] LABS: Troponin I High Sensitivity 5.5 pg/mL (4.0-76.1)
[2023-09-08 19:18] VITALS: BP 123/82; PULSE 66; RESP 16; O2SAT 95
[2023-09-08 20:07] LABS: Amphetamine Screen Urine NEGATIVE (NEGATIVE); Barbiturates Screen Urine NEGATIVE (NEGATIVE); Benzodiazepines Screen Urine POSITIVE (NEGATIVE); Buprenorphine Screen Urine NEGATIVE (NEGATIVE); Cannabinoid Screen Urine POSITIVE (NEGATIVE); Cocaine Screen Urine NEGATIVE (NEGATIVE); Methadone Screen Urine NEGATIVE (NEGATIVE); Methamphetamines Screen Urine NEGATIVE (NEGATIVE); Opiate Screen Urine NEGATIVE (NEGATIVE); Oxycodone Screen Urine NEGATIVE (NEGATIVE); Phencyclidine Screen Urine NEGATIVE (NEGATIVE); Tricyclic Antidepressant Urine NEGATIVE (NEGATIVE)
== END 2023-09-08 20:21 | disposition home or self-care (01) ==
PROVIDERS: Emergency Medicine; Physician Assistant; Emergency Provider Emergency Medicine
DX: G40.909 Epilepsy, unspecified, not intractable, without status epilepticus (principal); J44.9 Chronic obstructive pulmonary disease, unspecified; N40.0 Benign prostatic hyperplasia without lower urinary tract symptoms; Z90.49 Acquired absence of other specified parts of digestive tract; F17.210 Nicotine dependence, cigarettes, uncomplicated; Z79.899 Other long term (current) drug therapy
CPT/HCPCS: 36415; 71045; 80053; 80307; 83690; 83880; 84484; 85025; 93005; 96365; 96375; 99285; J1953; J2405

== ENCOUNTER 2023-09-10 22:20 | Emergency (ER) | payer MEDICAID, SELFPAY ==
[2023-09-10] VITALS (7 sets, daily range): BP systolic 115–131; BP diastolic 72–77; PULSE 95; RESP 17; TEMP 37.4; O2SAT 95–99; BMI 20.4
--- OUTSIDE RECORDS SUMMARY | 2023-09-10 22:25 | XMS_ITS | CCD ---
Author Name Unknown Address [address] [place] [address] [address] [place] [address] Organization [facility] Care Team Providers Care Box Feeder Name Role Phone REQUEST, NONE LISTED Primary [...] Care Unavailable SAM FIGUEROA Attending Unavailable SAM FIGUREOA Referring Unavailable NO PCP, NO PCP Primary Care Unavailable NO PCP, NO PCP Primary Care Unavailable RON FOFNAA E. Attending Unavailable RONEY CHRISTENSEN Admitting Unavailable [...] Containting Drugs) Drug allergy (disorder) 02-17-2022 [facility] (1 source) Shellfish Drug allergy (disorder) 02-17-2022 [facility] (1 source) Povidone-Iodine; Translations: [POVIDONE-IODINE ] [...] 08-13-2023 Episodic Other aftercare (1 source) Other long term care pharmacist (current) drug therapy; Translations: [OTH [facility] CURRENT DRUG THERAPY] Onset: 08-29-2022 Episodic Other [...] 08-14-19 ABSOLUTE BASOPHIL 0.1 X10E9/L Normal 0.0-0.2 [facility] Comment on above: Performed By: #### C JALIL, BMP #### [facility] ([id number]) [address] [place] [address] 36195 ABSOLUTE NEUTROPHIL 4.6 X10E9/L Normal 1.5-6.6 [facility] Comment on above: Performed By: #### C BCA, BMP #### [facility] ([id number]) [address] [place] [address] 80874 Basophils/100 WBC (Bld) 1.2 % Normal [facility] Comment on above: Performed By: #### C JALIL, BMP #### [facility] ([id number]) [address] [place] [address] 73839 Eosinophils (Bld) [#/Vol] 0.1 10*3/uL Normal 0.0-0.4 [facility] Comment on above: Performed By: #### C JALIL, BMP #### [facility] ([id number]) [address] [place] [address] 91325 Eosinophils/100 WBC (Bld) 1.7 % Normal [facility] Comment on above: Performed By: #### C JALIL, BMP #### [facility] ([id number]) [address] [place] [address] 36947 Erythrocyte distribution width (RBC) [Ratio] 14.4 % Normal 11.5-15.0 [facility] Comment on above: Performed By: #### C JALIL, BMP #### [facility] ([id number]) [address] [place] [address] 14367 Hematocrit (Bld) [Volume fraction] 46.6 % Normal 39-49 [facility] Comment on above: Performed By: #### C JALIL, BMP #### [facility] ([id number]) [address] [place] [address] 89775 Hemoglobin (Bld) [Mass/Vol] 15.9 g/dL Normal 13.0-17.0 [facility] Comment on above: Performed By: #### C JALIL, BMP #### [facility] ([id number]) [address] [place] [address] 35412 Lymphocytes (Bld) [#/Vol] 2.9 10*3/uL Normal 1.0-3.5 [facility] Comment on above: Performed By: #### C JALIL, BMP #### [facility] ([id number]) [address] [place] [address] Lymphocytes/100 WBC (Bld) 33.3 % Normal [facility] Comment on above: Performed By: #### C JALIL, BMP #### [facility] ([id number]) [address] [place] [address] 28384 MCH (RBC) [Entitic mass] 30.7 pg Normal 27-34 [facility] Comment on above: Performed By: #### C JALIL, BMP #### [facility] ([id number]) [address] [place] [address] 91575 MCHC (RBC) [Mass/Vol] 34.0 g/dL Normal 32-36 [facility] Comment on above: Performed By: #### C JALIL, BMP #### [facility] ([id number]) [address] [place] [address] 45062 MCV (RBC) [Entitic vol] 90 fL Normal 80-100 [facility] Comment on above: Performed By: #### C JALIL, BMP #### [facility] ([id number]) [address] [place] [address] 26765 Monocytes (Bld) [#/Vol] 0.8 10*3/uL Normal 0-0.9 [facility] Comment on above: Performed By: #### C JALIL, BMP #### [facility] ([id number]) [address] [place] [address] 21616 Monocytes/100 WBC (Bld) 9.7 % Normal [facility] Comment on above: Performed By: #### C JALIL, BMP #### [facility] ([id number]) [address] [place] [address] 14298 Neutrophils/100 WBC (Bld) 54.1 % Normal [facility] Comment on above: Performed By: #### C JALIL, BMP #### [facility] ([id number]) [address] [place] [address] Platelet mean volume (Bld) [Entitic vol] 8.5 fL Normal 7-12 [facility] Comment on above: Performed By: #### C JALIL, BMP #### [facility] ([id number]) [address] [place] [address] 61053 Platelets (Bld) [#/Vol] 360 10*3/uL Normal 150-450 [facility] Comment on above: Performed By: #### C JALIL, BMP #### [facility] ([id number]) [address] [place] [address] 53083 RBC COUNT 5.17 X10E12/L Normal 4.10-5.70 [facility] Comment on above: Performed By: #### C JALIL, BMP #### [facility] ([id number]) [address] [place] [address] 61686 WBC (Bld) [#/Vol] 8.6 10*3/uL Normal 4.0-11.0 [facility] Comment on above: Performed By: #### C JALIL, BMP #### [facility] ([id number]) [address] [place] [address] 65989 COMPREHENSIVE METABOLIC PANE Sheldon 08-14-2023 Albumin [Mass/Vol] 4.0 g/dL Normal 3.2-5.3 [facility] Comment on above: Performed By: #### C JALIL, BMP #### [facility] ([id number]) [address] [place] [address] 90783 ALP [Catalytic activity/Vol] 78 U/L Normal 39-130 [facility] Comment on above: Performed By: #### C JALIL, BMP #### [facility] ([id number]) [address] [place] [address] 88663 ALT [Catalytic activity/Vol] 14 U/L Normal 0-40 [facility] Comment on above: Performed By: #### C BCA, BMP #### [facility] ([id number]) [address] [place] [address] 15052 Anion gap [Moles/Vol] 10 mmol/L Normal 5-15 [facility] Comment on above: Performed By: #### C BCA, BMP #### [facility] ([id number]) [address] [place] [address] 83242 AST [Catalytic activity/Vol] 19 U/L Normal 0-41 [facility] Comment on above: Performed By: #### C BCA, BMP #### [facility] ([id number]) [address] [place] [address] 02062 Bilirubin [Mass/Vol] 0.6 mg/dL Normal 0.3-1.2 [facility] Comment on above: Performed By: #### C BCA, BMP #### [facility] ([id number]) [address] [place] [address] 69092 Calcium [Mass/Vol] 9.0 mg/dL Normal 8.5-10.5 [facility] Comment on above: Performed By: #### C BCA, BMP #### [facility] ([id number]) [address] [place] [address] 88055 Chloride [Moles/Vol] 102 mmol/L Normal 98-109 [facility] Comment on above: Performed By: #### C BCA, BMP #### [facility] ([id number]) [address] [place] [address] 35335 CO2 [Moles/Vol] 24 mmol/L Normal 22-32 [facility] Comment on above: Performed By: #### C BCA, BMP #### [facility] ([id number]) [address] [place] [address] [place] [address] Creatinine [Mass/Vol] 1.12 mg/dL Normal 0.70-1.20 [facility] Comment on above: Result Comment: METH OD TRACEABLE TO IDMS STANDARD Performed By: #### C BCA, BMP #### [facility] ([id number]) [address] [place] [address] 36987 GFR/1.73 sq M.predicted among non-blacks MDRD (S/P/Bld) [Vol rate/Area] 81 mL/min/{1.73_m2} Normal >59 [facility] Comment on above: Result Comment: Reported eGFR is based on the CKD-EPI 2020 equation that does not use a race coefficient. Performed By: #### C BCA, BMP #### [facility] ([id number]) [address] [place] [address] 05775 Glucose [Mass/Vol] 101 mg/dL High 65-99 [facility] Comment on above: Performed By: #### C BCA, BMP #### [facility] ([id number]) [address] [place] [address] 14707 Potassium [Moles/Vol] 4.0 mmol/L Normal 3.5-5.0 [facility] Comment on above: Performed By: #### C BCA, BMP #### [facility] ([id number]) [address] [place] [address] 19381 Protein [Mass/Vol] 7.7 g/dL Normal 6.0-8.0 [facility] Comment on above: Performed By: #### C BCA, BMP #### [facility] ([id number]) [address] [place] [address] 85740 Sodium [Moles/Vol] 136 mmol/L Normal 134-146 [facility] Comment on above: Performed By: #### C BCA, BMP #### [facility] ([id number]) [address] [place] [address] 73079 Urea nitrogen [Mass/Vol] 18 mg/dL Normal 5-23 [facility] Comment on above: Performed By: #### C BCA, BMP #### [facility] ([id number]) [address] [facility] [place] [address] XR CHEST 1 VWon 08-14-2023 XR CHEST 1 VW XR CHEST 1 VW Clinical history: Seizure disorder Views: 1 Comparison: 08/13/2023 Findings/Impression: 1. No acute infiltrate. No volume loss nor consolidation. There is no pleural effusion, pneumothorax, nor volume loss. Heart and mediastinal structures are unremarkable. Pulmonary vasculature stable. 2. No significant change Finalized by Ayush Naranjo MD on 08/14/2023 6:22 AM Normal [facility] levETIRAcetam [Mass/Vol]on 0 08-14-2023 LEVETIRACETAM See Below Normal [facility] Comment on above: Result Comment: NOTE [...] developed and its performance characteristics determined by [facility] [place] ([facility]). It has not been cleared or approved by the FDA. -[facility] is regulated under CLIA as qualified to perform high-complexity testing. This test is used for clinical purposes. It should not be regarded as investigational or for research. Test Performed By: [facility] [employer] [address] [place] [address] Mold Maker Plaster: Lamont Craft III, M.D. CLIA #[id number] Performed By: #### C BCA, BMP #### [facility] ([id number]) [address] [place] [address] 03652 CBC AND AUTO DIFFon 08-13-19 24 ABSOLUTE BASOPHIL 0.1 X10E9/L Normal 0.0-0.2 [facility] Comment on above: Performed By: #### 1 39-9, , CBCA, 02798-1, CMP #### [facility] ([id number]) [address] [place] [address] 38910 ABSOLUTE NEUTROPHIL 4.5 X10E9/L Normal 1.5-6.6 [facility] Comment on above: Performed By: #### 1 39-9, , CBCA, 70041-3, CMP #### [facility] ([id number]) [address] [place] [address] 15328 Basophils/100 WBC (Bld) 1.4 % Normal [facility] Comment on above: Performed By: #### 1 399, , CBCA, 30414-5, CMP #### [facility] ([id number]) [address] [place] [address] 67608 Eosinophils (Bld) [#/Vol] 0.1 10*3/uL Normal 0.0-0.4 [facility] Comment on above: Performed By: #### 1 39-9, , CBCA, 95426-1, CMP #### [facility] ([id number]) [address] [place] [address] 22882 Eosinophils/100 WBC (Bld) 1.1 % Normal [facility] Comment on above: Performed By: #### 1 39-9, , CBCA, 48832-0, CMP #### [facility] ([id number]) [address] [place] [address] 97800 Erythrocyte distribution width (RBC) [Ratio] 14.4 % Normal 11.5-15.0 [facility] Comment on above: Performed By: #### 1 9, , CBCA, 16210-9, CMP #### [facility] ([id number]) [address] [place] [address] 53767 Hematocrit (Bld) [Volume fraction] 49.5 % High 39-49 [facility] Comment on above: Performed By: #### 1 9, , CBCA, 21530-7, CMP #### [facility] ([id number]) [address] [place] [address] 02468 Hemoglobin (Bld) [Mass/Vol] 17.3 g/dL High 13.0-17.0 [facility] Comment on above: Performed By: #### 1 9, , CBCA, 17622-4, CMP #### [facility] ([id number]) [address] [place] [address] 69614 Lymphocytes (Bld) [#/Vol] 2.0 10*3/uL Normal 1.0-3.5 [facility] Comment on above: Performed By: #### 1 9, , CBCA, 38150-8, CMP #### [facility] ([id number]) [address] [place] [address] 61571 Lymphocytes/100 WBC (Bld) 27.2 % Normal [facility] Comment on above: Performed By: #### 1 399, , CBCA, 05749-9, CMP #### [facility] ([id number]) [address] [place] [address] 63933 MCH (RBC) [Entitic mass] 31.3 pg Normal 27-34 [facility] Comment on above: Performed By: #### 1 838-9, , CBCA, 48201-7, CMP #### [facility] ([id number]) [address] [place] [address] 11848 MCHC (RBC) [Mass/Vol] 35.0 g/dL Normal 32-36 [facility] Comment on above: Performed By: #### 1 39-9, , CBCA, 21886-4, CMP #### [facility] ([id number]) [address] [place] [address] 95668 MCV (RBC) [Entitic vol] 89 fL Normal 80-100 [facility] Comment on above: Performed By: #### 1 838-9, , CBCA, 95942-6, CMP #### [facility] ([id number]) [address] [place] [address] 54858 Monocytes (Bld) [#/Vol] 0.5 10*3/uL Normal 0-0.9 [facility] Comment on above: Performed By: #### 1 39-9, , CBCA, 33748-1, CMP #### [facility] ([id number]) [address] [place] [address] 07681 Monocytes/100 WBC (Bld) 7.5 % Normal [facility] Comment on above: Performed By: #### 1 39-9, , CBCA, 64660-3, CMP #### [facility] ([id number]) [address] [place] [address] 86414 Neutrophils/100 WBC (Bld) 62.8 % Normal [facility] Comment on above: Performed By: #### 1 39-9, , CBCA, 38364-8, CMP #### [facility] ([id number]) [address] [place] [address] 11910 Platelet mean volume (Bld) [Entitic vol] 8.5 fL Normal 7-12 [facility] Comment on above: Performed By: #### 1 39-9, , CBCA, 80978-0, CMP #### [facility] ([id number]) [address] [place] [address] 64463 Platelets (Bld) [#/Vol] 409 10*3/uL Normal 150-450 [facility] Comment on above: Performed By: #### 1 39-9, , CBCA, 13187-5, CMP #### [facility] ([id number]) [address] [place] [address] 55401 RBC COUNT 5.54 X10E12/L Normal 4.10-5.70 [facility] Comment on above: Performed By: #### 1 39-9, , CBCA, 34195-7, CMP #### [facility] ([id number]) [address] [place] [address] 89414 WBC (Bld) [#/Vol] 7.2 10*3/uL Normal 4.0-11.0 [facility] Comment on above: Performed By: #### 1 39-9, , CBCA, 56851-0, CMP #### [facility] ([id number]) [address] [place] [address] 57014 COMPREHENSIVE METABOLIC PANE Sheldon 08-13-2023 Albumin [Mass/Vol] 5.4 g/dL High 3.2-5.3 [facility] Comment on above: Performed By: #### 1 39-9, 44903-5, CBCA, 28925-8, CMP #### [facility] ([id number]) [address] [place] [address] 08820 ALP [Catalytic activity/Vol] 92 U/L Normal 39-130 [facility] Comment on above: Performed By: #### 1 39-9, 50618-1, CBCA, 28938-1, CMP #### [facility] ([id number]) [address] [place] [address] 44366 ALT [Catalytic activity/Vol] 18 U/L Normal 0-40 [facility] Comment on above: Performed By: #### 1 39-9, 31505-8, CBCA, 23794-5, CMP #### [facility] ([id number]) [address] [place] [address] 77861 Anion gap [Moles/Vol] 10 mmol/L Normal 5-15 [facility] Comment on above: Performed By: #### 1 39-9, , CBCA, 14080-6, CMP #### [facility] ([id number]) [address] [place] [address] 47004 AST [Catalytic activity/Vol] 21 U/L Normal 0-41 [facility] Comment on above: Performed By: #### 1 9, , CBCA, 20515-7, CMP #### [facility] ([id number]) [address] [place] [address] 63183 Bilirubin [Mass/Vol] 0.5 mg/dL Normal 0.3-1.2 [facility] Comment on above: Performed By: #### 1 39-9, , CBCA, 12374-3, CMP #### [facility] ([id number]) [address] [place] [address] 23058 Calcium [Mass/Vol] 9.9 mg/dL Normal 8.5-10.5 [facility] Comment on above: Performed By: #### 1 39-9, , CBCA, 31756-4, CMP #### [facility] ([id number]) [address] [place] [address] 16312 Chloride [Moles/Vol] 101 mmol/L Normal 98-109 [facility] Comment on above: Performed By: #### 1 39-9, , CBCA, 01670-9, CMP #### [facility] ([id number]) [address] [place] [address] 59373 CO2 [Moles/Vol] 25 mmol/L Normal 22-32 [facility] Comment on above: Performed By: #### 1 39-9, , CBCA, 80002-8, CMP #### [facility] ([id number]) [address] [place] [address] 26706 Creatinine [Mass/Vol] 0.98 mg/dL Normal 0.70-1.20 [facility] Comment on above: Result Comment: METH OD TRACEABLE TO IDMS STANDARD Performed By: #### 1 39-9, , CBCA, 95221-3, CMP #### [facility] ([id number]) [address] [place] [address] 32008 eGFR (CKD-EPI) NON-RACE DEPENDENT >90 Normal >59 [facility] Comment on above: Result Comment: Reported eGFR is based on the CKD-EPI 2020 equation that does not use a race coefficient. Performed By: #### 1 39-9, , CBCA, 42800-6, CMP #### [facility] ([id number]) [address] [place] [address] 76193 Glucose [Mass/Vol] 90 mg/dL Normal 65-99 [facility] Comment on above: Performed By: #### 1 39-9, , CBCA, 50538-9, CMP #### [facility] ([id number]) [address] [place] [address] 24727 Potassium [Moles/Vol] 4.2 mmol/L Normal 3.5-5.0 [facility] Comment on above: Performed By: #### 1 39-9, , CBCA, 64369-4, CMP #### [facility] ([id number]) [address] [place] [address] 94328 Protein [Mass/Vol] 9.9 g/dL High 6.0-8.0 [facility] Comment on above: Performed By: #### 1 0839-9, 53409-7, CBCA, 71182-3, CMP #### [facility] ([id number]) [address] [place] [address] 28722 Sodium [Moles/Vol] 136 mmol/L Normal 134-146 [facility] Comment on above: Performed By: #### 1 0839-9, 92014-7, CBCA, 97933-3, CMP #### [facility] ([id number]) [address] [place] [address] 23960 Urea nitrogen [Mass/Vol] 19 mg/dL Normal 5-23 [facility] Comment on above: Performed By: #### 1 0839-9, 64626-3, CBCA, 43901-6, CMP #### [facility] ([id number]) [address] [place] [address] BRAIN WO CONTon CT BRAIN WO [...] Sherman MD on 08/13/2023 3:51 AM Normal [facility] DRUG SCREEN, URINEon 024 AMPHETAMINE/METHAMP Negative Normal NEG [facility] Comment on above: Result Comment: AMPH /METH screening cut off = 1000 ng/mL Performed By: #### C BCA, BMP #### [facility] ([id number]) [address] [place] [address] BARBITURATES Negative Normal NEG [facility] Comment on above: Result Comment: Lou iturates screening cut off value = 200 ng/mL Performed By: #### C BCA, BMP #### [facility] ([id number]) [address] [place] [address] 15359 BENZODIAZEPINES Positive Abnormal NEG [facility] Comment on above: Result Comment: Conf irmation available upon request. Benzodiazepines screening cut off value = 200 ng/mL Performed By: #### C BCA, BMP #### [facility] ([id number]) [address] [place], [place] [address] CANNABINOIDS Positive Abnormal NEG [facility] Comment on above: Result Comment: Conf irmation available upon request. Cannabinoids/THC screening cut off value = 50 ng/mL Performed By: #### C BCA, BMP #### [facility] ([id number]) [address] [place] [address] 64677 COCAINE METABOLITE Negative Normal NEG [facility] Comment on above: Result Comment: Coca ine screening cut off value = 300 ng/mL Performed By: #### C BCA, BMP #### [facility] ([id number]) [address] [place] [address] 92526 ECSTASY Negative Normal NEG [facility] Comment on above: Result Comment: Ecst asy screening cut off value = 500 ng/mL This report is intended for use in clinical monitoring or management of patients. Performed By: #### C JALIL, BMP #### [facility] ([id number]) [address] [place] [address] 11741 METHADONE Negative Normal NEG [facility] Comment on above: Result Comment: Meth adone screening cut off value = 300 ng/mL. Performed By: #### C JALIL, BMP #### [facility] ([id number]) [address] [place] [address] 01613 OPIATES Negative [facility] Comment on above: Result Comment: Opia andrés screening cut off value = 300 ng/mL NOTE: This test is used for the detection of codeine, hydrocodone (>1000 ng/mL), morphine and hydromorphone (>900 ng/mL) in urine. Performed By: #### C JALIL, BMP #### [facility] ([id number]) [address] [place] [address] 45489 OXYCODONE Negative Normal [facility] Comment on above: Result Comment: Oxyc odone screening cut off value = 300 ng/mL NOTE: This test is used for the detection of oxycodone and oxymorphone in urine. Performed By: #### C JALIL, BMP #### [facility] ([id number]) [address] [place] [address] 84866 PHENCYCLIDINE Negative Normal [facility] Comment on above: Result Comment: Phen cyclidine screening cut off value = 25 ng/mL Performed By: #### C JALIL, BMP #### [facility] ([id number]) [address] [place] [address] 90739 Glucose Glucometer (BldC) [M ass/Vol]on 01-14-2024 Glucose [Mass/Vol] 85 mg/dL Normal 65-99 [facility] Lactate (P juve) [Moles/Vol]o n 08-13-2023 LACTATE W/REFLEX 1.4 mmol/L Normal 0.4-2.0 [facility] Comment on above: Result Comment: Result did not trigger repeat Lactate, re-order if needed. Performed By: #### 1 0839-9, 70800-3, CBCA, 84566-5, CMP #### [facility] ([id number]) [address] [place] [address] 93225 MAGNESIUMon 08-13-2023 Magnesium [Mass/Vol] 2.0 mg/dL Normal 1.8-2.6 [facility] Comment on above: Performed By: #### 1 0839-9, 33847-3, CBCA, 20452-3, CMP #### [facility] ([id number]) [address] [place] [address] 72115 PLATELET COUNT AND MPVon Platelet mean volume (Bld) [Entitic vol] 8.2 fL Normal 7-12 [facility] Comment on above: Performed By: #### C JALIL, BMP #### [facility] ([id number]) [address] [place] [address] 58725 Platelets (Bld) [#/Vol] 322 10*3/uL Normal 150-450 [facility] Comment on above: Performed By: #### C JALIL, BMP #### [facility] ([id number]) [address] [place] [address] [id number] Prolactin [Mass/Vol]on 08-13 PROLACTIN 11.4 ng/mL Normal 2.6-13.1 [facility] Comment on above: Performed By: #### C BCA, BMP #### [facility] ([id number]) [address] [place] [address] [id number] TROPONIN Ion 08-13-2023 Troponin I.cardiac [Mass/Vol] ng/mL Normal 0.00-0.04 [facility] Comment on above: Performed By: #### 1 0839-9, 36432-8, CBCA, 28643-0, CMP #### [facility] ([id number]) [address] [place] [address] [id number] URN MACROSCOPIC NURon 2023 BILIRUBIN JAS Negative Normal NEG [facility] Comment on above: Performed By: #### N UM #### [facility] ([id number]) [address] [place] [address] 51805 BLOOD/HGB JAS Negative Normal NEG [facility] Comment on above: Performed By: #### N UM #### [facility] ([id number]) [address] [place] [address] [place] [address] GLUCOSE JAS Negative Normal NEG [facility] Comment on above: Performed By: #### N UM #### [facility] ([id number]) [address] [place] [address] [place] [address] KETONES JAS Negative Normal NEG [facility] Comment on above: Performed By: #### N UM #### [facility] ([id number]) [address] [place] [address] [place] [address] LEUKOCYTE ESTERASE JAS Negative Normal NEG [facility] Comment on above: Performed By: #### N UM #### [facility] ([id number]) [address] [place] [address] [place] [address] NITRITE JAS Negative Normal NEG [facility] Comment on above: Performed By: #### N UM #### [facility] ([id number]) [address] [place] [address] [place] [address] PH JAS 7.5 Normal 5.0-8.5 [facility] Comment on above: Performed By: #### N UM #### [facility] ([id number]) [address] [place] [address] 264[address] PROTEIN JAS Negative Normal NEG [facility] Comment on above: Performed By: #### N UM #### [facility] ([id number]) [address] [place] [address] SPECIFIC GRAVITY JAS 1.015 Normal 1.003-1.035 [facility] Comment on above: Performed By: #### N UM #### [facility] ([id number]) [address] [place] [address]87 UROBILINOGEN JAS 0.2 eu/dL Normal <1.1 [facility] Comment on above: Performed By: #### N UM #### [facility] ([id number]) [address] [place] [address] 20956 XR CHEST 1 VWon 08-13-2023 XR CHEST [...] Sherman MD on 08/13/2023 1:55 AM Normal [facility] BASIC METABOLIC PANLon 08-07 Anion gap [Moles/Vol] 7 mmol/L Normal 5-15 [facility] Comment on above: Performed By: #### C BCA, BMP #### [facility] ([id number]) [address] [place] [address] 43610 Calcium [Mass/Vol] 9.3 mg/dL Normal 8.5-10.5 [facility] Comment on above: Performed By: #### C BCA, BMP #### [facility] ([id number]) [address] [place] [address]32 Chloride [Moles/Vol] 102 mmol/L Normal 98-109 [facility] Comment on above: Performed By: #### C JALIL, BMP #### [facility] ([id number]) [address] [place] [address] CO2 [Moles/Vol] 25 mmol/L Normal 22-32 [facility] Comment on above: Performed By: #### C JALIL, BMP #### [facility] ([id number]) [address] [place] [address] 13365 Creatinine [Mass/Vol] 1.04 mg/dL Normal 0.70-1.20 [facility] Comment on above: Result Comment: METH OD TRACEABLE TO IDMS STANDARD Performed By: #### C JALIL, BMP #### [facility] ([id number]) [address] [place] [address] GFR/1.73 sq M.predicted among non-blacks MDRD (S/P/Bld) [Vol rate/Area] 89 mL/min/{1.73_m2} Normal >59 [facility] Comment on above: Result Comment: Reported eGFR is based on the CKD-EPI 2020 equation that does not use a race coefficient. Performed By: #### C JALIL, BMP #### [facility] ([id number]) [address] [place] [address] Glucose [Mass/Vol] 98 mg/dL Normal 65-99 [facility] Comment on above: Performed By: #### C JALIL, BMP #### [facility] ([id number]) [address] [place] [address]644 Potassium [Moles/Vol] 4.0 mmol/L Normal 3.5-5.0 [facility] Comment on above: Performed By: #### C JALIL, BMP #### [facility] ([id number]) [address] [place] [address] 96647 Sodium [Moles/Vol] 134 mmol/L Normal 134-146 [facility] Comment on above: Performed By: #### C JALIL, BMP #### [facility] ([id number]) [address] [place] [address] 10989 Urea nitrogen [Mass/Vol] 18 mg/dL Normal 5-23 [facility] Comment on above: Performed By: #### C JALIL, BMP #### [facility] ([id number]) [address] [place] [address] CBC AND AUTO DIFFon 08-07-19 24 ABSOLUTE BASOPHIL 0.1 X10E9/L Normal 0.0-0.2 [facility] Comment on above: Performed By: #### C JALIL, BMP #### [facility] ([id number]) [address] [place] [address] ABSOLUTE NEUTROPHIL 7.5 X10E9/L High 1.5-6.6 [facility] Comment on above: Performed By: #### C JALIL, BMP #### [facility] ([id number]) [address] [place] [address] 54074 Basophils/100 WBC (Bld) 1.1 % Normal [facility] Comment on above: Performed By: #### C JALIL, BMP #### [facility] ([id number]) [address] [place] [address] 14422 Eosinophils (Bld) [#/Vol] 0.1 10*3/uL Normal 0.0-0.4 [facility] Comment on above: Performed By: #### C JALIL, BMP #### [facility] ([id number]) [address] [place] [address] 70407 Eosinophils/100 WBC (Bld) 0.6 % Normal [facility] Comment on above: Performed By: #### C JALIL, BMP #### [facility] ([id number]) [address] [place] [address] 22990 Erythrocyte distribution width (RBC) [Ratio] 14.5 % Normal 11.5-15.0 [facility] Comment on above: Performed By: #### C JALIL, BMP #### [facility] ([id number]) [address] [place] [address] 38893 Hematocrit (Bld) [Volume fraction] 42.1 % Normal 39-49 [facility] Comment on above: Performed By: #### C JALIL, BMP #### [facility] ([id number]) [address] [place] [address] Hemoglobin (Bld) [Mass/Vol] 14.7 g/dL Normal 13.0-17.0 [facility] Comment on above: Performed By: #### C JALIL, BMP #### [facility] ([id number]) [address] [place] [address] 13264 Lymphocytes (Bld) [#/Vol] 1.3 10*3/uL Normal 1.0-3.5 [facility] Comment on above: Performed By: #### C JALIL, BMP #### [facility] ([id number]) [address] [place] [address] 38317 Lymphocytes/100 WBC (Bld) 13.6 % Normal [facility] Comment on above: Performed By: #### C JALIL, BMP #### [facility] ([id number]) [address] [place] [address] 10820 MCH (RBC) [Entitic mass] 31.1 pg Normal 27-34 [facility] Comment on above: Performed By: #### C BCA, BMP #### [facility] ([id number]) [address] [place] [address] 74115 MCHC (RBC) [Mass/Vol] 34.9 g/dL Normal 32-36 [facility] Comment on above: Performed By: #### C BCA, BMP #### [facility] ([id number]) [address] [place] [address] 74230 MCV (RBC) [Entitic vol] 89 fL Normal 80-100 [facility] Comment on above: Performed By: #### C JALIL, BMP #### [facility] ([id number]) [address] [place] [address] 89792 Monocytes (Bld) [#/Vol] 0.7 10*3/uL Normal 0-0.9 [facility] Comment on above: Performed By: #### C JALIL, BMP #### [facility] ([id number]) [address] [place] [address] 67567 Monocytes/100 WBC (Bld) 6.9 % Normal [facility] Comment on above: Performed By: #### C JALIL, BMP #### [facility] ([id number]) [address] [place] [address] 78333 Neutrophils/100 WBC (Bld) 77.8 % Normal [facility] Comment on above: Performed By: #### C JALIL, BMP #### [facility] ([id number]) [address] [place] [address] 61616 Platelet mean volume (Bld) [Entitic vol] 7.6 fL Normal 7-12 [facility] Comment on above: Performed By: #### C JALIL, BMP #### [facility] ([id number]) [address] [place] [address] 84646 Platelets (Bld) [#/Vol] 369 10*3/uL Normal 150-450 [facility] Comment on above: Performed By: #### C JALIL, BMP #### [facility] ([id number]) [address] [place] [address] 77515 RBC COUNT 4.73 X10E12/L Normal 4.10-5.70 [facility] Comment on above: Performed By: #### C JALIL, BMP #### [facility] ([id number]) [address] [facility], [place] [address] WBC (Bld) [#/Vol] 9.6 10*3/uL Normal 4.0-11.0 [facility] Comment on above: Performed By: #### C BCA, BMP #### [facility] ([id number]) [address] [place] [address] BRAIN WO CONTon 4 CT BRAIN [...] Smith MD on 08/07/2023 6:27 PM Normal [facility] XR WRIST LT MIN 3 Von 2022 XR WRIST LT MIN 3 V EXAM: XR WRIST LT MA N 3 V HISTORY: Wrist pain COMPARISON: None. TECHNIQUE: 3 views FINDINGS: No osseous lesion, fracture, dislocation or subluxation. Joint spaces are normal. No visualized effusion. No visualized soft tissue edema. IMPRESSION: Normal x-rays Electronically authenticated by: NONI MOISE Date: 2022-11-16 20:44 Normal [facility] CBC AUTO DIFFon 05-26-2022 BASO # 0.1 103/ul Normal 0.0-0.1 [facility] Comment on above: Performed By: #### C BC #### [facility] [address] [place], [place] [address] Dr. Liudmila Edmondson Basophils/100 WBC (Bld) 1.2 % Normal 0.2-2.0 [facility] Comment on above: Performed By: #### C BC #### [facility] [address] [place], [place] [address] Dr. Liudmila Edmondson EO # 0.4 103/ul Normal 0.0-0.7 [facility] Comment on above: Performed By: #### C BC #### [facility] [address] [place] [address] Dr. Liudmila Edmondson Eosinophils/100 WBC (Bld) 4.3 % Normal 0.9-7.0 [facility] Comment on above: Performed By: #### C BC #### [facility] [address] [place] [address] Dr. Liudmila Edmondson Erythrocyte distribution width (RBC) [Ratio] 13.4 % Normal 11.0-15.0 [facility] Comment on above: Performed By: #### C BC #### [facility] [address] [place] [address] Dr. Liudmila Edmondson Hematocrit (Bld) [Volume fraction] 42.4 % Normal 42.0-54.0 [facility] Comment on above: Performed By: #### C BC #### [facility] [address] [place] [address] Dr. Liudmila Edmondson Hemoglobin (Bld) [Mass/Vol] 15.1 g/dL Normal 14.0-18.0 [facility] Comment on above: Performed By: #### C BC #### [facility] [address] [place] [address] Dr. Liudmila Edmondson IG # 0.02 10e3/ul Normal 0.00-0.03 [facility] Comment on above: Performed By: #### C BC #### [facility] [address] [place] [address] Dr. Liudmila Edmondson IG % 0.2 % Normal 0.0-0.5 [facility] Comment on above: Performed By: #### C BC #### [facility] [address] [place] [address] Dr. Liudmila Edmondson LYMPH # 2.4 103/ul Normal 1.2-3.8 [facility] Comment on above: Performed By: #### C BC #### [facility] [address] [place] [address] Dr. Liudmila Edmondson Lymphocytes/100 WBC (Bld) 24.6 % Normal 20.5-60.0 [facility] Comment on above: Performed By: #### C BC #### [facility] [address] [place] [address] Dr. Liudmila Edmondson MANUAL DIFF REQ NO Normal [facility] Comment on above: Performed By: #### C BC #### [facility] [address] [place] [address] Dr. Liudmila Edmondson MCH (RBC) [Entitic mass] 30.7 pg Normal 25.9-34.0 [facility] Comment on above: Performed By: #### C BC #### [facility] [address] [place] [address] Dr. Liudmila Edmondson MCHC (RBC) [Mass/Vol] 35.6 g/dL Critically high 29.9-35.2 [facility] Comment on above: Performed By: #### C BC #### [facility] [address] [place] [address] Dr. Liudmila Edmondson MCV (RBC) [Entitic vol] 86.2 fL Normal 80.0-94.0 [facility] Comment on above: Performed By: #### C BC #### [facility] [address] [place] [address] Dr. Liudmila Edmondosn MONO # 0.7 103/ul Normal 0.3-0.8 [facility] Comment on above: Performed By: #### C BC #### [facility] [address] [place] [address] Dr. Liudmila Edmondson Monocytes/100 WBC (Bld) 7.1 % Normal 1.7-12.0 [facility] Comment on above: Performed By: #### C BC #### [facility] [address] [place] [address] Dr. Liudmila Edmondson NEUT # 6.0 103/ul Normal 1.4-6.5 [facility] Comment on above: Performed By: #### C BC #### [facility] [address] [place] [address] Dr. Liudmila Edmondson Neutrophils/100 WBC (Bld) 62.6 % Normal 43.0-75.0 [facility] Comment on above: Performed By: #### C BC #### [facility] [address] [place] [address] Dr. Liudmila Edmondson Platelet mean volume (Bld) [Entitic vol] 9.4 fL Critically low 9.5-13.5 [facility] Comment on above: Performed By: #### C BC #### [facility] [address] [place] [address] Dr. Liudmila Edmondson PLT 328 103/ul Normal 150-450 [facility] Comment on above: Performed By: #### C BC #### [facility] [address] [place] [address] Dr. Liudmila Edmondson RBC 4.92 106/ul Normal 4.70-6.10 [facility] Comment on above: Performed By: #### C BC #### [facility] [address] [place] [address] Dr. Liudmila Edmondson WBC 9.7 103/ul Normal 4.0-11.0 [facility] Comment on above: Performed By: #### C BC #### [facility] [address] [place] [address] Dr. Liudmila Edmondson CRPon 05-26-2022 CRP [Mass/Vol] mg/L Critically high <=1.0 [facility] [place] [facility] Comment on above: Performed By: #### C RP, BMP #### [facility] [address] [place] [address] Dr. Liudmila Edmondson PROF CHEM 8 (BAS METB)on Anion gap [Moles/Vol] 9.0 mmol/L Normal [facility] Comment on above: Performed By: #### C RP, BMP #### [facility] [address] [place] [address] Dr. Liudmila Edmondson Calcium [Mass/Vol] 8.8 mg/dL Normal 8.5-10.1 [facility] Comment on above: Performed By: #### C RP, BMP #### [facility] [address] [place] [address] Dr. Liudmila Edmondson Chloride [Moles/Vol] 105 mmol/L Normal 98-107 [facility] Comment on above: Performed By: #### C RP, BMP #### [facility] [address] [place] [address] [address] Liudmila Edmondson CO2 [Moles/Vol] 27.8 mmol/L Normal 21.0-32.0 [facility] Comment on above: Performed By: #### C RP, BMP #### [facility] [address] [place] [address] [address] Liudmila Edmondson Creatinine [Mass/Vol] 0.99 mg/dL Normal 0.70-1.30 [facility] Comment on above: Performed By: #### C RP, BMP #### [facility] [address] [place] [address] [address] Liudmila Edmondson EGFR-AF PUERTO RICAN >60 Normal >=60 [facility] Comment on above: Performed By: #### C RP, BMP #### [facility] [address] [place] [address] Dr. Liudmila Edmondson EGFR-NON AF PUERTO RICAN >60 Normal >=60 [facility] Comment on above: Performed By: #### C RP, BMP #### [facility] [address] [place] [address] [address] Liudmila Edmondson Glucose [Mass/Vol] 135 mg/dL Critically high 74-106 [facility] Comment on above: Performed By: #### C RP, BMP #### [facility] [address] [place] [address] [address] Liudmila Edmondson Potassium [Moles/Vol] 3.8 mmol/L Normal 3.5-5.1 [facility] Comment on above: Performed By: #### C RP, BMP #### [facility] [address] [place] [address] [address] Liudmila Edmondson Sodium [Moles/Vol] 138 mmol/L Normal 136-145 [facility] Comment on above: Performed By: #### C RP, BMP #### [facility] [address] [place] [address] [address] Liudmila Edmondson Urea nitrogen [Mass/Vol] 23.0 mg/dL Critically high 7.0-18.0 [facility] Comment on above: Performed By: #### C RP, BMP #### [facility] [address] [place] [address] [address] Liudmila Edmondson Urea nitrogen/Creatinine [Mass ratio] 23.2 mg/mg Normal [facility] Comment on above: Performed By: #### C RP, BMP #### [facility] [address] [place] [address] [address] Liudmila Edmondson SED RATE [facility] 2021 SED RATE 43 mm/hr Critically high <=15 [facility] Comment on above: Performed By: #### S EDR #### [facility] [address] [place] [address] [address] Liudmila Edmondson Encounters Encounter Date Encounter Type Care Provider Facility Start: 08-14-2023 End: 08-15-2023 ambulatory [facility] Start: 08-13-2023 End: 08-15-2023 Emergency department patient visit [facility] Start: 08-13-2023 End: 08-15-2023 Emergency department patient visit [facility] Start: 08-13-2023 End: 08-14-2023 ambulatory NO PCP NO PCP [facility] Start: 08-07-2023 End: 08-08-2023 Emergency department patient visit [facility] Start: 08-07-2023 End: 08-07-2023 Emergency department patient visit [facility] Start: 06-01-2023 ambulatory Barak Engel acility:[facility] Start: 11-16-2022 End: 11-16-[address] [...] Facility:[facility] Payers Date Payer Category Payer Unknown [id number] 2023 Self-pay 1975 Unknown [id number] 2.16.84 [id number] 1975 Unknown [id number] 2.16.84 [id number] 1975 Unknown [id number] 2.16.84 0.1.971628.3.579.2.593 1975 Unknown [id number] 2.16.84 0.1.057008.3.579.2.593 1975 Unknown [id number] 2.16.84 0.1.646650.3.579.2.593 1975 Unknown [id number] 2.16.84 0.1.177569.3.579.2.593 1975 Unknown [id number] 2.16.84 0.1.065714.3.579.2.1286 1975 Unknown [id number] 2.16.84 0.1.952825.3.579.2.1286 1959 Medicaid [id number] 1959 Self-pay [id number] Unknown [id number] 2.16.84 0.1.025851.3.579.2.1286 Unknown [id number] 2.16.84 0.1.661817.3.579.2.1286 Unknown [id number] 2.16.84 0.1.131903.3.579.2.1286 Unknown [id number] 2.16.84 0.1.113414.3.579.2.1286 Unknown [id number] 2.16.84 0.1.632587.3.579.2.1286 Summary Purpose Family History No Family History Records FoundNo Family History Records FoundNo Family History Records Found Advance Directives No Advanced Directives Records FoundNo Advanced Directives Records FoundNo Advanced Directives Records Found Additional Source Comments (unrecognized sect ion and content) No Status Records FoundNo Status Records FoundNo Status Records Found INFORMATION SOURCE (unrecogn ized section and content) DATE CREATED AUTHOR 11/19/2022 [facility] DATE CREATED AUTHOR AUTHOR'S ORGANIZ ATION 08/17/2023 [facility] DATE CREATED AUTHOR AUTHOR'S ORGANIZ ATION 09/01/2023 [facility] FOR RECORDS PERTAINING TO PATIENTS WHO [...] BE BASED ON THE PRIMARY CLINICAL RECORDS. [facility] [employer] provides no warranty or guarantee of the accuracy or completeness of information in this document.
--- NOTE | 2023-09-10 22:31 | ED_ITS ---
HPI - Male Genitourinary General Chief complaint: Urogenital-Male Stated complaint: UROGENITAL-MALE Time Seen by Provider: 09/10/23 22:28 Source: patient Mode of arrival: walk-in Limitations: no limitations History of Present Illness HPI Narrative: past history of appendectomy. Presents complaining of pain RLQ. States present all day and has progressed. Able to urinate but only small volumes. No fever. Denies genital/testicle pain Related Data Previous Rx's Medication Instructions Recorded levetiracetam 500 mg tablet 500 mg PO Q12H #20 tabs 09/08/23 (Keppra) Allergies Allergy/AdvReac Type Severity Reaction Status Date / Time iodine Allergy Verified 09/07/23 21:45 Review of Systems ROS Status of ROS 10 or more systems reviewed and unremark able except as noted in history and below [facility] Medical History (Updated 09/11/23 @ 01:31 by Deon Corona MD) COPD with exacerbation ?J44.1 - Chronic obstructive pulmonary disease with (acute) exacerbation (ICD-10) Seizures, 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 (ICD-10) Enlarged prostate ?N40.0 - Benign prostatic hyperplasia without lower urinary tract symptoms (ICD-10) Suicidal ideation ?R45.851 - Suicidal ideations (ICD-10) Contusion of right wrist ?S60.211A - Contusion of right wrist, initial encounter (ICD-10) Surgical History (Updated 06/28/23 @ 05:12 by Ginny Trinh) History of appendectomy ?Z90.49 - Acquired absence of other specified parts of digestive tract (ICD- 10) Family History (Updated 06/28/23 @ 05:13 by Ginny Trinh) Mother Family history of CHF (congestive heart failure) Family history of cancer Family history of myocardial infarction Father Family history of COPD (chronic obstructive pulmonary disease) Family history of hypertension Family history of myocardial infarction Social History Within the past year, how often did you have a drink containing alcohol: never Within the past year, how often did you have six or more drinks on one occasion: never Score interpretation: A score less than 4 is consistent with normal alcohol consumption. 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 Known occupational exposures/hazards: No Highest level of school completed/degree received: high school graduate Do you want help with school or training: No Are you now , , , , never or living with a partner: In a typical week, how many times do you talk on the telephone with family, friends, or neighbors: 3 or more times per week How often do you get together with friends or relatives: never How often do you attend shinto or jew services: never Do you belong to any clubs or organizations such as shinto groups unions, [employer] or athletic groups, or school groups: no Total score: 1 Score interpretation: A score of less than or equal to 1 indicates the most socially isolated. Little interest or pleasure in doing things: nearly every day Feeling down, depressed, or hopeless: nearly every day Feel stressed/tense/nervous/anxious/difficulty sleeping: very much Life stressors: loss of job and financial matters Due to disability, difficulty making decisions: No Do you think of yourself as: straight/heterosexual Gender Identity: male Exam Constitutional Vital Signs, click to edit/add: Last Vital Signs Temp 99.4 F 09/10/23 22:22 Pulse 67 09/11/23 00:51 Resp 17 09/10/23 22:22 BP 122/80 09/11/23 00:51 Pulse Ox 99 09/11/23 00:51 O2 Del Method Room Air 09/10/23 22:22 Common normals: no apparent distress (mild distress), oriented x3, no limitations, healthy appearing, alert and well nourished Eye Common normals: EOMs intact bilaterally and conjunctivae normal Respiratory Common normals: normal respiratory effort, no retractions and no use of accessory muscles Cardio Common normals: regular rate, regular rhythm, S1 normal heart sound and S2 normal heart sound GI Other: mild-mod RLQ tenderness. no guarding Extremity Common normals: normal to inspection and full ROM Neuro Common normals: oriented x3, CN's II-XII intact bilaterally, moves all extremit ies and no focal motor deficits Psych Appearance: grossly normal Course Vital Signs Vital signs: Vital Signs Temperature 99.4 F 09/10/23 22:22 Pulse Rate 95 H 09/10/23 22:22 Respiratory Rate 17 09/10/23 22:22 Blood Pressure 115/72 09/10/23 22:22 Pulse Oximetry 98 09/10/23 22:22 Oxygen Delivery Method Room Air 09/10/23 22:22 Temperature 99.4 F 09/10/23 22:22 Pulse Rate 67 09/11/23 00:51 Respiratory Rate 17 09/10/23 22:22 Blood Pressure 122/80 09/11/23 00:51 Pulse Oximetry 99 09/11/23 00:51 Oxygen Delivery Method Room Air 09/10/23 22:22 MDM - Male Genitourinary MDM Narrative Medical decision making narrative: patient presents with abdominal pain. RLL all day. localized tenderness. labs and diagnostic studies neg. Pain improved after Toradol and norflex.discharged home to follow up with his doctor Lab Data Labs: Lab Results 09/10/23 09/10/23 Range/Units 22:45 23:05 WBC 7.5 (4.0-11.0) 10^3/uL RBC 4.11 L (4.70-6.10) 10^6/uL Hgb 12.6 L (14.0-18.0) g/dL Hct 37.6 L (42.0-54.0) % MCV 91.5 (80.0-94.0) fL MCH 30.7 (25.9-34.0) pg MCHC 33.5 (29.9-35.2) g/dL RDW 13.8 (11.0-15.0) % Plt Count 245 (150-450) 10^3/uL MPV 10.2 (9.5-13.5) fL Neut % (Auto) 81.9 H (43.0-75.0) % Lymph % (Auto) 6.5 L (20.5-60.0) % [place] % (Auto) 9.7 (1.7-12.0) % Eos % (Auto) 0.3 L (0.9-7.0) % Baso % (Auto) 1.3 (0.2-2.0) % Neut # (Auto) 6.1 (1.4-6.5) 10^3/uL Lymph # (Auto) 0.5 L (1.2-3.8) 10^3/uL [place] # (Auto) 0.7 (0.3-0.8) 10^3/uL Eos # (Auto) 0.0 (0.0-0.7) 10^3/uL Baso # (Auto) 0.1 (0.0-0.1) 10^3/uL Abs Immat Gran (auto) 0.02 (0.00-0.03) 10^3/uL Imm/Tot Granulo (auto) 0.3 (0.0-0.5) % Sodium 140 (136-145) mmol/L Potassium 3.7 (3.5-5.1) mmol/L Chloride 103 (98-107) mmol/L Carbon Dioxide 23.2 (21.0-32.0) mmol/L Anion Gap 17.5 BUN 22.0 H (7.0-18.0) mg/dL Creatinine 1.32 H (0.70-1.30) mg/dL Est GFR ( Amer) >60 (>=60) Est GFR (Non-Af Amer) 58 L (>=60) BUN/Creatinine Ratio 16.7 Glucose 103 (74-106) mg/dL Lactate 1.2 (0.4-2.0) mmol/L Calcium 8.5 (8.5-10.1) mg/dL Total Bilirubin 0.4 (0.2-1.0) mg/dL AST 20 (15-37) U/L ALT 16 (16-63) U/L Alkaline Phosphatase 66 (46-116) U/L Total Protein 7.6 (6.4-8.2) g/dL Albumin 3.4 (3.4-5.0) g/dL Globulin 4.2 g/dL Albumin/Globulin Ratio 0.8 Lipase 23.0 (16.0-77.0) U/L Urine Color Dk. yellow (YELLOW) Urine Clarity Clear (CLEAR) Urine pH 6.5 (5.0-9.0) Ur Specific [place] >=1.030 A (1.005-1.025) Urine Protein 30 A (NEG/TRACE) mg/dL Urine Glucose (UA) Negative (NEGATIVE) mg/dL Urine Ketones Trace A (NEGATIVE) mg/dL Urine Occult Blood Trace-i (NEGATIVE) Urine Nitrite Negative (NEGATIVE) Urine Bilirubin Small A (NEGATIVE) Urine Urobilinogen 4.0 A (0.2-1.0) EU/dL Ur Leukocyte Esterase Negative (NEGATIVE) Urine RBC 0-2 (0-2) #/HPF Urine WBC None seen (NONE SEEN) #/HPF Ur Squamous Epith Cells None seen (NONE/RARE) #/LPF Urine Crystals None seen (None Seen) #/HPF Urine Bacteria None seen (NONE SEEN) #/HPF Urine Casts None seen (NONE SEEN) #/LPF Urine Mucus None seen (NONE SEEN) Imaging Data Abdominal x-ray: Radiologist's impression: ITS Impressions Abdomen/Pelvis CT 09/10/23 22:34 IMPRESSION: 1. No acute findings. 2. Aortic atherosclerosis. : Electronically authenticated by: DAVY BALLARD Date: 09/10/2023 23:15 Discharge Plan Discharge Chief Complaint: Urogenital-Male Clinical Impression: Abdominal wall pain Patient Disposition: Home, Self-Care Prescriptions / Home Meds: No Action levetiracetam [Keppra] 500 mg tablet 500 mg PO Q12H Qty: 20 0RF Instructions: Acute Abdominal Pain (DC) Stand Alone Forms: Portal Instructions Referrals: Physician,Non-Staff, MD [Primary Care Provider] - 1 week
--- NOTE | 2023-09-10 22:34 | CT_ITS ---
The [address] [address] Patient Name: SYLVIA OBANDO MRN: [id number] date: 1975 Sex: M Assigned Patient Location: ER Current Patient Location: Accession/Order Number: [id number] Exam Date: 09/10/2023 22:50 Report Date: 09/11/2023 02:15 At the request of: JOI REYES Procedure: CT abdomen pelvis wo con EXAM: CT abdomen pelvis wo con HISTORY: RLQ pain COMPARISON: None. TECHNIQUE: Images of the abdomen and pelvis without contrast. FINDINGS: Lung bases are clear. No pleural or pericardial fluid. No adrenal mass or retroperitoneal lymphadenopathy. No nephrolithiasis or hydronephrosis. No biliary or pancreatic ductal dilatation. Aortic atherosclerosis without aneurysm. No bowel obstruction or inflammation. No pneumatosis or pneumoperitoneum. Normal appendix. No pelvic adenopathy or ascites. Bladder is decompressed. Prostate is not significantly enlarged. No inguinal hernia. No acute bony abnormality. CT/CT abdomen pelvis wo con IMPRESSION: 1. No acute findings. 2. Aortic atherosclerosis. : Electronically authenticated by: DAVY BALLARD Date: 09/11/2023 02:15
[2023-09-10] MEDS: 0.9 % SODIUM CHLORIDE 1,000 ML 999 ML IV (23:01)
[2023-09-10] MEDS: KETOROLAC TROMETHAMINE 30 MG/ML VIAL IVP (23:01)
[2023-09-10 23:05] LABS: Basophils Absolute Auto 0.1 10^3/uL (0.0-0.1); Basophils Percent Auto 1.3 % (0.2-2.0); Eosinophils Percent Auto 0.3 % (0.9-7.0); Hematocrit 37.6 % (42.0-54.0); Hemoglobin 12.6 g/dL (14.0-18.0); Immature Granulocytes Abs Auto 0.02 10^3/uL (0.00-0.03); Immature Granulocytes Pct Auto 0.3 % (0.0-0.5); Lymphocytes Absolute Auto 0.5 10^3/uL (1.2-3.8); Lymphocytes Percent Auto 6.5 % (20.5-60.0); Mean Corpuscular HGB Conc 33.5 g/dL (29.9-35.2); Mean Corpuscular Hemoglobin 30.7 pg (25.9-34.0); Mean Corpuscular Volume 91.5 fL (80.0-94.0); Mean Platelet Volume 10.2 fL (9.5-13.5); Monocytes Absolute Auto 0.7 10^3/uL (0.3-0.8); Monocytes Percent Auto 9.7 % (1.7-12.0); Neutrophils Absolute Auto 6.1 10^3/uL (1.4-6.5); Neutrophils Percent Auto 81.9 % (43.0-75.0); Platelet Count 245 10^3/uL (150-450); Red Blood Count 4.11 10^6/uL (4.70-6.10); Red Cell Distribution Width 13.8 % (11.0-15.0); White Blood Count 7.5 10^3/uL (4.0-11.0)
[2023-09-10 23:16] LABS: Alanine Aminotransferase 16 U/L (16-63); Albumin Globulin Ratio 0.8; Albumin Level 3.4 g/dL (3.4-5.0); Alkaline Phosphatase 66 U/L (46-116); Anion Gap 17.5; Aspartate Amino Transferase 20 U/L (15-37); BUN Creatinine Ratio 16.7; Bilirubin Total 0.4 mg/dL (0.2-1.0); Calcium 8.5 mg/dL (8.5-10.1); Carbon Dioxide 23.2 mmol/L (21.0-32.0); Chloride 103 mmol/L (98-107); Estimated GFR (African America >60 (>=60); Estimated GFR (Non-African Ame 58 (>=60); Globulin 4.2 g/dL; Glucose 103 mg/dL (74-106); Potassium 3.7 mmol/L (3.5-5.1); Sodium 140 mmol/L (136-145); Total Protein 7.6 g/dL (6.4-8.2)
[2023-09-10 23:19] LABS: Lactate/Lactic Acid 1.2 mmol/L (0.4-2.0)
[2023-09-10 23:39] LABS: Bilirubin Urine SMALL (NEGATIVE); Blood Urine TRACE-I (NEGATIVE); Clarity Urine CLEAR (CLEAR); Color Urine DK. YELLOW (YELLOW); Glucose Urine UA NEGATIVE (NEGATIVE); Ketones Urine TRACE mg/dL (NEGATIVE); Leukocyte Esterase Urine NEGATIVE (NEGATIVE); Nitrite Urine NEGATIVE (NEGATIVE); Protein Urine 30 mg/dL (NEG/TRACE); Specific Gravity Urine >=1.030 (1.005-1.025); Urine Microscopic Indicated YES; pH Urine 6.5 (5.0-9.0)
[2023-09-10 23:45] LABS: Bacteria Urine NONE SEEN #/HPF (NONE SEEN); Cast Seen? NONE SEEN #/LPF (NONE SEEN); Crystals Seen? None Seen #/HPF (None Seen); Mucus Urine NONE SEEN (NONE SEEN); RBC Urine 0-2 #/HPF (0-2); Squamous Epithelial Cell Urine NONE SEEN #/LPF (NONE/RARE); WBC Urine NONE SEEN #/HPF (NONE SEEN)
[2023-09-11] VITALS (11 sets, daily range): BP systolic 119–125; BP diastolic 75–83; PULSE 67; O2SAT 96–99
[2023-09-11] MEDS: ORPHENADRINE 60 MG/ 2 ML VIAL IV (00:49)
== END 2023-09-11 01:43 | disposition home or self-care (01) ==
PROVIDERS: Emergency Provider Internal Medicine
DX: R10.9 Unspecified abdominal pain (principal); J44.9 Chronic obstructive pulmonary disease, unspecified; N40.0 Benign prostatic hyperplasia without lower urinary tract symptoms; F17.210 Nicotine dependence, cigarettes, uncomplicated; Z90.49 Acquired absence of other specified parts of digestive tract
CPT/HCPCS: 36415; 74176; 80053; 81001; 83605; 83690; 85025; 96374; 96375; 99284; J1885; J2360

== ENCOUNTER 2023-11-15 02:46 | Emergency (ER) | payer OTHER, MEDICAID, SELFPAY ==
[2023-11-15] VITALS (19 sets, daily range): BP systolic 104–143; BP diastolic 74–83; PULSE 60–78; TEMP 36.8; O2SAT 95–99; BMI 21.2
--- NOTE | 2023-11-15 03:05 | ED_ITS ---
HPI - Chest Pain General Chief Complaint: Chest Pain Stated Complaint: chest pain Time Seen by Provider: 11/15/23 02:59 Source: patient Mode of arrival: ambulance History of Present Illness HPI narrative: patient states he was walking at work and developed chest tightness. States he woke up and was being transported here. Has a history of seizure. States he has not taken his seizure medication for 2-3 months as he ran out of his medication. Denies past history of heart disease. Denies injury from fall. Arrives via Squad with C-collar in place complaint: Reports chest pain Related Data Home Medications ?Medication ?Instructions ?Recorded ?Confirmed aspirin 81 mg tablet,delayed 81 mg PO BID 11/15/23 11/15/23 release (Adult Low Dose Aspirin) levetiracetam 500 mg tablet 500 mg PO DAILY 11/15/23 11/15/23 (Keppra) Allergies Allergy/AdvReac Type Severity Reaction Status Date / Time iodine Allergy Verified 09/07/23 21:45 Review of Systems ROS Status of ROS 10 or more systems reviewed and unremark able except as noted in history and below [facility] Medical History (Updated 11/15/23 @ 04:45 by Deon Corona MD) COPD with exacerbation ?J44.1 - Chronic obstructive pulmonary disease with (acute) exacerbation (ICD-10) Seizures, 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 (ICD-10) Enlarged prostate ?N40.0 - Benign prostatic hyperplasia without lower urinary tract symptoms (ICD-10) Suicidal ideation ?R45.851 - Suicidal ideations (ICD-10) Contusion of right wrist ?S60.211A - Contusion of right wrist, initial encounter (ICD-10) Surgical History (Updated 06/28/23 @ 05:12 by Ginny Trinh) History of appendectomy ?Z90.49 - Acquired absence of other specified parts of digestive tract (ICD- 10) Family History (Updated 06/28/23 @ 05:13 by Ginny Trinh) Mother Family history of CHF (congestive heart failure) Family history of cancer Family history of myocardial infarction Father Family history of COPD (chronic obstructive pulmonary disease) Family history of hypertension Family history of myocardial infarction Social History Within the past year, how often did you have a drink containing alcohol: never Within the past year, how often did you have six or more drinks on one occasion: never Score interpretation: A score less than 4 is consistent with normal alcohol consumption. 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 Known occupational exposures/hazards: No Highest level of school completed/degree received: high school graduate Do you want help with school or training: No Are you now , , , , never or living with a partner: In a typical week, how many times do you talk on the telephone with family, friends, or neighbors: 3 or more times per week How often do you get together with friends or relatives: never How often do you attend confucianism or methodist services: never Do you belong to any clubs or organizations such as confucianism groups unions, [employer] or athletic groups, or school groups: no Total score: 1 Score interpretation: A score of less than or equal to 1 indicates the most socially isolated. Little interest or pleasure in doing things: nearly every day Feeling down, depressed, or hopeless: nearly every day Feel stressed/tense/nervous/anxious/difficulty sleeping: very much Life stressors: loss of job and financial matters Due to disability, difficulty making decisions: No Do you think of yourself as: straight/heterosexual Gender Identity: male Exam Constitutional Vital Signs, click to edit/add: Last Vital Signs Temp 98.2 F 11/15/23 02:48 Pulse 65 11/15/23 04:30 Resp 12 11/15/23 04:30 BP 123/79 11/15/23 04:30 Pulse Ox 96 11/15/23 04:30 O2 Del Method Room Air 11/15/23 02:56 Common normals: no apparent distress, average body habitus, oriented x3, no limitations, healthy appearing, alert and well nourished [facility] Common normals: normocephalic and head/scalp atraumatic Eye Common normals: EOMs intact bilaterally and conjunctivae normal Respiratory Common normals: normal respiratory effort, no retractions, no use of accessory muscles and clear to auscultation bilaterally Cardio Common normals: regular rate, regular rhythm, S1 normal heart sound and S2 normal heart sound GI Common normals: Normal to inspection, nondistended, normoactive bowel sounds present, soft to palpation and non-tender Extremity Common normals: normal to inspection and full ROM Neuro Common normals: oriented x3, CN's II-XII intact bilaterally, moves all extremities and no focal motor deficits Psych Appearance: grossly normal Course Vital Signs Vital signs: Vital Signs Temperature 98.2 F 11/15/23 02:48 Pulse Rate 74 11/15/23 02:48 Respiratory Rate 22 H 11/15/23 02:48 Blood Pressure 143/82 H 11/15/23 02:48 Pulse Oximetry 98 11/15/23 02:48 Oxygen Delivery Method Room Air 11/15/23 02:48 Temperature 98.2 F 11/15/23 02:48 Pulse Rate 65 11/15/23 04:30 Respiratory Rate 12 11/15/23 04:30 Blood Pressure 123/79 11/15/23 04:30 Pulse Oximetry 96 11/15/23 04:30 Oxygen Delivery Method Room Air 11/15/23 02:56 MDM - Chest Pain MDM Narrative Medical decision making narrative: patient presents after episode of chest pain and syncope. He was at work. States he was stressed and developed chest pain. He then passed out and woke up on the floor with people standing over him. Arrived to the ER asymptomatic. Workup in the ERneg. Advised the patient that I would recommend hospital admission to continue his workup but he does not want to stay and is asking to be discharged. Advised of the importance of close followup Lab Data Labs: Lab Results 11/15/23 Range/Units 02:52 WBC 9.3 (4.0-11.0) 10^3/uL RBC 5.30 (4.70-6.10) 10^6/uL Hgb 16.1 (14.0-18.0) g/dL Hct 48.2 (42.0-54.0) % MCV 90.9 (80.0-94.0) fL MCH 30.4 (25.9-34.0) pg MCHC 33.4 (29.9-35.2) g/dL RDW 13.9 (11.0-15.0) % Plt Count 415 (150-450) 10^3/uL MPV 10.0 (9.5-13.5) fL Neut % (Auto) 59.6 (43.0-75.0) % Lymph % (Auto) 30.7 (20.5-60.0) % [place] % (Auto) 6.3 (1.7-12.0) % Eos % (Auto) 1.9 (0.9-7.0) % Baso % (Auto) 1.3 (0.2-2.0) % Neut # (Auto) 5.5 (1.4-6.5) 10^3/uL Lymph # (Auto) 2.9 (1.2-3.8) 10^3/uL [place] # (Auto) 0.6 (0.3-0.8) 10^3/uL Eos # (Auto) 0.2 (0.0-0.7) 10^3/uL Baso # (Auto) 0.1 (0.0-0.1) 10^3/uL Abs Immat Gran (auto) 0.02 (0.00-0.03) 10^3/uL Imm/Tot Granulo (auto) 0.2 (0.0-0.5) % D-Dimer 0.23 (<=0.59) mg/L FEU Sodium 141 (136-145) mmol/L Potassium 3.5 (3.5-5.1) mmol/L Chloride 104 (98-107) mmol/L Carbon Dioxide 26.7 (21.0-32.0) mmol/L Anion Gap 13.8 BUN 14.0 (7.0-18.0) mg/dL Creatinine 0.98 (0.70-1.30) mg/dL Est GFR ( Amer) >60 (>=60) Est GFR (Non-Af Amer) >60 (>=60) BUN/Creatinine Ratio 14.3 Glucose 103 (74-106) mg/dL Calcium 9.7 (8.5-10.1) mg/dL Troponin I High Sens 5.2 (4.0-76.1) pg/mL Imaging Data Chest x-ray: Radiologist's impression: ITS Impressions Cervical Spine CT 11/15/23 03:19 IMPRESSION: No fracture or malalignment. Electronically authenticated by: CORNELIA YEAGER Date: 11/15/2023 04:10 Chest X-Ray 11/15/23 03:19 IMPRESSION: Stable chest, with no acute radiographic findings. This report was generated with voice recognition software. Effort has been made to ensure accuracy of this report, however, occasional wording errors may persist. Please contact our office with any questions. Electronically authenticated by: CORNELIA YEAGER Date: 11/15/2023 04:[address] 11/15/23 03:19 IMPRESSION: No acute or significant intracranial pathology. Electronically authenticated by: CORNELIA YEAGER Date: 11/15/2023 04:07 Discharge Plan Discharge Stand Alone Forms: Portal Instructions Chief Complaint: Chest Pain Clinical Impression: Syncope, Chest pain Patient Disposition: Home, Self-Care Prescriptions / Home Meds: No Action aspirin [Adult Low Dose Aspirin] 81 mg tablet,delayed release (DR/EC) 81 mg PO BID levetiracetam [Keppra] 500 mg tablet 500 mg PO DAILY Print Language: [place] Islander Instructions: Chest Pain (ED), Syncope (ED) Additional Instructions: follow up with your doctor or with Dr López in one day for recheck Referrals: Physician,Non-Staff, MD [Primary Care Provider] - 1 week
--- NOTE | 2023-11-15 03:19 | XR_ITS ---
The [address] [address] Patient Name: SYLVIA OBANDO MRN: [id number] date: 1975 Sex: M Assigned Patient Location: ER Current Patient Location: ER Accession/Order Number: [id number] Exam Date: 11/15/2023 03:31 Report Date: 11/15/2023 04:11 At the request of: JOI REYES Procedure: XR chest 1V SINGLE VIEW CHEST: 11/15/2023 3:31 AM EDT CLINICAL HISTORY:syncope . Chest pain. COMPARISONS: Portable chest 09/08/2023 TECHNIQUE: Single frontal view of the chest, utilizing portable technique. Portable radiography should be considered a technically compromised study. Strongly consider dedicated PA and lateral chest radiographs, as clinically indicated. FINDINGS: LINES AND TUBES: Cardiac monitoring leads and wires overlie the patient. CARDIAC SILHOUETTE: Within normal limits. MEDIASTINAL AND HILAR CONTOUR: Within normal limits. PULMONARY PARENCHYMA AND PLEURA: No consolidation, edema, effusion, or pneumothorax. OSSEOUS STRUCTURES:Nothing significant. OTHER COMMENTS:None. XR/XR chest 1V IMPRESSION: Stable chest, with no acute radiographic findings. This report was generated with voice recognition software. Effort has been made to ensure accuracy of this report, however, occasional wording errors may persist. Please contact our office with any questions. Electronically authenticated by: CORNELIA YEAGER Date: 11/15/2023 04:11
--- NOTE | 2023-11-15 03:19 | CT_ITS ---
The [address] [address] Patient Name: SYLVIA OBANDO MRN: [id number] date: 1975 Sex: M Assigned Patient Location: ER Current Patient Location: ER Accession/Order Number: [id number] Exam Date: 11/15/2023 03:31 Report Date: 11/15/2023 04:10 At the request of: JOI REYES Procedure: CT cervical spine wo con CT CERVICAL SPINE WITHOUT : 11/15/2023 3:31 AM EDT HISTORY: Neck pain. Injury. TECHNIQUE: Thin section axial CT images were obtained from the foramen magnum to the T1 vertebral body. This CT exam was performed using one or more of the following dose reduction techniques: Automated exposure control, adjustment of the mA and/or kV according to patient size, or use of iterative reconstruction technique. Thin section coronal and sagittal images were reconstructed from the axial data set. All images were reviewed and interpreted. CONTRAST: None. COMPARISON: None. FINDINGS: There is no fracture or vertebral body height loss. There is no destructive osseous lesion. Normal anatomic alignment is maintained. There is no spondylolisthesis. There is no significant degenerative change. Osseous mineralization is within normal limits. The paraspinal soft tissues are unremarkable. There is no prevertebral soft tissue swelling. There is degenerative disc disease with disc bulging at C3-4, C4-5, C5-6 and more prominently at C6-7. Causing some mild central canal narrowing at C4-5 and C6-7 Mild bilateral neural foraminal narrowing from uncinate process hypertrophy at C4-5 and C6-7. Remaining levels are unremarkable. Lung apices are clear. CT/CT cervical spine wo con IMPRESSION: No fracture or malalignment. Electronically authenticated by: CORNELIA YEAGER Date: 11/15/2023 04:10
--- NOTE | 2023-11-15 03:19 | CT_ITS ---
The [address] [address] Patient Name: SYLVIA OBANDO MRN: [id number] date: 1975 Sex: M Assigned Patient Location: ER Current Patient Location: ER Accession/Order Number: [id number] Exam Date: 11/15/2023 03:31 Report Date: 11/15/2023 04:07 At the request of: JOI REYES Procedure: CT head/brain wo con CT OF THE BRAIN WITHOUT CONTRAST: 11/15/2023 3:31 AM EDT HISTORY: Injury. Trauma TECHNIQUE: Contiguous axially collimated images were obtained through the intracranial compartment, from the vertex through the foramen magnum. Coronal and Sagittal reformatted images were prepared on a separate workstation and reviewed on the PACS for anatomic correlation. No contrast was administered. This CT exam was performed using one or more of the following dose reduction techniques: Automated exposure control, adjustment of the mA and/or kV according to patient size, or use of iterative reconstruction technique. Thin section coronal and sagittal images were reconstructed from the axial data set. All images were reviewed and interpreted. COMPARISON: CT brain without 09/07/2023 FINDINGS: There is no intracranial hemorrhage or abnormal extra-axial fluid collection. To the extent of evaluated with noncontrast technique, there is no mass lesion appreciated. There is no mass-effect or shift of midline structures. The ventricles and CSF spaces are age appropriate. There is no evidence of hydrocephalus. There is no effacement of the basal cisterns. Hernandes white matter differentiation is well preserved throughout, without evidence of acute ischemia. There is no significant leukomalacia. The basal ganglia and thalami are unremarkable. The posterior fossa, brain stem, and fourth ventricle are normal. There is no tonsillar ectopy. The calvarium is intact, without destructive lesion or depressed fracture. The mastoid air cells are well-aerated. The paranasal sinuses are normally aerated. CT/CT head/brain wo con IMPRESSION: No acute or significant intracranial pathology. Electronically authenticated by: CORNELIA YEAGER Date: 11/15/2023 04:07
--- NOTE | 2023-11-15 03:21 | ECG_ITS ---
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
[2023-11-15 03:24] LABS: Basophils Absolute Auto 0.1 10^3/uL (0.0-0.1); Basophils Percent Auto 1.3 % (0.2-2.0); Eosinophils Absolute Auto 0.2 10^3/uL (0.0-0.7); Eosinophils Percent Auto 1.9 % (0.9-7.0); Hematocrit 48.2 % (42.0-54.0); Hemoglobin 16.1 g/dL (14.0-18.0); Immature Granulocytes Abs Auto 0.02 10^3/uL (0.00-0.03); Immature Granulocytes Pct Auto 0.2 % (0.0-0.5); Lymphocytes Absolute Auto 2.9 10^3/uL (1.2-3.8); Lymphocytes Percent Auto 30.7 % (20.5-60.0); Mean Corpuscular HGB Conc 33.4 g/dL (29.9-35.2); Mean Corpuscular Hemoglobin 30.4 pg (25.9-34.0); Mean Corpuscular Volume 90.9 fL (80.0-94.0); Monocytes Absolute Auto 0.6 10^3/uL (0.3-0.8); Monocytes Percent Auto 6.3 % (1.7-12.0); Neutrophils Absolute Auto 5.5 10^3/uL (1.4-6.5); Neutrophils Percent Auto 59.6 % (43.0-75.0); Platelet Count 415 10^3/uL (150-450); Red Cell Distribution Width 13.9 % (11.0-15.0); White Blood Count 9.3 10^3/uL (4.0-11.0)
[2023-11-15 03:34] LABS: D Dimer 0.23 mg/L FEU (<=0.59)
[2023-11-15 03:42] LABS: Anion Gap 13.8; BUN Creatinine Ratio 14.3; Calcium 9.7 mg/dL (8.5-10.1); Carbon Dioxide 26.7 mmol/L (21.0-32.0); Chloride 104 mmol/L (98-107); Estimated GFR (African America >60 (>=60); Estimated GFR (Non-African Ame >60 (>=60); Glucose 103 mg/dL (74-106); Potassium 3.5 mmol/L (3.5-5.1); Sodium 141 mmol/L (136-145); Troponin I High Sensitivity 5.2 pg/mL (4.0-76.1)
--- OUTSIDE RECORDS SUMMARY | 2023-11-15 04:24 | XMS_ITS | CCD ---
Author Organization [facility] Care Team Providers Care Basic Acoustic Analyst Name Role Phone REQUEST, DR NONE LISTED Primary Care Unavaila ble AMY, JOI Admitting Unavailable AMY, JOI Attending Unavailable AMY, JOI Consulting Unavailable REQUEST, NONE LISTED Primary Care Unavaila ble AMY, JOI Admitting Unavailable AMY, JOI Attending Unavailable MICHAEL ., KENNEDY ROBERT Consulting Unavailabl e AMY, JOI Consulting Unavailable NONI MOISE Consulting Unavailable REQUEST, NONE LISTED Primary Care Unavaila ble HAY ., DR NESBITT Admitting Unavailable HAY [...] Care Unavailable RINTO, RON E. Attending Unavailable RONEY CHRISTENSEN Admitting Unavailable INPATIENT, TELENEUROLOGY Consulting Unavail able RINTO, RON E. Attending Unavailable RINTO, RON [...] Primary Care Unavailable Barak Lawson Attending Unavailab Barak Mead Admitting Unavailab le Allergies Allergy Classification Reported Allergen(s) Allergy Type Date of Onset Reaction(s) Facility (1 source) Iodine (And Iodine Containting Drugs) Drug allergy (disorder) 02-17-2022 [facility] Repository (1 source) Shellfish Drug allergy (disorder) 02-17-2022 [facility] Repository (1 source) Povidone-Iodine; Translations: [POVIDONE-IODINE [...] 08-13-2023 Episodic Other aftercare (1 source) Other director long term care (current) drug therapy; Translations: [OTH HALF-WAY CURRENT DRUG THERAPY] Onset: 08-29-2022 Episodic Other [...] Range Facility CBC AND AUTO DIFFon 08-14-19 24 ABSOLUTE BASOPHIL 0.1 X10E9/L Normal 0.0-0.2 [facility] Comment on above: Performed By: #### C JALIL, BMP #### [facility] ([id number]) [address] [place] [address] 49841 ABSOLUTE NEUTROPHIL 4.6 X10E9/L Normal 1.5-6.6 [facility] Comment on above: Performed By: #### C JALIL, BMP #### [facility] ([id number]) [address] [place] [address] 75757 Basophils/100 WBC (Bld) 1.2 % Normal [facility] Comment on above: Performed By: #### C JALIL, BMP #### [facility] ([id number]) [address] [place] [address] 57380 Eosinophils (Bld) [#/Vol] 0.1 10*3/uL Normal 0.0-0.4 [facility] Comment on above: Performed By: #### C JALIL, BMP #### [facility] ([id number]) [address] [place] [address] 53433 Eosinophils/100 WBC (Bld) 1.7 % Normal [facility] Comment on above: Performed By: #### C JALIL, BMP #### [facility] ([id number]) [address] [place] [address] 15455 Erythrocyte distribution width (RBC) [Ratio] 14.4 % Normal 11.5-15.0 [facility] Comment on above: Performed By: #### C JALIL, BMP #### [facility] ([id number]) [address] [place] [address] 57857 Hematocrit (Bld) [Volume fraction] 46.6 % Normal 39-49 [facility] Comment on above: Performed By: #### C JALIL, BMP #### [facility] ([id number]) [address] [place] [address] 12169 Hemoglobin (Bld) [Mass/Vol] 15.9 g/dL Normal 13.0-17.0 [facility] Comment on above: Performed By: #### C JALIL, BMP #### [facility] ([id number]) [address] [place] [address] 10053 Lymphocytes (Bld) [#/Vol] 2.9 10*3/uL Normal 1.0-3.5 [facility] Comment on above: Performed By: #### C JALIL, BMP #### [facility] ([id number]) [address] [place] [address] 81758 Lymphocytes/100 WBC (Bld) 33.3 % Normal [facility] Comment on above: Performed By: #### C JALIL, BMP #### [facility] ([id number]) [address] [place] [address] 94970 MCH (RBC) [Entitic mass] 30.7 pg Normal 27-34 [facility] Comment on above: Performed By: #### C JALIL, BMP #### [facility] ([id number]) [address] [place] [address] [place] [address] MCHC (RBC) [Mass/Vol] 34.0 g/dL Normal 32-36 [facility] Comment on above: Performed By: #### C JALIL, BMP #### [facility] ([id number]) [address] [place] [address] 40982 MCV (RBC) [Entitic vol] 90 fL Normal 80-100 [facility] Comment on above: Performed By: #### C JALIL, BMP #### [facility] ([id number]) [address] [place] [address] 64683 Monocytes (Bld) [#/Vol] 0.8 10*3/uL Normal 0-0.9 [facility] Comment on above: Performed By: #### C JALIL, BMP #### [facility] ([id number]) [address] [place] [address] 14113 Monocytes/100 WBC (Bld) 9.7 % Normal [facility] Comment on above: Performed By: #### C JALIL, BMP #### [facility] ([id number]) [address] [place] [address] 46396 Neutrophils/100 WBC (Bld) 54.1 % Normal [facility] Comment on above: Performed By: #### C JALIL, BMP #### [facility] ([id number]) [address] [place] [address] 42211 Platelet mean volume (Bld) [Entitic vol] 8.5 fL Normal 7-12 [facility] Comment on above: Performed By: #### C BCA, BMP #### [facility] ([id number]) [address] [place] [address] 51748 Platelets (Bld) [#/Vol] 360 10*3/uL Normal 150-450 [facility] Comment on above: Performed By: #### C BCA, BMP #### [facility] ([id number]) [address] [place] [address] 80514 RBC COUNT 5.17 X10E12/L Normal 4.10-5.70 [facility] Comment on above: Performed By: #### C JALIL, BMP #### [facility] ([id number]) [address] [place] [address] 67231 WBC (Bld) [#/Vol] 8.6 10*3/uL Normal 4.0-11.0 [facility] Comment on above: Performed By: #### C BCA, BMP #### [facility] ([id number]) [address] [place] [address] 71649 COMPREHENSIVE METABOLIC PANE [facility] 08-14-2023 Albumin [Mass/Vol] 4.0 g/dL Normal 3.2-5.3 [facility] Comment on above: Performed By: #### C BCA, BMP #### [facility] ([id number]) [address] [place] [address] 08976 ALP [Catalytic activity/Vol] 78 U/L Normal 39-130 [facility] Comment on above: Performed By: #### C BCA, BMP #### [facility] ([id number]) [address] [place] [address] 37160 ALT [Catalytic activity/Vol] 14 U/L Normal 0-40 [facility] Comment on above: Performed By: #### C BCA, BMP #### [facility] ([id number]) [address] [place] [address] 08726 Anion gap [Moles/Vol] 10 mmol/L Normal 5-15 [facility] Comment on above: Performed By: #### C BCA, BMP #### [facility] ([id number]) [address] [place] [address] 21979 AST [Catalytic activity/Vol] 19 U/L Normal 0-41 [facility] Comment on above: Performed By: #### C BCA, BMP #### [facility] ([id number]) [address] [place] [address] 77174 Bilirubin [Mass/Vol] 0.6 mg/dL Normal 0.3-1.2 [facility] Comment on above: Performed By: #### C BCA, BMP #### [facility] ([id number]) [address] [place] [address] 07984 Calcium [Mass/Vol] 9.0 mg/dL Normal 8.5-10.5 [facility] Comment on above: Performed By: #### C BCA, BMP #### [facility] ([id number]) [address] [place] [address] 12064 Chloride [Moles/Vol] 102 mmol/L Normal 98-109 [facility] Comment on above: Performed By: #### C BCA, BMP #### [facility] ([id number]) [address] [place] [address] 26052 CO2 [Moles/Vol] 24 mmol/L Normal 22-32 [facility] Comment on above: Performed By: #### C BCA, BMP #### [facility] ([id number]) [address] [place] [address] 43804 Creatinine [Mass/Vol] 1.12 mg/dL Normal 0.70-1.20 [facility] Comment on above: Result Comment: METH OD TRACEABLE TO IDMS STANDARD Performed By: #### C BCA, BMP #### [facility] ([id number]) [address] [place] [address] 84468 GFR/1.73 sq M.predicted among non-blacks MDRD (S/P/Bld) [Vol rate/Area] 81 mL/min/{1.73_m2} Normal >59 [facility] Comment on above: Result Comment: Reported eGFR is based on the CKD-EPI 2020 equation that does not use a race coefficient. Performed By: #### C BCA, BMP #### [facility] ([id number]) [address] [place] [address] 62530 Glucose [Mass/Vol] 101 mg/dL High 65-99 [facility] Comment on above: Performed By: #### C BCA, BMP #### [facility] ([id number]) [address] [place] [address] 96866 Potassium [Moles/Vol] 4.0 mmol/L Normal 3.5-5.0 [facility] Comment on above: Performed By: #### C BCA, BMP #### [facility] ([id number]) [address] [place] [address] 25898 Protein [Mass/Vol] 7.7 g/dL Normal 6.0-8.0 [facility] Comment on above: Performed By: #### C BCA, BMP #### [facility] ([id number]) [address] [place] [address] 93827 Sodium [Moles/Vol] 136 mmol/L Normal 134-146 [facility] Comment on above: Performed By: #### C BCA, BMP #### [facility] ([id number]) [address] [place] [address] 97651 Urea nitrogen [Mass/Vol] 18 mg/dL Normal 5-23 [facility] Comment on above: Performed By: #### C BCA, BMP #### [facility] ([id number]) [address] [place] [address], [place] [address] XR CHEST 1 VWon 08-14-2023 XR CHEST 1 VW XR CHEST 1 VW Clinical history: Seizure disorder Views: 1 Comparison: 08/13/2023 Findings/Impression: 1. No acute infiltrate. No volume loss nor consolidation. There is no pleural effusion, pneumothorax, nor volume loss. Heart and mediastinal structures are unremarkable. Pulmonary vasculature stable. 2. No significant change Finalized by Ayush Naranjo MD on 08/14/2023 6:22 AM Normal [facility] levETIRAcetam [Mass/Vol]on 0 08-14-2023 LEVETIRACETAM See Below Normal [facility] Comment on above: Result Comment: NOTE [...] developed and its performance characteristics determined by [facility] Pathology [facility] Laboratory [facility] [place] ([facility] It has not been cleared or approved by the FDA. -[facility] is regulated under CLIA as qualified to perform high-complexity testing. This test is used for clinical purposes. It should not be regarded as investigational or for research. Test Performed By: [facility] [address] [place] [address] Cancer Registry Manager: Lamont Craft III, M.D. CLIA #[id number] Performed By: #### C JALIL, BMP #### [facility] ([id number]) [address] [place] [address] 41402 CBC AND AUTO DIFFon 08-13-19 24 ABSOLUTE BASOPHIL 0.1 X10E9/L Normal 0.0-0.2 [facility] Comment on above: Performed By: #### 1 39-9, , CBCA, 97197-1, CMP #### [facility] ([id number]) [address] [place] [address] 86521 ABSOLUTE NEUTROPHIL 4.5 X10E9/L Normal 1.5-6.6 [facility] Comment on above: Performed By: #### 1 39-9, , CBCA, 56264-2, CMP #### [facility] ([id number]) [address] [place] [address] 70333 Basophils/100 WBC (Bld) 1.4 % Normal [facility] Comment on above: Performed By: #### 1 9, , CBCA, 69588-7, CMP #### [facility] ([id number]) [address] [place] [address] 47817 Eosinophils (Bld) [#/Vol] 0.1 10*3/uL Normal 0.0-0.4 [facility] Comment on above: Performed By: #### 1 39-9, , CBCA, 02719-7, CMP #### [facility] ([id number]) [address] [place] [address] 98071 Eosinophils/100 WBC (Bld) 1.1 % Normal [facility] Comment on above: Performed By: #### 1 39-9, , CBCA, 59764-0, CMP #### [facility] ([id number]) [address] [place] [address] 36773 Erythrocyte distribution width (RBC) [Ratio] 14.4 % Normal 11.5-15.0 [facility] Comment on above: Performed By: #### 1 838-9, , CBCA, 57985-0, CMP #### [facility] ([id number]) [address] [place] [address] 54135 Hematocrit (Bld) [Volume fraction] 49.5 % High 39-49 [facility] Comment on above: Performed By: #### 1 838-9, , CBCA, 10537-0, CMP #### [facility] ([id number]) [address] [place] [address] 84359 Hemoglobin (Bld) [Mass/Vol] 17.3 g/dL High 13.0-17.0 [facility] Comment on above: Performed By: #### 1 838-9, , CBCA, 40540-7, CMP #### [facility] ([id number]) [address] [place] [address] 98996 Lymphocytes (Bld) [#/Vol] 2.0 10*3/uL Normal 1.0-3.5 [facility] Comment on above: Performed By: #### 1 9, , CBCA, 50068-3, CMP #### [facility] ([id number]) [address] [place] [address] 57657 Lymphocytes/100 WBC (Bld) 27.2 % Normal [facility] Comment on above: Performed By: #### 1 838-9, , CBCA, 95376-5, CMP #### [facility] ([id number]) [address] [place] [address] 71419 MCH (RBC) [Entitic mass] 31.3 pg Normal 27-34 [facility] Comment on above: Performed By: #### 1 39-9, , CBCA, 25873-8, CMP #### [facility] ([id number]) [address] [place] [address] 66247 MCHC (RBC) [Mass/Vol] 35.0 g/dL Normal 32-36 [facility] Comment on above: Performed By: #### 1 39-9, , CBCA, 28471-9, CMP #### [facility] ([id number]) [address] [place] [address] 27402 MCV (RBC) [Entitic vol] 89 fL Normal 80-100 [facility] Comment on above: Performed By: #### 1 39-9, , CBCA, 06152-3, CMP #### [facility] ([id number]) [address] [place] [address] 29852 Monocytes (Bld) [#/Vol] 0.5 10*3/uL Normal 0-0.9 [facility] Comment on above: Performed By: #### 1 9, , CBCA, 29814-8, CMP #### [facility] ([id number]) [address] [place] [address] 97625 Monocytes/100 WBC (Bld) 7.5 % Normal [facility] Comment on above: Performed By: #### 1 399, , CBCA, 58893-9, CMP #### [facility] ([id number]) [address] [place] [address] 96402 Neutrophils/100 WBC (Bld) 62.8 % Normal [facility] Comment on above: Performed By: #### 1 39-9, , CBCA, 09588-2, CMP #### [facility] ([id number]) [address] [place] [address] 86015 Platelet mean volume (Bld) [Entitic vol] 8.5 fL Normal 7-12 [facility] Comment on above: Performed By: #### 1 9, , CBCA, 90544-1, CMP #### [facility] ([id number]) [address] [place] [address] 96935 Platelets (Bld) [#/Vol] 409 10*3/uL Normal 150-450 [facility] Comment on above: Performed By: #### 1 39-9, , CBCA, 88792-5, CMP #### [facility] ([id number]) [address] [place] [address] 26151 RBC COUNT 5.54 X10E12/L Normal 4.10-5.70 [facility] Comment on above: Performed By: #### 1 838-9, , CBCA, 75875-3, CMP #### [facility] ([id number]) [address] [place] [address] 79909 WBC (Bld) [#/Vol] 7.2 10*3/uL Normal 4.0-11.0 [facility] Comment on above: Performed By: #### 1 39-9, , CBCA, 38087-1, CMP #### [facility] ([id number]) [address] [place] [address] 05405 COMPREHENSIVE METABOLIC PANE She[facility]on 08-13-2023 Albumin [Mass/Vol] 5.4 g/dL High 3.2-5.3 [facility] Comment on above: Performed By: #### 1 39-9, , CBCA, 53099-8, CMP #### [facility] ([id number]) [address] [place] [address] 90396 ALP [Catalytic activity/Vol] 92 U/L Normal 39-130 [facility] Comment on above: Performed By: #### 1 39-9, , CBCA, 37601-9, CMP #### [facility] ([id number]) [address] [place] [address] 20753 ALT [Catalytic activity/Vol] 18 U/L Normal 0-40 [facility] Comment on above: Performed By: #### 1 838-9, , CBCA, 53105-1, CMP #### [facility] ([id number]) [address] [place] [address] 96582 Anion gap [Moles/Vol] 10 mmol/L Normal 5-15 [facility] Comment on above: Performed By: #### 1 39-9, , CBCA, 44391-3, CMP #### [facility] ([id number]) [address] [place] [address] 35516 AST [Catalytic activity/Vol] 21 U/L Normal 0-41 [facility] Comment on above: Performed By: #### 1 39-9, , CBCA, 54057-7, CMP #### [facility] ([id number]) [address] [place] [address] 15559 Bilirubin [Mass/Vol] 0.5 mg/dL Normal 0.3-1.2 [facility] Comment on above: Performed By: #### 1 838-9, , CBCA, 08054-2, CMP #### [facility] ([id number]) [address] [place] [address] 52041 Calcium [Mass/Vol] 9.9 mg/dL Normal 8.5-10.5 [facility] Comment on above: Performed By: #### 1 39-9, , CBCA, 91529-2, CMP #### [facility] ([id number]) [address] [place] [address] 28591 Chloride [Moles/Vol] 101 mmol/L Normal 98-109 [facility] Comment on above: Performed By: #### 1 39-9, , CBCA, 27658-9, CMP #### [facility] ([id number]) [address] [place] [address] 17946 CO2 [Moles/Vol] 25 mmol/L Normal 22-32 [facility] Comment on above: Performed By: #### 1 0839-9, , CBCA, 07480-7, CMP #### [facility] ([id number]) [address] [place] [address] 78303 Creatinine [Mass/Vol] 0.98 mg/dL Normal 0.70-1.20 [facility] Comment on above: Result Comment: METH OD TRACEABLE TO IDMS STANDARD Performed By: #### 1 39-9, , CBCA, 83168-3, CMP #### [facility] ([id number]) [address] [place] [address] 20003 eGFR (CKD-EPI) NON-RACE DEPENDENT >90 Normal >59 [facility] Comment on above: Result Comment: Reported eGFR is based on the CKD-EPI 2020 equation that does not use a race coefficient. Performed By: #### 1 39-9, , CBCA, 48052-6, CMP #### [facility] ([id number]) [address] [place] [address] 63388 Glucose [Mass/Vol] 90 mg/dL Normal 65-99 [facility] Comment on above: Performed By: #### 1 39-9, , CBCA, 40221-4, CMP #### [facility] ([id number]) [address] [place] [address] 85347 Potassium [Moles/Vol] 4.2 mmol/L Normal 3.5-5.0 [facility] Comment on above: Performed By: #### 1 0839-9, 55089-0, CBCA, 40534-8, CMP #### [facility] ([id number]) [address] [place] [address] Protein [Mass/Vol] 9.9 g/dL High 6.0-8.0 [facility] Comment on above: Performed By: #### 1 0839-9, 99137-8, CBCA, 27690-5, CMP #### [facility] ([id number]) [address] [place] [address] Sodium [Moles/Vol] 136 mmol/L Normal 134-146 [facility] Comment on above: Performed By: #### 1 0839-9, 40113-7, CBCA, 80714-4, CMP #### [facility] ([id number]) [address] [place] [address] 36950 Urea nitrogen [Mass/Vol] 19 mg/dL Normal 5-23 [facility] Comment on above: Performed By: #### 1 0839-9, 09635-3, CBCA, 47518-3, CMP #### [facility] ([id number]) [address] [place] [address] BRAIN WO CONTon CT BRAIN WO [...] Baltazar Navarrete DO on 08/13/2023 3:44 AM I, Honorio Sherman MD have personally reviewed the image(s) and agree with and/or edited the report Finalized by Honorio Sherman MD on 08/13/2023 3:51 AM Normal [facility] DRUG SCREEN, URINEon 024 AMPHETAMINE/METHAMP Negative Normal NEG [facility] Comment on above: Result Comment: AMPH /METH screening cut off = 1000 ng/mL Performed By: #### C BCA, BMP #### [facility] ([id number]) [address] [place] [address] BARBITURATES Negative Normal NEG [facility] Comment on above: Result Comment: Lou iturates screening cut off value = 200 ng/mL Performed By: #### C BCA, BMP #### [facility] ([id number]) [address] [place] [address] BENZODIAZEPINES Positive Abnormal NEG [facility] Comment on above: Result Comment: Conf irmation available upon request. Benzodiazepines screening cut off value = 200 ng/mL Performed By: #### C BCA, BMP #### [facility] ([id number]) [address] [place] [address] CANNABINOIDS Positive Abnormal NEG [facility] Comment on above: Result Comment: Conf irmation available upon request. Cannabinoids/THC screening cut off value = 50 ng/mL Performed By: #### C BCA, BMP #### [facility] ([id number]) [address] [place], [place] [address] COCAINE METABOLITE Negative Normal NEG [facility] Comment on above: Result Comment: Coca ine screening cut off value = 300 ng/mL Performed By: #### C BCA, BMP #### [facility] ([id number]) [address] [place] [address] ECSTASY Negative Normal NEG [facility] Comment on above: Result Comment: Ecst asy screening cut off value = 500 ng/mL This report is intended for use in clinical monitoring or management of patients. Performed By: #### C JALIL, BMP #### [facility] ([id number]) [address] [place] [address] 63181 METHADONE Negative Normal NEG [facility] Comment on above: Result Comment: Meth adone screening cut off value = 300 ng/mL. Performed By: #### C JALIL, BMP #### [facility] ([id number]) [address] [place] [address] 72369 OPIATES Negative Normal [facility] Comment on above: Result Comment: Opia andrés screening cut off value = 300 ng/mL NOTE: This test is used for the detection of codeine, hydrocodone (>1000 ng/mL), morphine and hydromorphone (>900 ng/mL) in urine. Performed By: #### C JALIL, BMP #### [facility] ([id number]) [address] [place] [address] 51067 OXYCODONE Negative Normal [facility] [facility] Comment on above: Result Comment: Oxyc odone screening cut off value = 300 ng/mL NOTE: This test is used for the detection of oxycodone and oxymorphone in urine. Performed By: #### C JALIL, BMP #### [facility] ([id number]) [address] [place] [address] 61162 PHENCYCLIDINE Negative Normal [facility] Comment on above: Result Comment: Phen cyclidine screening cut off value = 25 ng/mL Performed By: #### C JALIL, BMP #### [facility] ([id number]) [address] [place] [address] 25732 Glucose Glucometer (BldC) [M ass/Vol]on 08-13-2023 Glucose [Mass/Vol] 85 mg/dL Normal 65-[facility] Lactate (P juve) [Moles/Vol]o n 08-13-2023 LACTATE W/REFLEX 1.4 mmol/L Normal 0.4-2.0 [facility] Comment on above: Result Comment: Result did not trigger repeat Lactate, re-order if needed. Performed By: #### 1 0839-9, 60911-8, CBCA, 28205-2, CMP #### [facility] ([id number]) [address] [place] [address] 48842 MAGNESIUMon 08-13-2023 Magnesium [Mass/Vol] 2.0 mg/dL Normal 1.8-2.6 [facility] Comment on above: Performed By: #### 1 0839-9, 41059-3, CBCA, 42407-4, CMP #### [facility] ([id number]) [address] [place] [address] 49258 PLATELET COUNT AND MPVon Platelet mean volume (Bld) [Entitic vol] 8.2 fL Normal 7-12 [facility] Comment on above: Performed By: #### C JALIL, BMP #### [facility] ([id number]) [address] [place] [address] 54308 Platelets (Bld) [#/Vol] 322 10*3/uL Normal 150-450 [facility] Comment on above: Performed By: #### C JALIL, BMP #### [facility] ([id number]) [address] [place] [address] 36692 Prolactin [Mass/Vol]on 08-13 PROLACTIN 11.4 ng/mL Normal 2.6-13.1 [facility] Comment on above: Performed By: #### C BCA, BMP #### [facility] ([id number]) [address] [place] [address] 14714 TROPONIN Ion 08-13-2023 Troponin I.cardiac [Mass/Vol] ng/mL Normal 0.00-0.04 [facility] Comment on above: Performed By: #### 1 0839-9, 49435-3, CBCA, 61471-2, CMP #### [facility] ([id number]) [address] [place] [address] [place] [address] URN MACROSCOPIC NURon 2023 BILIRUBIN JAS Negative Normal NEG [facility] Comment on above: Performed By: #### N UM #### [facility] ([id number]) [address] [place] [address] [place] [address] BLOOD/HGB JAS Negative Normal NEG [facility] Comment on above: Performed By: #### N UM #### [facility] ([id number]) [address] [place] [address] [place] [address] GLUCOSE JAS Negative Normal NEG [facility] Comment on above: Performed By: #### N UM #### [facility] ([id number]) [address] [place] [address] [place] [address] KETONES JAS Negative Normal NEG [facility] Comment on above: Performed By: #### N UM #### [facility] ([id number]) [address] [place] [address] [place] [address] LEUKOCYTE ESTERASE JAS Negative Normal NEG [facility] Comment on above: Performed By: #### N UM #### [facility] ([id number]) [address] [place] [address] [place] [address] NITRITE JAS Negative Normal NEG [facility] Comment on above: Performed By: #### N UM #### [facility] ([id number]) [address] [place] [address] [place] [address] PH JAS 7.5 Normal 5.0-8.5 [facility] Comment on above: Performed By: #### N UM #### [facility] ([id number]) [address] [place] [address] 02410 PROTEIN JAS Negative Normal NEG [facility] Comment on above: Performed By: #### N UM #### [facility] ([id number]) [address] [place] [address] 78899 SPECIFIC GRAVITY JAS 1.015 Normal 1.003-1.035 [facility] Comment on above: Performed By: #### N UM #### [facility] ([id number]) [address] [place] [address] 94793 UROBILINOGEN JAS 0.2 eu/dL Normal <1.1 [facility] Comment on above: Performed By: #### N UM #### [facility] ([id number]) [address] [place] [address] 63059 XR CHEST 1 VWon 08-13-2023 XR CHEST [...] Sherman MD on 08/13/2023 1:55 AM Normal [facility] BASIC METABOLIC PANLon 08-07 Anion gap [Moles/Vol] 7 mmol/L Normal 5-15 [facility] Comment on above: Performed By: #### C JALIL, BMP #### [facility] ([id number]) [address] [place] [address] 69477 Calcium [Mass/Vol] 9.3 mg/dL Normal 8.5-10.5 [facility] Comment on above: Performed By: #### C JALIL, BMP #### [facility] ([id number]) [address] [place] [address] 18051 Chloride [Moles/Vol] 102 mmol/L Normal 98-109 [facility] Comment on above: Performed By: #### C JALIL, BMP #### [facility] ([id number]) [address] [place] [address] 41682 CO2 [Moles/Vol] 25 mmol/L Normal 22-32 [facility] Comment on above: Performed By: #### C BCA, BMP #### [facility] ([id number]) [address] [place] [address] 23559 Creatinine [Mass/Vol] 1.04 mg/dL Normal 0.70-1.20 [facility] Comment on above: Result Comment: METH OD TRACEABLE TO IDMS STANDARD Performed By: #### C JALIL, BMP #### [facility] ([id number]) [address] [place] [address] 34564 GFR/1.73 sq M.predicted among non-blacks MDRD (S/P/Bld) [Vol rate/Area] 89 mL/min/{1.73_m2} Normal >59 [facility] Comment on above: Result Comment: Reported eGFR is based on the CKD-EPI 1 equation that does not use a race coefficient. Performed By: #### C JALIL, BMP #### [facility] ([id number]) [address] [place] [address] 96032 Glucose [Mass/Vol] 98 mg/dL Normal 65-99 [facility] Comment on above: Performed By: #### C JALIL, BMP #### [facility] ([id number]) [address] [place] [address] 26502 Potassium [Moles/Vol] 4.0 mmol/L Normal 3.5-5.0 [facility] Comment on above: Performed By: #### C BCA, BMP #### [facility] ([id number]) [address] [place] [address] 62647 Sodium [Moles/Vol] 134 mmol/L Normal 134-146 [facility] Comment on above: Performed By: #### C BCA, BMP #### [facility] ([id number]) [address] [place] [address] 70224 Urea nitrogen [Mass/Vol] 18 mg/dL Normal 5-23 [facility] Comment on above: Performed By: #### C JALIL, BMP #### [facility] ([id number]) [address] [place] [address] 35595 CBC AND AUTO DIFFon 08-07-19 24 ABSOLUTE BASOPHIL 0.1 X10E9/L Normal 0.0-0.2 [facility] Comment on above: Performed By: #### C JALIL, BMP #### [facility] ([id number]) [address] [place] [address] 82019 ABSOLUTE NEUTROPHIL 7.5 X10E9/L High 1.5-6.6 [facility] Comment on above: Performed By: #### Maegan JIMENES, BMP #### [facility] ([id number]) [address] [place] [address] 71998 Basophils/100 WBC (Bld) 1.1 % Normal [facility] Comment on above: Performed By: #### Maegan JIMENES, BMP #### [facility] ([id number]) [address] [place] [address] 88247 Eosinophils (Bld) [#/Vol] 0.1 10*3/uL Normal 0.0-0.4 [facility] Comment on above: Performed By: #### Maegan JIMENES, BMP #### [facility] ([id number]) [address] [place] [address] 93093 Eosinophils/100 WBC (Bld) 0.6 % Normal [facility] Comment on above: Performed By: #### Maegan JIMENES, BMP #### [facility] ([id number]) [address] [place] [address] 57677 Erythrocyte distribution width (RBC) [Ratio] 14.5 % Normal 11.5-15.0 [facility] Comment on above: Performed By: #### C JALIL, BMP #### [facility] ([id number]) [address] [place] [address] 27616 Hematocrit (Bld) [Volume fraction] 42.1 % Normal 39-49 [facility] Comment on above: Performed By: #### C BCA, BMP #### [facility] ([id number]) [address] [place] [address] 38979 Hemoglobin (Bld) [Mass/Vol] 14.7 g/dL Normal 13.0-17.0 [facility] Comment on above: Performed By: #### C JALIL, BMP #### [facility] ([id number]) [address] [place] [address] 13373 Lymphocytes (Bld) [#/Vol] 1.3 10*3/uL Normal 1.0-3.5 [facility] Comment on above: Performed By: #### C JALIL, BMP #### [facility] ([id number]) [address] [place] [address] 07101 Lymphocytes/100 WBC (Bld) 13.6 % Normal [facility] Comment on above: Performed By: #### C JALIL, BMP #### [facility] ([id number]) [address] [place] [address] 92970 MCH (RBC) [Entitic mass] 31.1 pg Normal 27-34 [facility] Comment on above: Performed By: #### C JALIL, BMP #### [facility] ([id number]) [address] [place] [address] 52395 MCHC (RBC) [Mass/Vol] 34.9 g/dL Normal 32-36 [facility] Comment on above: Performed By: #### C BCA, BMP #### [facility] ([id number]) [address] [place] [address] 78838 MCV (RBC) [Entitic vol] 89 fL Normal 80-100 [facility] Comment on above: Performed By: #### C JALIL, BMP #### [facility] ([id number]) [address] [place] [address] 46695 Monocytes (Bld) [#/Vol] 0.7 10*3/uL Normal 0-0.9 [facility] Comment on above: Performed By: #### C JALIL, BMP #### [facility] ([id number]) [address] [place] [address] 02901 Monocytes/100 WBC (Bld) 6.9 % Normal [facility] Comment on above: Performed By: #### C JALIL, BMP #### [facility] ([id number]) [address] [place] [address] 62776 Neutrophils/100 WBC (Bld) 77.8 % Normal [facility] Comment on above: Performed By: #### C JALIL, BMP #### [facility] ([id number]) [address] [place] [address] 85691 Platelet mean volume (Bld) [Entitic vol] 7.6 fL Normal 7-12 [facility] Comment on above: Performed By: #### C JALIL, BMP #### [facility] ([id number]) [address] [place] [address] 97115 Platelets (Bld) [#/Vol] 369 10*3/uL Normal 150-450 [facility] Comment on above: Performed By: #### C JALIL, BMP #### [facility] ([id number]) [address] [place] [address] 11675 RBC COUNT 4.73 X10E12/L Normal 4.10-5.70 [facility] Comment on above: Performed By: #### C JALIL, BMP #### [facility] ([id number]) [address] [place] [address] 57018 WBC (Bld) [#/Vol] 9.6 10*3/uL Normal 4.0-11.0 [facility] Comment on above: Performed By: #### C JALIL, JUAN #### [facility] ([id number]) [address] [place] [address], [place] [address] CT BRAIN WO CONTon 4 CT BRAIN [...] Smith MD on 08/07/2023 6:27 PM Normal [facility] XR WRIST LT MIN 3 Von 2022 XR WRIST LT MIN 3 V EXAM: XR WRIST LT AZ N 3 V HISTORY: Wrist pain COMPARISON: None. TECHNIQUE: 3 views FINDINGS: No osseous lesion, fracture, dislocation or subluxation. Joint spaces are normal. No visualized effusion. No visualized soft tissue edema. IMPRESSION: Normal x-rays Electronically authenticated by: NONI MOISE Date: 2022-11-16 20:44 Normal [facility] CBC AUTO DIFFon 05-26-2022 BASO # 0.1 103/ul Normal 0.0-0.1 [facility] Comment on above: Performed By: #### C BC #### [facility] [address] [place], [place] [address] Dr. Liudmila Edmondson Basophils/100 WBC (Bld) 1.2 % Normal 0.2-2.0 [facility] Comment on above: Performed By: #### C BC #### [facility] [address] [place], [place] [address] Dr. Liudmila Edmondson EO # 0.4 103/ul Normal 0.0-0.7 [facility] Comment on above: Performed By: #### C BC #### [facility] [address] [place] [address] Dr. Liudmila Edmondson Eosinophils/100 WBC (Bld) 4.3 % Normal 0.9-7.0 [facility] Comment on above: Performed By: #### C BC #### [facility] [address] [place] [address] Dr. Liudmila Edmondson Erythrocyte distribution width (RBC) [Ratio] 13.4 % Normal 11.0-15.0 [facility] Comment on above: Performed By: #### C BC #### [facility] [address] [place] [address] Dr. Liudmila Edmondson Hematocrit (Bld) [Volume fraction] 42.4 % Normal 42.0-54.0 [facility] Comment on above: Performed By: #### C BC #### [facility] [address] [place] [address] Dr. Liudmila Edmondson Hemoglobin (Bld) [Mass/Vol] 15.1 g/dL Normal 14.0-18.0 [facility] Comment on above: Performed By: #### C BC #### [facility] [address] [place] [address] Dr. Liudmila Edmondson IG # 0.02 10e3/ul Normal 0.00-0.03 [facility] Comment on above: Performed By: #### C BC #### [facility] [address] [place] [address] Dr. Liudmila Edmondson IG % 0.2 % Normal 0.0-0.5 [facility] Comment on above: Performed By: #### C BC #### [facility] [address] [place] [address] Dr. Liudmila Edmondson LYMPH # 2.4 103/ul Normal 1.2-3.8 [facility] Comment on above: Performed By: #### C BC #### [facility] [address] [place] [address] Dr. Liudmila Edmondson Lymphocytes/100 WBC (Bld) 24.6 % Normal 20.5-60.0 [facility] Comment on above: Performed By: #### C BC #### [facility] [address] [place] [address] Dr. Liudmila Edmondson MANUAL DIFF REQ NO Normal [facility] Comment on above: Performed By: #### C BC #### [facility] [address] [place] [address] Dr. Liudmila Edmondson MCH (RBC) [Entitic mass] 30.7 pg Normal 25.9-34.0 [facility] Comment on above: Performed By: #### C BC #### [facility] [address] [place] [address] Dr. Liudmila Edmondson MCHC (RBC) [Mass/Vol] 35.6 g/dL Critically high 29.9-35.2 [facility] Comment on above: Performed By: #### C BC #### [facility] [address] [place] [address] Dr. Liudmila Edmondson MCV (RBC) [Entitic vol] 86.2 fL Normal 80.0-94.0 [facility] Comment on above: Performed By: #### C BC #### [facility] [address] [place] [address] Dr. Liudmila Edmondson MONO # 0.7 103/ul Normal 0.3-0.8 [facility] Comment on above: Performed By: #### C BC #### [facility] [address] [place] [address] Dr. Liudmila Edmondson Monocytes/100 WBC (Bld) 7.1 % Normal 1.7-12.0 [facility] Comment on above: Performed By: #### C BC #### [facility] [address] [place] [address] Dr. Liudmila Edmondson NEUT # 6.0 103/ul Normal 1.4-6.5 [facility] Comment on above: Performed By: #### C BC #### [facility] [address] [place] [address] Dr. Liudmila Edmondson Neutrophils/100 WBC (Bld) 62.6 % Normal 43.0-75.0 [facility] Comment on above: Performed By: #### C BC #### [facility] [address] [place] [address] Dr. Liudmila Edmondson Platelet mean volume (Bld) [Entitic vol] 9.4 fL Critically low 9.5-13.5 [facility] Comment on above: Performed By: #### C BC #### [facility] [address] [place] [address] Dr. Liudmila Edmondson PLT 328 103/ul Normal 150-450 [facility] Comment on above: Performed By: #### C BC #### [facility] [address] [place] [address] Dr. Liudmila Edmondson RBC 4.92 106/ul Normal 4.70-6.10 [facility] Comment on above: Performed By: #### C BC #### [facility] [address] [place] [address] Dr. Liudmila Edmondson WBC 9.7 103/ul Normal 4.0-11.0 [facility] Comment on above: Performed By: #### C BC #### [facility] [address] [place] [address] Dr. Liudmila Edmondson CRPon 05-26-2022 CRP [Mass/Vol] mg/L Critically high <=1.0 [facility] Comment on above: Performed By: #### C RP, BMP #### [facility] [address] [place] [address] Dr. Liudmila Edmondson PROF CHEM 8 (BAS METB)on Anion gap [Moles/Vol] 9.0 mmol/L Normal [facility] Comment on above: Performed By: #### C RP, BMP #### [facility] [address] [place] [address] Dr. Liudmila Edmondson Calcium [Mass/Vol] 8.8 mg/dL Normal 8.5-10.1 [facility] Comment on above: Performed By: #### C RP, BMP #### [facility] [address] [place] [address] Dr. Liudmila Edmondson Chloride [Moles/Vol] 105 mmol/L Normal 98-107 [facility] Comment on above: Performed By: #### C RP, BMP #### [facility] [address] [place] [address] [address] Liudmila Edmondson CO2 [Moles/Vol] 27.8 mmol/L Normal 21.0-32.0 [facility] Comment on above: Performed By: #### C RP, BMP #### [facility] [address] [place] [address] Dr. Liudmila Edmondson Creatinine [Mass/Vol] 0.99 mg/dL Normal 0.70-1.30 [facility] Comment on above: Performed By: #### C RP, BMP #### [facility] [address] [place] [address] Dr. Liudmila Edmondson EGFR-AF LATVIAN >60 Normal >=60 [facility] Comment on above: Performed By: #### C RP, BMP #### [facility] [address] [place] [address] Dr. Liudmila Edmondson EGFR-NON AF LATVIAN >60 Normal >=60 [facility] Comment on above: Performed By: #### C RP, BMP #### [facility] [address] [place] [address] Dr. Liudmila Edmondson Glucose [Mass/Vol] 135 mg/dL Critically high 74-106 [facility] Comment on above: Performed By: #### C RP, BMP #### [facility] [address] [place] [address] Dr. Liudmila Edmondson Potassium [Moles/Vol] 3.8 mmol/L Normal 3.5-5.1 [facility] Comment on above: Performed By: #### C RP, BMP #### [facility] [address] [place] [address] Dr. Liudmila Edmondson Sodium [Moles/Vol] 138 mmol/L Normal 136-145 [facility] Comment on above: Performed By: #### C RP, BMP #### [facility] [address] [place] [address] Dr. Liudmila Edmondson Urea nitrogen [Mass/Vol] 23.0 mg/dL Critically high 7.0-18.0 [facility] Comment on above: Performed By: #### C RP, BMP #### [facility] [address] [place] [address] Dr. Liudmila Edmondson Urea nitrogen/Creatinine [Mass ratio] 23.2 mg/mg Normal [facility] Comment on above: Performed By: #### C RP, BMP #### [facility] [address] [place] [address] [address] Liudmila Edmondson SED RATE [facility] 2021 SED RATE 43 mm/hr Critically high <=15 [facility] Comment on above: Performed By: #### S EDR #### [facility] [address] [address] [address] Liudmila Edmondson Encounters Encounter Date Encounter Type Care Provider Facility Start: 08-14-2023 End: 08-15-2023 ambulatory [facility] Start: 08-13-2023 End: 08-15-2023 Emergency department patient visit [facility] Start: 08-13-2023 End: 08-15-2023 Emergency department patient visit [facility] Start: 08-13-2023 End: 08-14-2023 ambulatory NO PCP NO PCP [facility] Start: 08-10-2023 ambulatory Barak Engel acility:[facility] Start: 08-07-2023 End: 08-08-2023 Emergency department patient visit [facility] Start: 08-07-2023 End: 08-07-2023 Emergency department patient visit [facility] Start: 11-16-2022 End: 11-16-[address] NONE LISTED REQUEST Facility:[facility] Start: 08-25-2022 End: 08-25-[address] NONE LISTED REQUEST Facility:[facility] Start: 07-15-2022 End: 07-15-[address] NONE LISTED REQUEST Facility:[facility] Start: 05-25-2022 End: 05-26-[address] NONE LISTED REQUEST Facility:[facility] Start: 05-03-2022 End: 05-03-[address] DELICIA SPENCER . Facility:[facility] Start: 02-17-2022 End: 07-21-2022 ambulatory CHIKA CARMICHAEL . Facility:[facility] Payers Date Payer Category Payer Unknown [id number] 2023 Self-pay 1975 Unknown [id number] 2.16.84 [id number] 1975 Unknown [id number] 2.16.84 [id number] 1975 Unknown [id number] 2.16.84 [id number] 1975 Unknown [id number] 2.16.84 [id number] 1975 Unknown [id number] 2.16.84 [id number] 1975 Unknown [id number] 2.16.84 [id number] 1975 Unknown [id number] 2.16.84 0.1.228198.3.579.2.1286 1975 Unknown [id number] 2.16.84 [id number] 1959 Medicaid [id number] 1959 Self-pay [id number] Unknown [id number] 2.16.84 [id number] Unknown [id number] 2.16.84 0.1.985163.3.579.2.1286 Unknown [id number] 2.16.84 0.1.498592.3.579.2.1286 Unknown [id number] 2.16.84 [id number] Unknown [id number] 2.16.84 [id number] Summary Purpose Family History No Family History Records FoundNo Family History Records FoundNo Family History Records Found Advance Directives No Advanced Directives Records FoundNo Advanced Directives Records FoundNo Advanced Directives Records Found Additional Source Comments (unrecognized sect ion and content) No Status Records FoundNo Status Records FoundNo Status Records Found INFORMATION SOURCE (unrecogn ized section and content) DATE CREATED AUTHOR 11/19/2022 [facility] DATE CREATED AUTHOR AUTHOR'S SYLVAIN ATION 08/17/2023 [facility] DATE CREATED AUTHOR AUTHOR'S ORGANIZ ATION 10/19/2023 [facility] FOR RECORDS PERTAINING TO PATIENTS WHO ARE [...] BE BASED ON THE PRIMARY CLINICAL RECORDS. [facility]. provides no warranty or guarantee of the accuracy or completeness of information in this document.
== END 2023-11-15 04:58 | disposition home or self-care (01) ==
PROVIDERS: Emergency Provider Internal Medicine
DX: R07.9 Chest pain, unspecified (principal); R55 Syncope and collapse; J44.9 Chronic obstructive pulmonary disease, unspecified; N40.0 Benign prostatic hyperplasia without lower urinary tract symptoms; Z90.49 Acquired absence of other specified parts of digestive tract; F17.210 Nicotine dependence, cigarettes, uncomplicated; Z79.82 Long term (current) use of aspirin; Z79.899 Other long term (current) drug therapy; R07.89 Other chest pain; J20.9 Acute bronchitis, unspecified; J44.0 Chronic obstructive pulmonary disease with (acute) lower respiratory infection; Z59.89 Other problems related to housing and economic circumstances; Z56.0 Unemployment, unspecified
CPT/HCPCS: 36415; 70450; 71045; 71275; 72125; 80048; 84484; 85025; 85378; 93005; 96374; 96375; 99285; J1885; J2919; Q9967

== ENCOUNTER 2023-11-15 17:14 | Emergency (ER) | payer OTHER, MEDICAID, SELFPAY ==
[2023-11-15] VITALS (11 sets, daily range): BP systolic 109–144; BP diastolic 75–85; PULSE 63–79; TEMP 36.8; O2SAT 95–99; BMI 23.1
--- NOTE | 2023-11-15 17:21 | ECG_ITS ---
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
--- NOTE | 2023-11-15 17:21 | XR_ITS ---
The [address] [address] Patient Name: SYLVIA OBANDO MRN: [id number] date: 1975 Sex: M Assigned Patient Location: ED.MAIN Current Patient Location: ER Accession/Order Number: [id number] Exam Date: 11/15/2023 17:45 Report Date: 11/15/2023 18:31 At the request of: NIKIA CAMPOS Procedure: XR chest 1V EXAMINATION: XR chest 1V HISTORY: CP COMPARISON: 11/15/2023 TECHNIQUE: Portable FINDINGS: LUNGS: No significant pulmonary parenchymal abnormalities. VASCULATURE: No increased pulmonary vasculature. PLEURA: No pneumothorax, effusion, or pleural thickening. CARDIAC: No cardiomegaly or cardiac silhouette abnormality. MEDIASTINUM: No visible mass or adenopathy. BONES: No fracture or visible bone lesion. OTHER: Negative. XR/XR chest 1V IMPRESSION: No acute cardiopulmonary process Electronically authenticated by: NONI EUCEDA Date: 11/15/2023 18:31
--- NOTE | 2023-11-15 17:23 | ED.CHESTPAI1 ---
HPI - Chest Pain General Chief Complaint: Chest Pain Stated Complaint: chest pain Time Seen by Provider: 11/15/23 17:18 Source: patient Mode of arrival: walk-in Limitations: no limitations History of Present Illness HPI narrative: 48-year-old male presents for chest pain. He has had it since 2 AM. It started when he was at work and appears to have had a syncopal episode. He was seen here and it appears they recommended admission but he did not want to stay and he was discharged home. He has had this pain in the middle part of the sternum continuously since then. No fever palpitations or cough. He complains of no back pain or shortness of breath. Related Data Home Medications ?Medication ?Instructions ?Recorded ?Confirmed aspirin 81 mg tablet,delayed 81 mg PO BID 11/15/23 11/15/23 release (Adult Low Dose Aspirin) levetiracetam 500 mg tablet 500 mg PO DAILY 11/15/23 11/15/23 (Keppra) Allergies Allergy/AdvReac Type Severity Reaction Status Date / Time iodine Allergy Verified 09/07/23 21:45 Review of Systems ROS Narrative A ten point review of systems is negative except as noted above. 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 (ICD-10) Enlarged prostate ?N40.0 - Benign prostatic hyperplasia without lower urinary tract symptoms (ICD-10) Suicidal ideation ?R45.851 - Suicidal ideations (ICD-10) Contusion of right wrist ?S60.211A - Contusion of right wrist, initial encounter (ICD-10) Surgical History (Updated 06/28/23 @ 05:12 by Ginny Trinh) History of appendectomy ?Z90.49 - Acquired absence of other specified parts of digestive tract (ICD-10) Family History (Updated 06/28/23 @ 05:13 by Ginny Trinh) Mother Family history of CHF (congestive heart failure) Family history of cancer Family history of myocardial infarction Father Family history of COPD (chronic obstructive pulmonary disease) Family history of hypertension Family history of myocardial infarction Social History Within the past year, how often did you have a drink containing alcohol: never Within the past year, how often did you have six or more drinks on one occasion: never Score interpretation: A score less than 4 is consistent with normal alcohol consumption. 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 Known occupational exposures/hazards: No Highest level of school completed/degree received: high school graduate Do you want help with school or training: No Are you now , , , , never or living with a partner: In a typical week, how many times do you talk on the telephone with family, friends, or neighbors: 3 or more times per week How often do you get together with friends or relatives: never How often do you attend scientologist or sikh services: never Do you belong to any clubs or organizations such as scientologist groups unions, [employer] or athletic groups, or school groups: no Total score: 1 Score interpretation: A score of less than or equal to 1 indicates the most socially isolated. Little interest or pleasure in doing things: nearly every day Feeling down, depressed, or hopeless: nearly every day Feel stressed/tense/nervous/anxious/difficulty sleeping: very much Life stressors: loss of job and financial matters Due to disability, difficulty making decisions: No Do you think of yourself as: straight/heterosexual Gender Identity: male Exam Narrative Exam Narrative: Nurses note and vital signs reviewed and patient is not hypoxic. General: The patient appears well and in no apparent distress. Patient is resting comfortably on cart. Skin: Warm, dry, no pallor noted. There is no rash noted. Head: Normocephalic, atraumatic Eye: Normal conjunctiva, no drainage Ears, Nose, Mouth, and Throat: oral mucosa is moist. Nares patent. Cardiovascular: Regular Rate and Rhythm Respiratory: Patient is in no distress, no accessory muscle use, lungs are clear to auscultation, no wheezing, rales or rhonchi Back: non-tender GI: Soft and nontender Musculoskeletal: The patient has no evidence of calf tenderness, no pitting edema, symmetrical pulses noted bilaterally Neurological: A&O, normal speech Psychiatric: Cooperative Constitutional Vital Signs, click to edit/add: Last Vital Signs Temp 98.2 F 04/17/24 17:18 Pulse 79 11/15/23 17:18 Resp 20 11/15/23 17:18 BP 144/85 H 11/15/23 17:18 Pulse Ox 99 11/15/23 17:18 O2 Del Method Room Air 11/15/23 17:18 Course Vital Signs Vital signs: Vital Signs Temperature 98.2 F 11/15/23 17:18 Pulse Rate 79 11/15/23 17:18 Respiratory Rate 20 11/15/23 17:18 Blood Pressure 144/85 H 11/15/23 17:18 Pulse Oximetry 99 11/15/23 17:18 Oxygen Delivery Method Room Air 11/15/23 17:18 Temperature 98.2 F 11/15/23 17:18 Pulse Rate 79 11/15/23 17:18 Respiratory Rate 20 11/15/23 17:18 Blood Pressure 144/85 H 11/15/23 17:18 Pulse Oximetry 99 11/15/23 17:18 Oxygen Delivery Method Room Air 11/15/23 17:18 MDM - Chest Pain MDM Narrative Medical decision making narrative: D-dimer and initial troponin are negative. Repeat troponin is ordered and the patient is signed out to Dr. Corona at change of shift. Differential Diagnosis Differential diagnosis: Likely pneumothorax, atypical chest pain, st elevation myocardial infarction, costochondritis and chest pain Lab Data Attestation: I reviewed the patient's lab results. Labs: Lab Results 11/15/23 11/15/23 Range/Units 17:33 17:34 WBC 5.7 (4.0-11.0) 10^3/uL RBC 5.04 (4.70-6.10) 10^6/uL Hgb 15.4 (14.0-18.0) g/dL Hct 45.9 (42.0-54.0) % MCV 91.1 (80.0-94.0) fL MCH 30.6 (25.9-34.0) pg MCHC 33.6 (29.9-35.2) g/dL RDW 14.0 (11.0-15.0) % Plt Count 394 (150-450) 10^3/uL MPV 9.7 (9.5-13.5) fL Neut % (Auto) 55.9 (43.0-75.0) % Lymph % (Auto) 30.2 (20.5-60.0) % Major % (Auto) 9.3 (1.7-12.0) % Eos % (Auto) 2.3 (0.9-7.0) % Baso % (Auto) 1.9 (0.2-2.0) % Neut # (Auto) 3.2 (1.4-6.5) 10^3/uL Lymph # (Auto) 1.7 (1.2-3.8) 10^3/uL Major # (Auto) 0.5 (0.3-0.8) 10^3/uL Eos # (Auto) 0.1 (0.0-0.7) 10^3/uL Baso # (Auto) 0.1 (0.0-0.1) 10^3/uL Abs Immat Gran (auto) 0.02 (0.00-0.03) 10^3/uL Imm/Tot Granulo (auto) 0.4 (0.0-0.5) % D-Dimer 0.26 (<=0.59) mg/L FEU Sodium 139 (136-145) mmol/L Potassium 4.1 (3.5-5.1) mmol/L Chloride 103 (98-107) mmol/L Carbon Dioxide 27.3 (21.0-32.0) mmol/L Anion Gap 12.8 BUN 14.0 (7.0-18.0) mg/dL Creatinine 1.01 (0.70-1.30) mg/dL Est GFR ( Amer) >60 (>=60) Est GFR (Non-Af Amer) >60 (>=60) BUN/Creatinine Ratio 13.9 Glucose 105 (74-106) mg/dL Calcium 9.4 (8.5-10.1) mg/dL Troponin I High Sens 4.0 (4.0-76.1) pg/mL POC Glucose 104 (74-106) mg/dL Imaging Data Chest x-ray: Radiologist's impression: ITS Impressions Chest X-Ray 11/15/23 17:21 IMPRESSION: No acute cardiopulmonary process Electronically authenticated by: NONI EUCEDA Date: 11/15/2023 18:31 ECG Data Attestation: I personally reviewed and interpreted this ECG as follows: (EKG on my interpretation shows normal sinus rhythm without acute change and a rate of 75.) Discharge Plan Discharge Patient Disposition: Still a Patient
--- OUTSIDE RECORDS SUMMARY | 2023-11-15 17:27 | XMS_ITS | CCD ---
Author Organization [facility] Care Team Providers Care Technology Integration Specialist Name Role Phone REQUEST, DR NONE LISTED [...] Containting Drugs) Drug allergy (disorder) 02-17-2022 [facility] (1 source) Shellfish Drug allergy (disorder) 02-17-2022 [facility] (1 source) Povidone-Iodine; Translations: [POVIDONE-IODINE [...] 08-13-2023 Episodic Other aftercare (1 source) Other rodent exterminator (current) drug therapy; Translations: [OTH RETIREMENT CURRENT DRUG THERAPY] Onset: 08-29-2022 Episodic Other [...] 24 ABSOLUTE BASOPHIL 0.1 X10E9/L Normal 0.0-0.2 [facility] Comment on above: Performed By: #### C JALIL, BMP #### [facility] ([id number]) [address] [place] [address] 72645 ABSOLUTE NEUTROPHIL 4.6 X10E9/L Normal 1.5-6.6 [facility] Comment on above: Performed By: #### C JALIL, BMP #### [facility] ([id number]) [address] [place] [address] 24001 Basophils/100 WBC (Bld) 1.2 % Normal [facility] Comment on above: Performed By: #### C JALIL, BMP #### [facility] ([id number]) [address] [place] [address] 74695 Eosinophils (Bld) [#/Vol] 0.1 10*3/uL Normal 0.0-0.4 [facility] Comment on above: Performed By: #### C JALIL, BMP #### [facility] ([id number]) [address] [place] [address] 38606 Eosinophils/100 WBC (Bld) 1.7 % Normal [facility] Comment on above: Performed By: #### C JALIL, BMP #### [facility] ([id number]) [address] [place] [address] 04042 Erythrocyte distribution width (RBC) [Ratio] 14.4 % Normal 11.5-15.0 [facility] Comment on above: Performed By: #### C JALIL, BMP #### [facility] ([id number]) [address] [place] [address] 70421 Hematocrit (Bld) [Volume fraction] 46.6 % Normal 39-49 [facility] Comment on above: Performed By: #### C JALIL, BMP #### [facility] ([id number]) [address] [place] [address] 22766 Hemoglobin (Bld) [Mass/Vol] 15.9 g/dL Normal 13.0-17.0 [facility] Comment on above: Performed By: #### C JALIL, BMP #### [facility] ([id number]) [address] [place] [address] 84802 Lymphocytes (Bld) [#/Vol] 2.9 10*3/uL Normal 1.0-3.5 [facility] Comment on above: Performed By: #### C JALIL, BMP #### [facility] ([id number]) [address] [place] [address] 08944 Lymphocytes/100 WBC (Bld) 33.3 % Normal [facility] Comment on above: Performed By: #### C JALIL, BMP #### [facility] ([id number]) [address] [place] [address] 18896 MCH (RBC) [Entitic mass] 30.7 pg Normal 27-34 [facility] Comment on above: Performed By: #### C JALIL, BMP #### [facility] ([id number]) [address] [place] [address] [place] [address] MCHC (RBC) [Mass/Vol] 34.0 g/dL Normal 32-36 [facility] Comment on above: Performed By: #### C JALIL, BMP #### [facility] ([id number]) [address] [place] [address] 96660 MCV (RBC) [Entitic vol] 90 fL Normal 80-100 [facility] Comment on above: Performed By: #### C JALIL, BMP #### [facility] ([id number]) [address] [place] [address] 78083 Monocytes (Bld) [#/Vol] 0.8 10*3/uL Normal 0-0.9 [facility] Comment on above: Performed By: #### C JALIL, BMP #### [facility] ([id number]) [address] [place] [address] 83324 Monocytes/100 WBC (Bld) 9.7 % Normal [facility] Comment on above: Performed By: #### C JALIL, BMP #### [facility] ([id number]) [address] [place] [address] 04016 Neutrophils/100 WBC (Bld) 54.1 % Normal [facility] Comment on above: Performed By: #### C JALIL, BMP #### [facility] ([id number]) [address] [place] [address] 58363 Platelet mean volume (Bld) [Entitic vol] 8.5 fL Normal 7-12 [facility] Comment on above: Performed By: #### C BCA, BMP #### [facility] ([id number]) [address] [place] [address] 29908 Platelets (Bld) [#/Vol] 360 10*3/uL Normal 150-450 [facility] Comment on above: Performed By: #### C BCA, BMP #### [facility] ([id number]) [address] [place] [address] 67491 RBC COUNT 5.17 X10E12/L Normal 4.10-5.70 [facility] Comment on above: Performed By: #### C JALIL, BMP #### [facility] ([id number]) [address] [place] [address] 89366 WBC (Bld) [#/Vol] 8.6 10*3/uL Normal 4.0-11.0 [facility] Comment on above: Performed By: #### C BCA, BMP #### [facility] ([id number]) [address] [place] [address] 47612 COMPREHENSIVE METABOLIC PANE [facility] [place] 08-14-2023 Albumin [Mass/Vol] 4.0 g/dL Normal 3.2-5.3 [facility] Comment on above: Performed By: #### C BCA, BMP #### [facility] ([id number]) [address] [place] [address] 82127 ALP [Catalytic activity/Vol] 78 U/L Normal 39-130 [facility] Comment on above: Performed By: #### C BCA, BMP #### [facility] ([id number]) [address] [place] [address] 86992 ALT [Catalytic activity/Vol] 14 U/L Normal 0-40 [facility] Comment on above: Performed By: #### C BCA, BMP #### [facility] ([id number]) [address] [place] [address] 93746 Anion gap [Moles/Vol] 10 mmol/L Normal 5-15 [facility] Comment on above: Performed By: #### C BCA, BMP #### [facility] ([id number]) [address] [place] [address] 78857 AST [Catalytic activity/Vol] 19 U/L Normal 0-41 [facility] Comment on above: Performed By: #### C BCA, BMP #### [facility] ([id number]) [address] [place] [address] 95723 Bilirubin [Mass/Vol] 0.6 mg/dL Normal 0.3-1.2 [facility] Comment on above: Performed By: #### C BCA, BMP #### [facility] ([id number]) [address] [place] [address] 49703 Calcium [Mass/Vol] 9.0 mg/dL Normal 8.5-10.5 [facility] Comment on above: Performed By: #### C BCA, BMP #### [facility] ([id number]) [address] [place] [address] 11144 Chloride [Moles/Vol] 102 mmol/L Normal 98-109 [facility] Comment on above: Performed By: #### C BCA, BMP #### [facility] ([id number]) [address] [place] [address] 32283 CO2 [Moles/Vol] 24 mmol/L Normal 22-32 [facility] Comment on above: Performed By: #### C BCA, BMP #### [facility] ([id number]) [address] [place] [address] 25182 Creatinine [Mass/Vol] 1.12 mg/dL Normal 0.70-1.20 [facility] Comment on above: Result Comment: METH OD TRACEABLE TO IDMS STANDARD Performed By: #### C BCA, BMP #### [facility] ([id number]) [address] [place] [address] 08101 GFR/1.73 sq M.predicted among non-blacks MDRD (S/P/Bld) [Vol rate/Area] 81 mL/min/{1.73_m2} Normal >59 [facility] Comment on above: Result Comment: Reported eGFR is based on the CKD-EPI 2020 equation that does not use a race coefficient. Performed By: #### C BCA, BMP #### [facility] ([id number]) [address] [place] [address] 61160 Glucose [Mass/Vol] 101 mg/dL High 65-99 [facility] Comment on above: Performed By: #### C BCA, BMP #### [facility] ([id number]) [address] [place] [address] 90923 Potassium [Moles/Vol] 4.0 mmol/L Normal 3.5-5.0 [facility] Comment on above: Performed By: #### C BCA, BMP #### [facility] ([id number]) [address] [place] [address] 94185 Protein [Mass/Vol] 7.7 g/dL Normal 6.0-8.0 [facility] Comment on above: Performed By: #### C BCA, BMP #### [facility] ([id number]) [address] [place] [address] 24297 Sodium [Moles/Vol] 136 mmol/L Normal 134-146 [facility] Comment on above: Performed By: #### C BCA, BMP #### [facility] ([id number]) [address] [place] [address] 46402 Urea nitrogen [Mass/Vol] 18 mg/dL Normal 5-23 [facility] Comment on above: Performed By: #### C BCA, BMP #### [facility] ([id number]) [address] [place] [address], [place] [address] XR CHEST 1 VWon 08-14-2023 XR CHEST 1 VW XR CHEST 1 VW Clinical history: Seizure disorder Views: 1 Comparison: 08/13/2023 Findings/Impression: 1. No acute infiltrate. No volume loss nor consolidation. There is no pleural effusion, pneumothorax, nor volume loss. Heart and mediastinal structures are unremarkable. Pulmonary vasculature stable. 2. No significant change Finalized by Ayush Naranjo MD on 08/14/2023 6:22 AM Normal [facility] levETIRAcetam [Mass/Vol]on 0 08-14-2023 LEVETIRACETAM See Below Normal [facility] Comment on above: Result Comment: NOTE TEST [...] developed and its performance characteristics determined by [facility]'s [facility] [place] ([facility]). It has not been cleared or approved by the FDA. -[facility] is regulated under CLIA as qualified to perform high-complexity testing. This test is used for clinical purposes. It should not be regarded as investigational or for research. Test Performed By: [facility] [employer] [address] [place] [address] Political Director: Lamont Craft III, M.D. CLIA #[id number] Performed By: #### C JALIL, BMP #### [facility] ([id number]) [address] [place] [address] 47912 CBC AND AUTO DIFFon 08-13-19 24 ABSOLUTE BASOPHIL 0.1 X10E9/L Normal 0.0-0.2 [facility] Comment on above: Performed By: #### 1 39-9, , CBCA, 44997-7, CMP #### [facility] ([id number]) [address] [place] [address] 15313 ABSOLUTE NEUTROPHIL 4.5 X10E9/L Normal 1.5-6.6 [facility] Comment on above: Performed By: #### 1 39-9, , CBCA, 68990-4, CMP #### [facility] ([id number]) [address] [place] [address] 65442 Basophils/100 WBC (Bld) 1.4 % Normal [facility] Comment on above: Performed By: #### 1 9, , CBCA, 20111-0, CMP #### [facility] ([id number]) [address] [place] [address] 24528 Eosinophils (Bld) [#/Vol] 0.1 10*3/uL Normal 0.0-0.4 [facility] Comment on above: Performed By: #### 1 39-9, , CBCA, 28070-0, CMP #### [facility] ([id number]) [address] [place] [address] 89798 Eosinophils/100 WBC (Bld) 1.1 % Normal [facility] Comment on above: Performed By: #### 1 39-9, , CBCA, 23312-7, CMP #### [facility] ([id number]) [address] [place] [address] 56748 Erythrocyte distribution width (RBC) [Ratio] 14.4 % Normal 11.5-15.0 [facility] Comment on above: Performed By: #### 1 838-9, , CBCA, 20706-5, CMP #### [facility] ([id number]) [address] [place] [address] 84214 Hematocrit (Bld) [Volume fraction] 49.5 % High 39-49 [facility] Comment on above: Performed By: #### 1 838-9, , CBCA, 77178-3, CMP #### [facility] ([id number]) [address] [place] [address] 60295 Hemoglobin (Bld) [Mass/Vol] 17.3 g/dL High 13.0-17.0 [facility] Comment on above: Performed By: #### 1 838-9, , CBCA, 59499-9, CMP #### [facility] ([id number]) [address] [place] [address] 97056 Lymphocytes (Bld) [#/Vol] 2.0 10*3/uL Normal 1.0-3.5 [facility] Comment on above: Performed By: #### 1 9, , CBCA, 88052-7, CMP #### [facility] ([id number]) [address] [place] [address] 82609 Lymphocytes/100 WBC (Bld) 27.2 % Normal [facility] Comment on above: Performed By: #### 1 838-9, , CBCA, 33289-2, CMP #### [facility] ([id number]) [address] [place] [address] 52426 MCH (RBC) [Entitic mass] 31.3 pg Normal 27-34 [facility] Comment on above: Performed By: #### 1 39-9, , CBCA, 81425-7, CMP #### [facility] ([id number]) [address] [place] [address] 04800 MCHC (RBC) [Mass/Vol] 35.0 g/dL Normal 32-36 [facility] Comment on above: Performed By: #### 1 39-9, , CBCA, 85135-9, CMP #### [facility] ([id number]) [address] [place] [address] 61213 MCV (RBC) [Entitic vol] 89 fL Normal 80-100 [facility] Comment on above: Performed By: #### 1 39-9, , CBCA, 25624-5, CMP #### [facility] ([id number]) [address] [place] [address] 09828 Monocytes (Bld) [#/Vol] 0.5 10*3/uL Normal 0-0.9 [facility] Comment on above: Performed By: #### 1 9, , CBCA, 71486-7, CMP #### [facility] ([id number]) [address] [place] [address] 98025 Monocytes/100 WBC (Bld) 7.5 % Normal [facility] Comment on above: Performed By: #### 1 399, , CBCA, 38728-4, CMP #### [facility] ([id number]) [address] [place] [address] 47809 Neutrophils/100 WBC (Bld) 62.8 % Normal [facility] Comment on above: Performed By: #### 1 39-9, , CBCA, 33190-7, CMP #### [facility] ([id number]) [address] [place] [address] 24732 Platelet mean volume (Bld) [Entitic vol] 8.5 fL Normal 7-12 [facility] Comment on above: Performed By: #### 1 9, , CBCA, 07746-4, CMP #### [facility] ([id number]) [address] [place] [address] 87679 Platelets (Bld) [#/Vol] 409 10*3/uL Normal 150-450 [facility] Comment on above: Performed By: #### 1 39-9, , CBCA, 72198-8, CMP #### [facility] ([id number]) [address] [place] [address] 16526 RBC COUNT 5.54 X10E12/L Normal 4.10-5.70 [facility] Comment on above: Performed By: #### 1 838-9, , CBCA, 39344-3, CMP #### [facility] ([id number]) [address] [place] [address] 17533 WBC (Bld) [#/Vol] 7.2 10*3/uL Normal 4.0-11.0 [facility] Comment on above: Performed By: #### 1 39-9, , CBCA, 52173-3, CMP #### [facility] ([id number]) [address] [place] [address] 06962 COMPREHENSIVE METABOLIC PANE [place] 08-13-2023 Albumin [Mass/Vol] 5.4 g/dL High 3.2-5.3 [facility] Comment on above: Performed By: #### 1 39-9, , CBCA, 68131-3, CMP #### [facility] ([id number]) [address] [place] [address] 49315 ALP [Catalytic activity/Vol] 92 U/L Normal 39-130 [facility] Comment on above: Performed By: #### 1 39-9, , CBCA, 36582-4, CMP #### [facility] ([id number]) [address] [place] [address] 96104 ALT [Catalytic activity/Vol] 18 U/L Normal 0-40 [facility] Comment on above: Performed By: #### 1 838-9, , CBCA, 72638-9, CMP #### [facility] ([id number]) [address] [place] [address] 95354 Anion gap [Moles/Vol] 10 mmol/L Normal 5-15 [facility] Comment on above: Performed By: #### 1 39-9, , CBCA, 25514-4, CMP #### [facility] ([id number]) [address] [place] [address] 20330 AST [Catalytic activity/Vol] 21 U/L Normal 0-41 [facility] Comment on above: Performed By: #### 1 39-9, , CBCA, 98570-7, CMP #### [facility] ([id number]) [address] [place] [address] 13752 Bilirubin [Mass/Vol] 0.5 mg/dL Normal 0.3-1.2 [facility] Comment on above: Performed By: #### 1 838-9, , CBCA, 61746-5, CMP #### [facility] ([id number]) [address] [place] [address] 55028 Calcium [Mass/Vol] 9.9 mg/dL Normal 8.5-10.5 [facility] Comment on above: Performed By: #### 1 39-9, , CBCA, 27248-1, CMP #### [facility] ([id number]) [address] [place] [address] 55460 Chloride [Moles/Vol] 101 mmol/L Normal 98-109 [facility] Comment on above: Performed By: #### 1 39-9, , CBCA, 37094-0, CMP #### [facility] ([id number]) [address] [place] [address] 08829 CO2 [Moles/Vol] 25 mmol/L Normal 22-32 [facility] Comment on above: Performed By: #### 1 0839-9, , CBCA, 30652-8, CMP #### [facility] ([id number]) [address] [place] [address] 16659 Creatinine [Mass/Vol] 0.98 mg/dL Normal 0.70-1.20 [facility] Comment on above: Result Comment: METH OD TRACEABLE TO IDMS STANDARD Performed By: #### 1 39-9, , CBCA, 36297-2, CMP #### [facility] ([id number]) [address] [place] [address] 84865 eGFR (CKD-EPI) NON-RACE DEPENDENT >90 Normal >59 [facility] Comment on above: Result Comment: Reported eGFR is based on the CKD-EPI 2020 equation that does not use a race coefficient. Performed By: #### 1 39-9, , CBCA, 55813-1, CMP #### [facility] ([id number]) [address] [place] [address] 45438 Glucose [Mass/Vol] 90 mg/dL Normal 65-99 [facility] Comment on above: Performed By: #### 1 39-9, , CBCA, 30665-4, CMP #### [facility] ([id number]) [address] [place] [address] 15098 Potassium [Moles/Vol] 4.2 mmol/L Normal 3.5-5.0 [facility] Comment on above: Performed By: #### 1 0839-9, 83499-4, CBCA, 45068-8, CMP #### [facility] ([id number]) [address] [place] [address] Protein [Mass/Vol] 9.9 g/dL High 6.0-8.0 [facility] Comment on above: Performed By: #### 1 0839-9, 61294-6, CBCA, 18103-4, CMP #### [facility] ([id number]) [address] [place] [address] Sodium [Moles/Vol] 136 mmol/L Normal 134-146 [facility] Comment on above: Performed By: #### 1 0839-9, 20652-9, CBCA, 76028-1, CMP #### [facility] ([id number]) [address] [place] [address] 77724 Urea nitrogen [Mass/Vol] 19 mg/dL Normal 5-23 [facility] Comment on above: Performed By: #### 1 0839-9, 80648-9, CBCA, 38163-7, CMP #### [facility] ([id number]) [address] [place] [address] BRAIN WO CONT[address] CT BRAIN WO [...] Sherman MD on 08/13/2023 3:51 AM Normal [facility] DRUG SCREEN, URINEon 024 AMPHETAMINE/METHAMP Negative Normal NEG [facility] Comment on above: Result Comment: AMPH /METH screening cut off = 1000 ng/mL Performed By: #### C BCA, BMP #### [facility] ([id number]) [address] [place] [address] BARBITURATES Negative Normal NEG [facility] Comment on above: Result Comment: Lou iturates screening cut off value = 200 ng/mL Performed By: #### C BCA, BMP #### [facility] ([id number]) [address] [place] [address] BENZODIAZEPINES Positive Abnormal NEG [facility] Comment on above: Result Comment: Conf irmation available upon request. Benzodiazepines screening cut off value = 200 ng/mL Performed By: #### C BCA, BMP #### [facility] ([id number]) [address] [place] [address] CANNABINOIDS Positive Abnormal NEG [facility] Comment on above: Result Comment: Conf irmation available upon request. Cannabinoids/THC screening cut off value = 50 ng/mL Performed By: #### C BCA, BMP #### [facility] ([id number]) [address] [place], [place] [address] COCAINE METABOLITE Negative Normal NEG [facility] Comment on above: Result Comment: Coca ine screening cut off value = 300 ng/mL Performed By: #### C BCA, BMP #### [facility] ([id number]) [address] [place] [address] ECSTASY Negative Normal NEG [facility] Comment on above: Result Comment: Ecst asy screening cut off value = 500 ng/mL This report is intended for use in clinical monitoring or management of patients. Performed By: #### C JALIL, BMP #### [facility] ([id number]) [address] [place] [address] 89710 METHADONE Negative Normal NEG [facility] Comment on above: Result Comment: Meth adone screening cut off value = 300 ng/mL. Performed By: #### C JALIL, BMP #### [facility] ([id number]) [address] [place] [address] 89308 OPIATES Negative Normal [facility] Comment on above: Result Comment: Opia andrés screening cut off value = 300 ng/mL NOTE: This test is used for the detection of codeine, hydrocodone (>1000 ng/mL), morphine and hydromorphone (>900 ng/mL) in urine. Performed By: #### C JALIL, BMP #### [facility] ([id number]) [address] [place] [address] 04444 OXYCODONE Negative Normal [facility] Comment on above: Result Comment: Oxyc odone screening cut off value = 300 ng/mL NOTE: This test is used for the detection of oxycodone and oxymorphone in urine. Performed By: #### C JALIL, BMP #### [facility] ([id number]) [address] [place] [address] 13967 PHENCYCLIDINE Negative Normal [facility] Comment on above: Result Comment: Phen cyclidine screening cut off value = 25 ng/mL Performed By: #### C JALIL, BMP #### [facility] ([id number]) [address] [place] [address] 82840 Glucose Glucometer (BldC) [M ass/Vol]on 08-13-2023 Glucose [Mass/Vol] 85 mg/dL Normal 65-99 [facility] Lactate (P juve) [Moles/Vol]o n 08-13-2023 LACTATE W/REFLEX 1.4 mmol/L Normal 0.4-2.0 [facility] Comment on above: Result Comment: Result did not trigger repeat Lactate, re-order if needed. Performed By: #### 1 0839-9, 70219-5, CBCA, 24369-5, CMP #### [facility] ([id number]) [address] [place] [address] 10725 MAGNESIUMon 08-13-2023 Magnesium [Mass/Vol] 2.0 mg/dL Normal 1.8-2.6 [facility] Comment on above: Performed By: #### 1 0839-9, 56611-3, CBCA, 00827-6, CMP #### [facility] ([id number]) [address] [place] [address] 44075 PLATELET COUNT AND MPVon Platelet mean volume (Bld) [Entitic vol] 8.2 fL Normal 7-12 [facility] Comment on above: Performed By: #### C JALIL, BMP #### [facility] ([id number]) [address] [place] [address] 84589 Platelets (Bld) [#/Vol] 322 10*3/uL Normal 150-450 [facility] Comment on above: Performed By: #### C JALIL, BMP #### [facility] ([id number]) [address] [place] [address] Prolactin [Mass/Vol]on 08-13 PROLACTIN 11.4 ng/mL Normal 2.6-13.1 [facility] Comment on above: Performed By: #### C BCA, BMP #### [facility] ([id number]) [address] [place] [address] TROPONIN Ion 08-13-2023 Troponin I.cardiac [Mass/Vol] ng/mL Normal 0.00-0.04 [facility] Comment on above: Performed By: #### 1 0839-9, 49034-8, CBCA, 56550-2, CMP #### [facility] ([id number]) [address] [place] [address] [place] [address] URN MACROSCOPIC NURon 2023 BILIRUBIN JAS Negative Normal NEG [facility] Comment on above: Performed By: #### N UM #### [facility] ([id number]) [address] [place] [address] [place] [address] BLOOD/HGB JAS Negative Normal NEG [facility] Comment on above: Performed By: #### N UM #### [facility] ([id number]) [address] [place] [address] [place] [address] GLUCOSE JAS Negative Normal NEG [facility] Comment on above: Performed By: #### N UM #### [facility] ([id number]) [address] [place] [address] [place] [address] KETONES JAS Negative Normal NEG [facility] Comment on above: Performed By: #### N UM #### [facility] ([id number]) [address] [place] [address] [place] [address] LEUKOCYTE ESTERASE JAS Negative Normal NEG [facility] Comment on above: Performed By: #### N UM #### [facility] ([id number]) [address] [place] [address] [place] [address] NITRITE JAS Negative Normal NEG [facility] Comment on above: Performed By: #### N UM #### [facility] ([id number]) [address] [place] [address] [place] [address] PH JAS 7.5 Normal 5.0-8.5 [facility] Comment on above: Performed By: #### N UM #### [facility] ([id number]) [address] [place] [address] 47403 PROTEIN JAS Negative Normal NEG [facility] Comment on above: Performed By: #### N UM #### [facility] ([id number]) [address] [place] [address] 22809 SPECIFIC GRAVITY JAS 1.015 Normal 1.003-1.035 [facility] Comment on above: Performed By: #### N UM #### [facility] ([id number]) [address] [place] [address] 34042 UROBILINOGEN JAS 0.2 eu/dL Normal <1.1 [facility] Comment on above: Performed By: #### N UM #### [facility] ([id number]) [address] [place] [address] 74262 XR CHEST 1 VWon 08-13-2023 XR CHEST [...] Sherman MD on 08/13/2023 1:55 AM Normal [facility] BASIC METABOLIC PANLon 08-07 Anion gap [Moles/Vol] 7 mmol/L Normal 5-15 [facility] Comment on above: Performed By: #### C JALIL, BMP #### [facility] ([id number]) [address] [place] [address] 34835 Calcium [Mass/Vol] 9.3 mg/dL Normal 8.5-10.5 [facility] Comment on above: Performed By: #### C JALIL, BMP #### [facility] ([id number]) [address] [place] [address] 69248 Chloride [Moles/Vol] 102 mmol/L Normal 98-109 [facility] Comment on above: Performed By: #### C JALIL, BMP #### [facility] ([id number]) [address] [place] [address] 15622 CO2 [Moles/Vol] 25 mmol/L Normal 22-32 [facility] Comment on above: Performed By: #### C BCA, BMP #### [facility] ([id number]) [address] [place] [address] 51400 Creatinine [Mass/Vol] 1.04 mg/dL Normal 0.70-1.20 [facility] Comment on above: Result Comment: METH OD TRACEABLE TO IDMS STANDARD Performed By: #### C JALIL, BMP #### [facility] ([id number]) [address] [place] [address] 16745 GFR/1.73 sq M.predicted among non-blacks MDRD (S/P/Bld) [Vol rate/Area] 89 mL/min/{1.73_m2} Normal >59 [facility] Comment on above: Result Comment: Reported eGFR is based on the CKD-EPI 1 equation that does not use a race coefficient. Performed By: #### C JALIL, BMP #### [facility] ([id number]) [address] [place] [address] 49379 Glucose [Mass/Vol] 98 mg/dL Normal 65-99 [facility] Comment on above: Performed By: #### C JALIL, BMP #### [facility] ([id number]) [address] [place] [address] 12980 Potassium [Moles/Vol] 4.0 mmol/L Normal 3.5-5.0 [facility] Comment on above: Performed By: #### C BCA, BMP #### [facility] ([id number]) [address] [place] [address] 16320 Sodium [Moles/Vol] 134 mmol/L Normal 134-146 [facility] Comment on above: Performed By: #### C BCA, BMP #### [facility] ([id number]) [address] [place] [address] 94955 Urea nitrogen [Mass/Vol] 18 mg/dL Normal 5-23 [facility] Comment on above: Performed By: #### C JALIL, BMP #### [facility] ([id number]) [address] [place] [address] 39840 CBC AND AUTO DIFFon 08-07-19 24 ABSOLUTE BASOPHIL 0.1 X10E9/L Normal 0.0-0.2 [facility] Comment on above: Performed By: #### C JALIL, BMP #### [facility] ([id number]) [address] [place] [address] 64276 ABSOLUTE NEUTROPHIL 7.5 X10E9/L High 1.5-6.6 [facility] Comment on above: Performed By: #### Maegan JIMENES, BMP #### [facility] ([id number]) [address] [place] [address] 41202 Basophils/100 WBC (Bld) 1.1 % Normal [facility] Comment on above: Performed By: #### Maegan JIMENES, BMP #### [facility] ([id number]) [address] [place] [address] 69142 Eosinophils (Bld) [#/Vol] 0.1 10*3/uL Normal 0.0-0.4 [facility] Comment on above: Performed By: #### Maegan JIMENES, BMP #### [facility] ([id number]) [address] [place] [address] 34178 Eosinophils/100 WBC (Bld) 0.6 % Normal [facility] Comment on above: Performed By: #### Maegan JIMENES, BMP #### [facility] ([id number]) [address] [place] [address] 25946 Erythrocyte distribution width (RBC) [Ratio] 14.5 % Normal 11.5-15.0 [facility] Comment on above: Performed By: #### C JALIL, BMP #### [facility] ([id number]) [address] [place] [address] 19701 Hematocrit (Bld) [Volume fraction] 42.1 % Normal 39-49 [facility] Comment on above: Performed By: #### C BCA, BMP #### [facility] ([id number]) [address] [place] [address] 81987 Hemoglobin (Bld) [Mass/Vol] 14.7 g/dL Normal 13.0-17.0 [facility] Comment on above: Performed By: #### C JALIL, BMP #### [facility] ([id number]) [address] [place] [address] 20620 Lymphocytes (Bld) [#/Vol] 1.3 10*3/uL Normal 1.0-3.5 [facility] Comment on above: Performed By: #### C JALIL, BMP #### [facility] ([id number]) [address] [place] [address] 48402 Lymphocytes/100 WBC (Bld) 13.6 % Normal [facility] Comment on above: Performed By: #### C JALIL, BMP #### [facility] ([id number]) [address] [place] [address] 76852 MCH (RBC) [Entitic mass] 31.1 pg Normal 27-34 [facility] Comment on above: Performed By: #### C JALIL, BMP #### [facility] ([id number]) [address] [place] [address] 25219 MCHC (RBC) [Mass/Vol] 34.9 g/dL Normal 32-36 [facility] Comment on above: Performed By: #### C BCA, BMP #### [facility] ([id number]) [address] [place] [address] 05115 MCV (RBC) [Entitic vol] 89 fL Normal 80-100 [facility] Comment on above: Performed By: #### C JALIL, BMP #### [facility] ([id number]) [address] [place] [address] 35618 Monocytes (Bld) [#/Vol] 0.7 10*3/uL Normal 0-0.9 [facility] Comment on above: Performed By: #### C JALIL, BMP #### [facility] ([id number]) [address] [place] [address] 10551 Monocytes/100 WBC (Bld) 6.9 % Normal [facility] Comment on above: Performed By: #### C JALIL, BMP #### [facility] ([id number]) [address] [place] [address] 51708 Neutrophils/100 WBC (Bld) 77.8 % Normal [facility] Comment on above: Performed By: #### C JALIL, BMP #### [facility] ([id number]) [address] [place] [address] 76174 Platelet mean volume (Bld) [Entitic vol] 7.6 fL Normal 7-12 [facility] Comment on above: Performed By: #### C JALIL, BMP #### [facility] ([id number]) [address] [place] [address] 33069 Platelets (Bld) [#/Vol] 369 10*3/uL Normal 150-450 [facility] Comment on above: Performed By: #### C JALIL, BMP #### [facility] ([id number]) [address] [place] [address] 31964 RBC COUNT 4.73 X10E12/L Normal 4.10-5.70 [facility] Comment on above: Performed By: #### C JALIL, BMP #### [facility] ([id number]) [address] [place] [address] 48392 WBC (Bld) [#/Vol] 9.6 10*3/uL Normal 4.0-11.0 [facility] Comment on above: Performed By: #### C JALIL, JUAN #### [facility] ([id number]) [address] [place] [address], [place] [address] CT BRAIN WO CONTon 4 CT BRAIN [...] Smith MD on 08/07/2023 6:27 PM Normal [facility] XR WRIST LT MIN 3 Von 2022 XR WRIST LT MIN 3 V EXAM: XR WRIST LT FL N 3 V HISTORY: Wrist pain COMPARISON: None. TECHNIQUE: 3 views FINDINGS: No osseous lesion, fracture, dislocation or subluxation. Joint spaces are normal. No visualized effusion. No visualized soft tissue edema. IMPRESSION: Normal x-rays Electronically authenticated by: NONI MOISE Date: 2022-11-16 20:44 Normal [facility] CBC AUTO DIFFon 05-26-2022 BASO # 0.1 103/ul Normal 0.0-0.1 [facility] Comment on above: Performed By: #### C BC #### [facility] [address] [place], [place] [address] Dr. Liudmila Edmondson Basophils/100 WBC (Bld) 1.2 % Normal 0.2-2.0 [facility] Comment on above: Performed By: #### C BC #### [facility] [address] [place], [place] [address] Dr. Liudmila Edmondson EO # 0.4 103/ul Normal 0.0-0.7 [facility] Comment on above: Performed By: #### C BC #### [facility] [address] [place] [address] Dr. Liudmila Edmondson Eosinophils/100 WBC (Bld) 4.3 % Normal 0.9-7.0 [facility] Comment on above: Performed By: #### C BC #### [facility] [address] [place] [address] Dr. Liudmila Edmondson Erythrocyte distribution width (RBC) [Ratio] 13.4 % Normal 11.0-15.0 [facility] Comment on above: Performed By: #### C BC #### [facility] [address] [place] [address] Dr. Liudmila Edmondson Hematocrit (Bld) [Volume fraction] 42.4 % Normal 42.0-54.0 [facility] Comment on above: Performed By: #### C BC #### [facility] [address] [place] [address] Dr. Liudmila Edmondson Hemoglobin (Bld) [Mass/Vol] 15.1 g/dL Normal 14.0-18.0 [facility] Comment on above: Performed By: #### C BC #### [facility] [address] [place] [address] Dr. Liudmila Edmondson IG # 0.02 10e3/ul Normal 0.00-0.03 [facility] Comment on above: Performed By: #### C BC #### [facility] [address] [place] [address] Dr. Liudmila Edmondson IG % 0.2 % Normal 0.0-0.5 [facility] Comment on above: Performed By: #### C BC #### [facility] [address] [place] [address] Dr. Liudmila Edmondson LYMPH # 2.4 103/ul Normal 1.2-3.8 [facility] Comment on above: Performed By: #### C BC #### [facility] [address] [place] [address] Dr. Liudmila Edmondson Lymphocytes/100 WBC (Bld) 24.6 % Normal 20.5-60.0 [facility] Comment on above: Performed By: #### C BC #### [facility] [address] [place] [address] Dr. Liudmila Edmondson MANUAL DIFF REQ NO Normal [facility] Comment on above: Performed By: #### C BC #### [facility] [address] [place] [address] Dr. Liudmila Edmondson MCH (RBC) [Entitic mass] 30.7 pg Normal 25.9-34.0 [facility] Comment on above: Performed By: #### C BC #### [facility] [address] [place] [address] Dr. Liudmila Edmondson MCHC (RBC) [Mass/Vol] 35.6 g/dL Critically high 29.9-35.2 [facility] Comment on above: Performed By: #### C BC #### [facility] [address] [place] [address] Dr. Liudmila Edmondson MCV (RBC) [Entitic vol] 86.2 fL Normal 80.0-94.0 [facility] Comment on above: Performed By: #### C BC #### [facility] [address] [place] [address] Dr. Liudmila Edmondson MONO # 0.7 103/ul Normal 0.3-0.8 [facility] Comment on above: Performed By: #### C BC #### [facility] [address] [place] [address] Dr. Liudmila Edmondson Monocytes/100 WBC (Bld) 7.1 % Normal 1.7-12.0 [facility] Comment on above: Performed By: #### C BC #### [facility] [address] [place] [address] Dr. Liudmila Edmondson NEUT # 6.0 103/ul Normal 1.4-6.5 [facility] Comment on above: Performed By: #### C BC #### [facility] [address] [place] [address] Dr. Liudmila Edmondson Neutrophils/100 WBC (Bld) 62.6 % Normal 43.0-75.0 [facility] Comment on above: Performed By: #### C BC #### [facility] [address] [place] [address] Dr. Liudmila Edmondson Platelet mean volume (Bld) [Entitic vol] 9.4 fL Critically low 9.5-13.5 [facility] Comment on above: Performed By: #### C BC #### [facility] [address] [place] [address] Dr. Liudmila Edmondson PLT 328 103/ul Normal 150-450 [facility] Comment on above: Performed By: #### C BC #### [facility] [address] [place] [address] Dr. Liudmila Edmondson RBC 4.92 106/ul Normal 4.70-6.10 [facility] Comment on above: Performed By: #### C BC #### [facility] [address] [place] [address] Dr. Liudmila Edmondson WBC 9.7 103/ul Normal 4.0-11.0 [facility] Comment on above: Performed By: #### C BC #### [facility] [address] [place] [address] Dr. Liudmila Edmondson CRPon 05-26-2022 CRP [Mass/Vol] mg/L Critically high <=1.0 [facility] Comment on above: Performed By: #### C RP, BMP #### [facility] [address] [place] [address] Dr. Liudmila Edmondson PROF CHEM 8 (BAS METB)on Anion gap [Moles/Vol] 9.0 mmol/L Normal [facility] Comment on above: Performed By: #### C RP, BMP #### [facility] [address] [place] [address] Dr. Liudmila Edmondson Calcium [Mass/Vol] 8.8 mg/dL Normal 8.5-10.1 [facility] Comment on above: Performed By: #### C RP, BMP #### [facility] [address] [place] [address] Dr. Liudmila Edmondson Chloride [Moles/Vol] 105 mmol/L Normal 98-107 [facility] Comment on above: Performed By: #### C RP, BMP #### [facility] [address] [place] [address] [address] Liudmila Edmondson CO2 [Moles/Vol] 27.8 mmol/L Normal 21.0-32.0 [facility] Comment on above: Performed By: #### C RP, BMP #### [facility] [address] [place] [address] Dr. Liudmila Edmondson Creatinine [Mass/Vol] 0.99 mg/dL Normal 0.70-1.30 [facility] Comment on above: Performed By: #### C RP, BMP #### [facility] [address] [place] [address] Dr. Liudmila Edmondson EGFR-AF INDONESIAN >60 Normal >=60 [facility] Comment on above: Performed By: #### C RP, BMP #### [facility] [address] [place] [address] Dr. Liudmila Edmondson EGFR-NON AF INDONESIAN >60 Normal >=60 [facility] Comment on above: Performed By: #### C RP, BMP #### [facility] [address] [place] [address] Dr. Liudmila Edmondson Glucose [Mass/Vol] 135 mg/dL Critically high 74-106 [facility] Comment on above: Performed By: #### C RP, BMP #### [facility] [address] [place] [address] Dr. Liudmila Edmondson Potassium [Moles/Vol] 3.8 mmol/L Normal 3.5-5.1 [facility] Comment on above: Performed By: #### C RP, BMP #### [facility] [address] [place] [address] Dr. Liudmila Edmondson Sodium [Moles/Vol] 138 mmol/L Normal 136-145 [facility] Comment on above: Performed By: #### C RP, BMP #### [facility] [address] [place] [address] Dr. Liudmila Edmondson Urea nitrogen [Mass/Vol] 23.0 mg/dL Critically high 7.0-18.0 [facility] Comment on above: Performed By: #### C RP, BMP #### [facility] [address] [place] [address] Dr. Liudmila Edmondson Urea nitrogen/Creatinine [Mass ratio] 23.2 mg/mg Normal [facility] Comment on above: Performed By: #### C RP, BMP #### [facility] [address] [place] [address] [address] Liudmila Edmondson SED RATE [facility] 2021 SED RATE 43 mm/hr Critically high <=15 [facility] Comment on above: Performed By: #### S EDR #### [facility] [address] [place] [address] [address] Liudmila Edmondson Encounters Encounter Date Encounter Type Care Provider Facility Start: 08-14-2023 End: 08-15-2023 ambulatory [facility] Start: 08-13-2023 End: 08-15-2023 Emergency department patient visit [facility] Start: 08-13-2023 End: 08-15-2023 Emergency department patient visit [facility] Start: 08-13-2023 End: 08-14-2023 ambulatory NO PCP NO PCP [facility] Start: 08-10-2023 ambulatory Barak Engel acility:[facility] Start: 08-07-2023 End: 08-08-2023 Emergency department patient visit [facility] Start: 08-07-2023 End: 08-07-2023 Emergency department patient visit [facility] Start: 11-16-2022 End: 11-16-[address] [...] Facility:[facility] Payers Date Payer Category Payer Unknown [id number] 2023 Self-pay 1975 Unknown [id number] 2.16.84 [id number] 1975 Unknown [id number] 2.16.84 [id number] 1975 Unknown [id number] 2.16.84 [id number] 1975 Unknown [id number] 2.16.84 0.1.856629.3.579.2.593 1975 Unknown [id number] 2.16.84 0.1.421065.3.579.2.593 1975 Unknown [id number] 2.16.84 0.1.982611.3.579.2.593 1975 Unknown [id number] 2.16.84 0.1.294939.3.579.2.1286 1975 Unknown [id number] 2.16.84 0.1.229886.3.579.2.1286 1959 Medicaid [id number] 1959 Self-pay [id number] Unknown [id number] 2.16.84 0.1.009242.3.579.2.1286 Unknown [id number] 2.16.84 0.1.385177.3.579.2.1286 Unknown [id number] 2.16.84 0.1.347547.3.579.2.1286 Unknown [id number] 2.16.84 0.1.475156.3.579.2.1286 Unknown [id number] 2.16.84 0.1.402499.3.579.2.1286 Summary Purpose Family History No Family History Records FoundNo Family History Records FoundNo Family History Records Found Advance Directives No Advanced Directives Records FoundNo Advanced Directives Records FoundNo Advanced Directives Records Found Additional Source Comments (unrecognized sect ion and content) No Status Records FoundNo Status Records FoundNo Status Records Found INFORMATION SOURCE (unrecogn ized section and content) DATE CREATED AUTHOR 11/19/2022 [facility] DATE CREATED AUTHOR AUTHOR'S SYLVAIN ATION 08/17/2023 [facility] DATE CREATED AUTHOR AUTHOR'S ORGANIZ ATION 10/19/2023 [...] BE BASED ON THE PRIMARY CLINICAL RECORDS. [employer] [facility]. provides no warranty or guarantee of the accuracy or completeness of information in this document.
[2023-11-15 17:34] LABS: Glucometer 104 mg/dL (74-106)
[2023-11-15 17:41] LABS: Basophils Absolute Auto 0.1 10^3/uL (0.0-0.1); Basophils Percent Auto 1.9 % (0.2-2.0); Eosinophils Absolute Auto 0.1 10^3/uL (0.0-0.7); Eosinophils Percent Auto 2.3 % (0.9-7.0); Hematocrit 45.9 % (42.0-54.0); Hemoglobin 15.4 g/dL (14.0-18.0); Immature Granulocytes Abs Auto 0.02 10^3/uL (0.00-0.03); Immature Granulocytes Pct Auto 0.4 % (0.0-0.5); Lymphocytes Absolute Auto 1.7 10^3/uL (1.2-3.8); Lymphocytes Percent Auto 30.2 % (20.5-60.0); Mean Corpuscular HGB Conc 33.6 g/dL (29.9-35.2); Mean Corpuscular Hemoglobin 30.6 pg (25.9-34.0); Mean Corpuscular Volume 91.1 fL (80.0-94.0); Mean Platelet Volume 9.7 fL (9.5-13.5); Monocytes Absolute Auto 0.5 10^3/uL (0.3-0.8); Monocytes Percent Auto 9.3 % (1.7-12.0); Neutrophils Absolute Auto 3.2 10^3/uL (1.4-6.5); Neutrophils Percent Auto 55.9 % (43.0-75.0); Platelet Count 394 10^3/uL (150-450); Red Blood Count 5.04 10^6/uL (4.70-6.10); White Blood Count 5.7 10^3/uL (4.0-11.0)
[2023-11-15 17:54] LABS: D Dimer 0.26 mg/L FEU (<=0.59)
[2023-11-15 17:58] LABS: Anion Gap 12.8; BUN Creatinine Ratio 13.9; Calcium 9.4 mg/dL (8.5-10.1); Carbon Dioxide 27.3 mmol/L (21.0-32.0); Chloride 103 mmol/L (98-107); Estimated GFR (African America >60 (>=60); Estimated GFR (Non-African Ame >60 (>=60); Glucose 105 mg/dL (74-106); Potassium 4.1 mmol/L (3.5-5.1); Sodium 139 mmol/L (136-145)
--- NOTE | 2023-11-15 19:27 | CT_ITS ---
[address] [address] Patient Name: SYLVIA OBANDO MRN: [id number] date: 1975 Sex: M Assigned Patient Location: ER Current Patient Location: Accession/Order Number: [id number] Exam Date: 11/15/2023 19:50 Report Date: 11/15/2023 20:22 At the request of: JOI REYES Procedure: CT angio chest Contrast-enhanced CTA of the chest dated 11/15/2023. Indication: Chest pain. Comparison: None . Technique: Thin section arterial phase images of the thorax before and after the injection of intravenous nonionic iodinated contrast. Advanced 3D post processing was performed at an independent work station to further evaluate the suspected abnormality of the vasculature. Findings: Vasculature: No thoracic aortic aneurysm or dissection. No significant atherosclerotic changes. Origins of the great vessels from the aortic arch are without significant stenosis. Heart is not enlarged. No pulmonary embolus identified. Mild diffuse mosaic attenuation pattern throughout the lungs bilaterally may reflect areas of air trapping. Left lower lobe bronchial wall thickening. No suspicious pulmonary nodules, areas of airspace disease, pleural effusions, pericardial effusions or enlarged lymph nodes in the thorax. No pneumothorax. Visualized portion of the upper abdomen is unremarkable. CT/CT angio chest IMPRESSION: 1. No thoracic aortic aneurysm or dissection. No pulmonary embolism. 2. Left lower lobe bronchitis. Electronically authenticated by: BUD JULIEN Date: 11/15/2023 20:22
[2023-11-15 19:48] LABS: Troponin I High Sensitivity <4.0 pg/mL (4.0-76.1)
[2023-11-15 21:07] LABS: Troponin I High Sensitivity <4.0 pg/mL (4.0-76.1)
[2023-11-15] MEDS: KETOROLAC TROMETHAMINE 30 MG/ML VIAL IVP (21:16)
[2023-11-15] MEDS: AZITHROMYCIN 250 MG TABLET 500 MG PO (21:17)
[2023-11-15] MEDS: METHYLPREDNISOLONE SOD SUCC PF 125 MG/2 ML VIAL IVP (21:17)
== END 2023-11-15 21:49 | disposition home or self-care (01) ==
PROVIDERS: Emergency Medicine; Emergency Provider Internal Medicine; PCP Internal Medicine
DX: R07.89 Other chest pain (principal); J20.9 Acute bronchitis, unspecified; Z79.82 Long term (current) use of aspirin; Z79.899 Other long term (current) drug therapy; J44.0 Chronic obstructive pulmonary disease with (acute) lower respiratory infection; N40.0 Benign prostatic hyperplasia without lower urinary tract symptoms; Z90.49 Acquired absence of other specified parts of digestive tract; F17.200 Nicotine dependence, unspecified, uncomplicated; Z59.89 Other problems related to housing and economic circumstances; Z56.0 Unemployment, unspecified
CPT/HCPCS: 36415; 71045; 71275; 80048; 84484; 85025; 85378; 93005; 96374; 96375; 99285; J2919; Q9967

== ENCOUNTER 2023-11-16 09:48 | Emergency (ER) | payer OTHER, MEDICAID, SELFPAY ==
[2023-11-16 09:50] VITALS: BP 155/104; PULSE 87; TEMP 36.5; O2SAT 100; BMI 23.1
[2023-11-16 10:16] VITALS: PULSE 78
--- OUTSIDE RECORDS SUMMARY | 2023-11-16 10:17 | XMS_ITS | CCD ---
Author Organization [facility] Care Team Providers Care Can Vacuum Tester Name Role Phone REQUEST, DR NONE LISTED [...] Containting Drugs) Drug allergy (disorder) 02-17-[address] [facility] Repository (1 source) Shellfish Drug allergy (disorder) 02-17-[address] 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; Translations: [OTH LONG-TERM CURRENT DRUG THERAPY] Onset: 08-29-2022 Episodic Other [...] 24 ABSOLUTE BASOPHIL 0.1 X10E9/L Normal 0.0-0.2 [facility] Comment on above: Performed By: #### C JALIL, BMP #### [facility] ([id number]) [address] [place] [address] 94463 ABSOLUTE NEUTROPHIL 4.6 X10E9/L Normal 1.5-6.6 [facility] Comment on above: Performed By: #### C JALIL, BMP #### [facility] ([id number]) [address] [place] [address] 64453 Basophils/100 WBC (Bld) 1.2 % Normal [facility] Comment on above: Performed By: #### C JALIL, BMP #### [facility] ([id number]) [address] [place] [address] 95151 Eosinophils (Bld) [#/Vol] 0.1 10*3/uL Normal 0.0-0.4 [facility] Comment on above: Performed By: #### C JALIL, BMP #### [facility] ([id number]) [address] [place] [address] 46787 Eosinophils/100 WBC (Bld) 1.7 % Normal [facility] Comment on above: Performed By: #### C JALIL, BMP #### [facility] ([id number]) [address] [place] [address] 37138 Erythrocyte distribution width (RBC) [Ratio] 14.4 % Normal 11.5-15.0 [facility] Comment on above: Performed By: #### C JALIL, BMP #### [facility] ([id number]) [address] [place] [address] 45815 Hematocrit (Bld) [Volume fraction] 46.6 % Normal 39-49 [facility] Comment on above: Performed By: #### C JALIL, BMP #### [facility] ([id number]) [address] [place] [address] 39326 Hemoglobin (Bld) [Mass/Vol] 15.9 g/dL Normal 13.0-17.0 [facility] Comment on above: Performed By: #### C JALIL, BMP #### [facility] ([id number]) [address] [place] [address] 60399 Lymphocytes (Bld) [#/Vol] 2.9 10*3/uL Normal 1.0-3.5 [facility] Comment on above: Performed By: #### C JALIL, BMP #### [facility] ([id number]) [address] [place] [address] 36666 Lymphocytes/100 WBC (Bld) 33.3 % Normal [facility] Comment on above: Performed By: #### C JALIL, BMP #### [facility] ([id number]) [address] [place] [address] 36324 MCH (RBC) [Entitic mass] 30.7 pg Normal 27-34 [facility] Comment on above: Performed By: #### C JALIL, BMP #### [facility] ([id number]) [address] [place] [address] [place] [address] MCHC (RBC) [Mass/Vol] 34.0 g/dL Normal 32-36 [facility] Comment on above: Performed By: #### C JALIL, BMP #### [facility] ([id number]) [address] [place] [address] 72809 MCV (RBC) [Entitic vol] 90 fL Normal 80-100 [facility] Comment on above: Performed By: #### C JALIL, BMP #### [facility] ([id number]) [address] [place] [address] 53175 Monocytes (Bld) [#/Vol] 0.8 10*3/uL Normal 0-0.9 [facility] Comment on above: Performed By: #### C JALIL, BMP #### [facility] ([id number]) [address] [place] [address] 52228 Monocytes/100 WBC (Bld) 9.7 % Normal [facility] Comment on above: Performed By: #### C JALIL, BMP #### [facility] ([id number]) [address] [place] [address] 92291 Neutrophils/100 WBC (Bld) 54.1 % Normal [facility] Comment on above: Performed By: #### C JALIL, BMP #### [facility] ([id number]) [address] [place] [address] 07727 Platelet mean volume (Bld) [Entitic vol] 8.5 fL Normal 7-12 [facility] Comment on above: Performed By: #### C BCA, BMP #### [facility] ([id number]) [address] [place] [address] 93145 Platelets (Bld) [#/Vol] 360 10*3/uL Normal 150-450 [facility] Comment on above: Performed By: #### C BCA, BMP #### [facility] ([id number]) [address] [place] [address] 27497 RBC COUNT 5.17 X10E12/L Normal 4.10-5.70 [facility] Comment on above: Performed By: #### C JALIL, BMP #### [facility] ([id number]) [address] [place] [address] 24606 WBC (Bld) [#/Vol] 8.6 10*3/uL Normal 4.0-11.0 [facility] Comment on above: Performed By: #### C BCA, BMP #### [facility] ([id number]) [address] [place] [address] 64129 COMPREHENSIVE METABOLIC PANE [facility] 08-14-2023 Albumin [Mass/Vol] 4.0 g/dL Normal 3.2-5.3 [facility] Comment on above: Performed By: #### C BCA, BMP #### [facility] ([id number]) [address] [place] [address] 94426 ALP [Catalytic activity/Vol] 78 U/L Normal 39-130 [facility] Comment on above: Performed By: #### C BCA, BMP #### [facility] ([id number]) [address] [place] [address] 04572 ALT [Catalytic activity/Vol] 14 U/L Normal 0-40 [facility] Comment on above: Performed By: #### C BCA, BMP #### [facility] ([id number]) [address] [place] [address] 59799 Anion gap [Moles/Vol] 10 mmol/L Normal 5-15 [facility] Comment on above: Performed By: #### C BCA, BMP #### [facility] ([id number]) [address] [place] [address] 40780 AST [Catalytic activity/Vol] 19 U/L Normal 0-41 [facility] Comment on above: Performed By: #### C BCA, BMP #### [facility] ([id number]) [address] [place] [address] 76514 Bilirubin [Mass/Vol] 0.6 mg/dL Normal 0.3-1.2 [facility] Comment on above: Performed By: #### C BCA, BMP #### [facility] ([id number]) [address] [place] [address] 18300 Calcium [Mass/Vol] 9.0 mg/dL Normal 8.5-10.5 [facility] Comment on above: Performed By: #### C BCA, BMP #### [facility] ([id number]) [address] [place] [address] 49319 Chloride [Moles/Vol] 102 mmol/L Normal 98-109 [facility] Comment on above: Performed By: #### C BCA, BMP #### [facility] ([id number]) [address] [place] [address] 81140 CO2 [Moles/Vol] 24 mmol/L Normal 22-32 [facility] Comment on above: Performed By: #### C BCA, BMP #### [facility] ([id number]) [address] [place] [address] 98254 Creatinine [Mass/Vol] 1.12 mg/dL Normal 0.70-1.20 [facility] Comment on above: Result Comment: METH OD TRACEABLE TO IDMS STANDARD Performed By: #### C BCA, BMP #### [facility] ([id number]) [address] [place] [address] 44400 GFR/1.73 sq M.predicted among non-blacks MDRD (S/P/Bld) [Vol rate/Area] 81 mL/min/{1.73_m2} Normal >59 [facility] Comment on above: Result Comment: Reported eGFR is based on the CKD-EPI 2020 equation that does not use a race coefficient. Performed By: #### C BCA, BMP #### [facility] ([id number]) [address] [place] [address] 86664 Glucose [Mass/Vol] 101 mg/dL High 65-99 [facility] Comment on above: Performed By: #### C BCA, BMP #### [facility] ([id number]) [address] [place] [address] 20909 Potassium [Moles/Vol] 4.0 mmol/L Normal 3.5-5.0 [facility] Comment on above: Performed By: #### C BCA, BMP #### [facility] ([id number]) [address] [place] [address] 52852 Protein [Mass/Vol] 7.7 g/dL Normal 6.0-8.0 [facility] Comment on above: Performed By: #### C BCA, BMP #### [facility] ([id number]) [address] [place] [address] 68491 Sodium [Moles/Vol] 136 mmol/L Normal 134-146 [facility] Comment on above: Performed By: #### C BCA, BMP #### [facility] ([id number]) [address] [place] [address] 80751 Urea nitrogen [Mass/Vol] 18 mg/dL Normal 5-23 [facility] Comment on above: Performed By: #### C BCA, BMP #### [facility] ([id number]) [address] [place] [address], [place] [address] XR CHEST 1 VWon 08-14-2023 XR CHEST 1 VW XR CHEST 1 VW Clinical history: Seizure disorder Views: 1 Comparison: 08/13/2023 Findings/Impression: 1. No acute infiltrate. No volume loss nor consolidation. There is no pleural effusion, pneumothorax, nor volume loss. Heart and mediastinal structures are unremarkable. Pulmonary vasculature stable. 2. No significant change Finalized by Ayush Naranjo MD on 08/14/2023 6:22 AM Normal [facility] levETIRAcetam [Mass/Vol]on 0 08-14-2023 LEVETIRACETAM See Below Normal [facility] Comment on above: Result Comment: NOTE TEST [...] developed and its performance characteristics determined by [facility]'s Spencer JAgustin [facility] [place] ([facility]). It has not been cleared or approved by the FDA. -[facility] is regulated under CLIA as qualified to perform high-complexity testing. This test is used for clinical purposes. It should not be regarded as investigational or for research. Test Performed By: [facility] [employer] [address] [place] [address] Patrol Lady: Lamont Craft III, M.D. CLIA #[id number] Performed By: #### C JALIL, BMP #### [facility] ([id number]) [address] [place] [address] 26591 CBC AND AUTO DIFFon 08-13-19 24 ABSOLUTE BASOPHIL 0.1 X10E9/L Normal 0.0-0.2 [facility] Comment on above: Performed By: #### 1 39-9, , CBCA, 38609-8, CMP #### [facility] ([id number]) [address] [place] [address] 50716 ABSOLUTE NEUTROPHIL 4.5 X10E9/L Normal 1.5-6.6 [facility] Comment on above: Performed By: #### 1 39-9, , CBCA, 28886-4, CMP #### [facility] ([id number]) [address] [place] [address] 54974 Basophils/100 WBC (Bld) 1.4 % Normal [facility] Comment on above: Performed By: #### 1 9, , CBCA, 23731-9, CMP #### [facility] ([id number]) [address] [place] [address] 78071 Eosinophils (Bld) [#/Vol] 0.1 10*3/uL Normal 0.0-0.4 [facility] Comment on above: Performed By: #### 1 39-9, , CBCA, 09801-3, CMP #### [facility] ([id number]) [address] [place] [address] 84444 Eosinophils/100 WBC (Bld) 1.1 % Normal [facility] Comment on above: Performed By: #### 1 39-9, , CBCA, 72712-8, CMP #### [facility] ([id number]) [address] [place] [address] 27977 Erythrocyte distribution width (RBC) [Ratio] 14.4 % Normal 11.5-15.0 [facility] Comment on above: Performed By: #### 1 838-9, , CBCA, 48074-8, CMP #### [facility] ([id number]) [address] [place] [address] 54975 Hematocrit (Bld) [Volume fraction] 49.5 % High 39-49 [facility] Comment on above: Performed By: #### 1 838-9, , CBCA, 93576-8, CMP #### [facility] ([id number]) [address] [place] [address] 24046 Hemoglobin (Bld) [Mass/Vol] 17.3 g/dL High 13.0-17.0 [facility] Comment on above: Performed By: #### 1 838-9, , CBCA, 56366-0, CMP #### [facility] ([id number]) [address] [place] [address] 86649 Lymphocytes (Bld) [#/Vol] 2.0 10*3/uL Normal 1.0-3.5 [facility] Comment on above: Performed By: #### 1 9, , CBCA, 22774-3, CMP #### [facility] ([id number]) [address] [place] [address] 61587 Lymphocytes/100 WBC (Bld) 27.2 % Normal [facility] Comment on above: Performed By: #### 1 838-9, , CBCA, 06140-5, CMP #### [facility] ([id number]) [address] [place] [address] 20942 MCH (RBC) [Entitic mass] 31.3 pg Normal 27-34 [facility] Comment on above: Performed By: #### 1 39-9, , CBCA, 22634-7, CMP #### [facility] ([id number]) [address] [place] [address] 91208 MCHC (RBC) [Mass/Vol] 35.0 g/dL Normal 32-36 [facility] Comment on above: Performed By: #### 1 39-9, , CBCA, 18127-4, CMP #### [facility] ([id number]) [address] [place] [address] 82279 MCV (RBC) [Entitic vol] 89 fL Normal 80-100 [facility] Comment on above: Performed By: #### 1 39-9, , CBCA, 39793-2, CMP #### [facility] ([id number]) [address] [place] [address] 42046 Monocytes (Bld) [#/Vol] 0.5 10*3/uL Normal 0-0.9 [facility] Comment on above: Performed By: #### 1 9, , CBCA, 09579-6, CMP #### [facility] ([id number]) [address] [place] [address] 11948 Monocytes/100 WBC (Bld) 7.5 % Normal [facility] Comment on above: Performed By: #### 1 399, , CBCA, 53130-0, CMP #### [facility] ([id number]) [address] [place] [address] 94854 Neutrophils/100 WBC (Bld) 62.8 % Normal [facility] Comment on above: Performed By: #### 1 39-9, , CBCA, 75639-5, CMP #### [facility] ([id number]) [address] [place] [address] 65147 Platelet mean volume (Bld) [Entitic vol] 8.5 fL Normal 7-12 [facility] Comment on above: Performed By: #### 1 9, , CBCA, 56542-7, CMP #### [facility] ([id number]) [address] [place] [address] 11364 Platelets (Bld) [#/Vol] 409 10*3/uL Normal 150-450 [facility] Comment on above: Performed By: #### 1 39-9, , CBCA, 40394-4, CMP #### [facility] ([id number]) [address] [place] [address] 59029 RBC COUNT 5.54 X10E12/L Normal 4.10-5.70 [facility] Comment on above: Performed By: #### 1 838-9, , CBCA, 14050-8, CMP #### [facility] ([id number]) [address] [place] [address] 37824 WBC (Bld) [#/Vol] 7.2 10*3/uL Normal 4.0-11.0 [facility] Comment on above: Performed By: #### 1 39-9, , CBCA, 72989-0, CMP #### [facility] ([id number]) [address] [place] [address] 40742 COMPREHENSIVE METABOLIC PANE [facility] 08-13-2023 Albumin [Mass/Vol] 5.4 g/dL High 3.2-5.3 [facility] Comment on above: Performed By: #### 1 39-9, , CBCA, 95734-2, CMP #### [facility] ([id number]) [address] [place] [address] 80490 ALP [Catalytic activity/Vol] 92 U/L Normal 39-130 [facility] Comment on above: Performed By: #### 1 39-9, , CBCA, 56681-9, CMP #### [facility] ([id number]) [address] [place] [address] 98126 ALT [Catalytic activity/Vol] 18 U/L Normal 0-40 [facility] Comment on above: Performed By: #### 1 838-9, , CBCA, 65687-8, CMP #### [facility] ([id number]) [address] [place] [address] 98331 Anion gap [Moles/Vol] 10 mmol/L Normal 5-15 [facility] Comment on above: Performed By: #### 1 39-9, , CBCA, 64199-2, CMP #### [facility] ([id number]) [address] [place] [address] 57121 AST [Catalytic activity/Vol] 21 U/L Normal 0-41 [facility] Comment on above: Performed By: #### 1 39-9, , CBCA, 77779-3, CMP #### [facility] ([id number]) [address] [place] [address] 74263 Bilirubin [Mass/Vol] 0.5 mg/dL Normal 0.3-1.2 [facility] Comment on above: Performed By: #### 1 838-9, , CBCA, 55927-7, CMP #### [facility] ([id number]) [address] [place] [address] 46703 Calcium [Mass/Vol] 9.9 mg/dL Normal 8.5-10.5 [facility] Comment on above: Performed By: #### 1 39-9, , CBCA, 88163-7, CMP #### [facility] ([id number]) [address] [place] [address] 83166 Chloride [Moles/Vol] 101 mmol/L Normal 98-109 [facility] Comment on above: Performed By: #### 1 39-9, , CBCA, 96535-1, CMP #### [facility] ([id number]) [address] [place] [address] 15215 CO2 [Moles/Vol] 25 mmol/L Normal 22-32 [facility] Comment on above: Performed By: #### 1 0839-9, , CBCA, 59747-6, CMP #### [facility] ([id number]) [address] [place] [address] 94888 Creatinine [Mass/Vol] 0.98 mg/dL Normal 0.70-1.20 [facility] Comment on above: Result Comment: METH OD TRACEABLE TO IDMS STANDARD Performed By: #### 1 39-9, , CBCA, 17696-7, CMP #### [facility] ([id number]) [address] [place] [address] 86275 eGFR (CKD-EPI) NON-RACE DEPENDENT >90 Normal >59 [facility] Comment on above: Result Comment: Reported eGFR is based on the CKD-EPI 2020 equation that does not use a race coefficient. Performed By: #### 1 39-9, , CBCA, 63921-6, CMP #### [facility] ([id number]) [address] [place] [address] 65136 Glucose [Mass/Vol] 90 mg/dL Normal 65-99 [facility] Comment on above: Performed By: #### 1 39-9, , CBCA, 30391-9, CMP #### [facility] ([id number]) [address] [place] [address] 01902 Potassium [Moles/Vol] 4.2 mmol/L Normal 3.5-5.0 [facility] Comment on above: Performed By: #### 1 0839-9, 66657-2, CBCA, 09593-9, CMP #### [facility] ([id number]) [address] [place] [address] Protein [Mass/Vol] 9.9 g/dL High 6.0-8.0 [facility] Comment on above: Performed By: #### 1 0839-9, 09561-8, CBCA, 03129-5, CMP #### [facility] ([id number]) [address] [place] [address] Sodium [Moles/Vol] 136 mmol/L Normal 134-146 [facility] Comment on above: Performed By: #### 1 0839-9, 24233-9, CBCA, 62678-0, CMP #### [facility] ([id number]) [address] [place] [address] 40779 Urea nitrogen [Mass/Vol] 19 mg/dL Normal 5-23 [facility] Comment on above: Performed By: #### 1 0839-9, 30313-6, CBCA, 42212-4, CMP #### [facility] ([id number]) [address] [place] [address] BRAIN WO CONTon CT BRAIN WO [...] Sherman MD on 08/13/2023 3:51 AM Normal [facility] DRUG SCREEN, URINEon 024 AMPHETAMINE/METHAMP Negative Normal NEG [facility] Comment on above: Result Comment: AMPH /METH screening cut off = 1000 ng/mL Performed By: #### C BCA, BMP #### [facility] ([id number]) [address] [place] [address] BARBITURATES Negative Normal NEG [facility] Comment on above: Result Comment: Lou iturates screening cut off value = 200 ng/mL Performed By: #### C BCA, BMP #### [facility] ([id number]) [address] [place] [address] BENZODIAZEPINES Positive Abnormal NEG [facility] Comment on above: Result Comment: Conf irmation available upon request. Benzodiazepines screening cut off value = 200 ng/mL Performed By: #### C BCA, BMP #### [facility] ([id number]) [address] [place] [address] CANNABINOIDS Positive Abnormal NEG [facility] Comment on above: Result Comment: Conf irmation available upon request. Cannabinoids/THC screening cut off value = 50 ng/mL Performed By: #### C BCA, BMP #### [facility] ([id number]) [address] [place], [place] [address] COCAINE METABOLITE Negative Normal NEG [facility] Comment on above: Result Comment: Coca ine screening cut off value = 300 ng/mL Performed By: #### C BCA, BMP #### [facility] ([id number]) [address] [place] [address] ECSTASY Negative Normal NEG [facility] Comment on above: Result Comment: Ecst asy screening cut off value = 500 ng/mL This report is intended for use in clinical monitoring or management of patients. Performed By: #### C JALIL, BMP #### [facility] ([id number]) [address] [place] [address] 42477 METHADONE Negative Normal NEG [facility] Comment on above: Result Comment: Meth adone screening cut off value = 300 ng/mL. Performed By: #### C JALIL, BMP #### [facility] ([id number]) [address] [place] [address] 32233 OPIATES Negative Normal [facility] Comment on above: Result Comment: Opia andrés screening cut off value = 300 ng/mL NOTE: This test is used for the detection of codeine, hydrocodone (>1000 ng/mL), morphine and hydromorphone (>900 ng/mL) in urine. Performed By: #### C JALIL, BMP #### [facility] ([id number]) [address] [place] [address] 75226 OXYCODONE Negative Normal [facility] Comment on above: Result Comment: Oxyc odone screening cut off value = 300 ng/mL NOTE: This test is used for the detection of oxycodone and oxymorphone in urine. Performed By: #### C JLAIL, BMP #### [facility] ([id number]) [address] [place] [address] 49893 PHENCYCLIDINE Negative Normal [facility] Comment on above: Result Comment: Phen cyclidine screening cut off value = 25 ng/mL Performed By: #### C JALIL, BMP #### [facility] ([id number]) [address] [place] [address] 79758 Glucose Glucometer (BldC) [M ass/Vol]on 08-13-2023 Glucose [Mass/Vol] 85 mg/dL Normal 65-99 [facility] Lactate (P juve) [Moles/Vol]o n 08-13-2023 LACTATE W/REFLEX 1.4 mmol/L Normal 0.4-2.[address] [facility] Comment on above: Result Comment: Result did not trigger repeat Lactate, re-order if needed. Performed By: #### 1 0839-9, 73584-6, CBCA, 65294-6, CMP #### [facility] ([id number]) [address] [place] [address] 04033 MAGNESIUMon 08-13-2023 Magnesium [Mass/Vol] 2.0 mg/dL Normal 1.8-2.6 [facility] Comment on above: Performed By: #### 1 0839-9, 53594-0, CBCA, 68738-7, CMP #### [facility] ([id number]) [address] [place] [address] 44076 PLATELET COUNT AND MPVon Platelet mean volume (Bld) [Entitic vol] 8.2 fL Normal 7-12 [facility] Comment on above: Performed By: #### C JALIL, BMP #### [facility] ([id number]) [address] [place] [address] 65000 Platelets (Bld) [#/Vol] 322 10*3/uL Normal 150-450 [facility] Comment on above: Performed By: #### C JALIL, BMP #### [facility] ([id number]) [address] [place] [address] 39938 Prolactin [Mass/Vol]on 08-13 PROLACTIN 11.4 ng/mL Normal 2.6-13.1 [facility] Comment on above: Performed By: #### C BCA, BMP #### [facility] ([id number]) [address] [place] [address] 13769 TROPONIN Ion 08-13-2023 Troponin I.cardiac [Mass/Vol] ng/mL Normal 0.00-0.04 [facility] Comment on above: Performed By: #### 1 0839-9, 43055-2, CBCA, 21994-4, CMP #### [facility] ([id number]) [address] [place] [address] [place] [address] URN MACROSCOPIC NURon 2023 BILIRUBIN JAS Negative Normal NEG [facility] Comment on above: Performed By: #### N UM #### [facility] ([id number]) [address] [place] [address] [place] [address] BLOOD/HGB JAS Negative Normal NEG [facility] Comment on above: Performed By: #### N UM #### [facility] ([id number]) [address] [place] [address] [place] [address] GLUCOSE JAS Negative Normal NEG [facility] Comment on above: Performed By: #### N UM #### [facility] ([id number]) [address] [place] [address] [place] [address] KETONES JAS Negative Normal NEG [facility] Comment on above: Performed By: #### N UM #### [facility] ([id number]) [address] [place] [address] [place] [address] LEUKOCYTE ESTERASE JAS Negative Normal NEG [facility] Comment on above: Performed By: #### N UM #### [facility] ([id number]) [address] [place] [address] [place] [address] NITRITE JAS Negative Normal NEG [facility] Comment on above: Performed By: #### N UM #### [facility] ([id number]) [address] [place] [address] [place] [address] PH JAS 7.5 Normal 5.0-8.5 [facility] Comment on above: Performed By: #### N UM #### [facility] ([id number]) [address] [place], [place] [address] [id number] PROTEIN JAS Negative Normal NEG [facility] Comment on above: Performed By: #### N UM #### [facility] ([id number]) [address] [place] [address] 00406 SPECIFIC GRAVITY JAS 1.015 Normal 1.003-1.035 [facility] Comment on above: Performed By: #### N UM #### [facility] ([id number]) [address] [place] [address] 14174 UROBILINOGEN JAS 0.2 eu/dL Normal <1.[address] [facility] Comment on above: Performed By: #### N UM #### [facility] ([id number]) [address] [place] [address] 16907 XR CHEST 1 VWon 08-13-2023 XR CHEST [...] Sherman MD on 08/13/2023 1:55 AM Normal [facility] BASIC METABOLIC PANLon 08-07 Anion gap [Moles/Vol] 7 mmol/L Normal 5-15 [facility] Comment on above: Performed By: #### C JALIL, BMP #### [facility] ([id number]) [address] [place] [address] 38725 Calcium [Mass/Vol] 9.3 mg/dL Normal 8.5-10.5 [facility] Comment on above: Performed By: #### C JALIL, BMP #### [facility] ([id number]) [address] [place] [address] 42955 Chloride [Moles/Vol] 102 mmol/L Normal 98-109 [facility] Comment on above: Performed By: #### C JALIL, BMP #### [facility] ([id number]) [address] [place] [address] 33650 CO2 [Moles/Vol] 25 mmol/L Normal 22-32 [facility] Comment on above: Performed By: #### C BCA, BMP #### [facility] ([id number]) [address] [place] [address] 37394 Creatinine [Mass/Vol] 1.04 mg/dL Normal 0.70-1.20 [facility] Comment on above: Result Comment: METH OD TRACEABLE TO IDMS STANDARD Performed By: #### C JALIL, BMP #### [facility] ([id number]) [address] [place] [address] 17948 GFR/1.73 sq M.predicted among non-blacks MDRD (S/P/Bld) [Vol rate/Area] 89 mL/min/{1.73_m2} Normal >59 [facility] Comment on above: Result Comment: Reported eGFR is based on the CKD-EPI 1 equation that does not use a race coefficient. Performed By: #### C JALIL, BMP #### [facility] ([id number]) [address] [place] [address] 34677 Glucose [Mass/Vol] 98 mg/dL Normal 65-99 [facility] Comment on above: Performed By: #### C JALIL, BMP #### [facility] ([id number]) [address] [place] [address] 31459 Potassium [Moles/Vol] 4.0 mmol/L Normal 3.5-5.0 [facility] Comment on above: Performed By: #### C BCA, BMP #### [facility] ([id number]) [address] [place] [address] 70427 Sodium [Moles/Vol] 134 mmol/L Normal 134-146 [facility] Comment on above: Performed By: #### C BCA, BMP #### [facility] ([id number]) [address] [place] [address] 32612 Urea nitrogen [Mass/Vol] 18 mg/dL Normal 5-23 [facility] Comment on above: Performed By: #### C JALIL, BMP #### [facility] ([id number]) [address] [place] [address] 28652 CBC AND AUTO DIFFon 08-07-19 24 ABSOLUTE BASOPHIL 0.1 X10E9/L Normal 0.0-0.2 [facility] Comment on above: Performed By: #### C JALIL, BMP #### [facility] ([id number]) [address] [place] [address] 02066 ABSOLUTE NEUTROPHIL 7.5 X10E9/L High 1.5-6.6 [facility] Comment on above: Performed By: #### Maegan JIMENES, BMP #### [facility] ([id number]) [address] [place] [address] 70973 Basophils/100 WBC (Bld) 1.1 % Normal [facility] Comment on above: Performed By: #### Maegan JIMENES, BMP #### [facility] ([id number]) [address] [place] [address] 19080 Eosinophils (Bld) [#/Vol] 0.1 10*3/uL Normal 0.0-0.4 [facility] Comment on above: Performed By: #### Maegan JIMENES, BMP #### [facility] ([id number]) [address] [place] [address] 59188 Eosinophils/100 WBC (Bld) 0.6 % Normal [facility] Comment on above: Performed By: #### Maegan JIMENES, BMP #### [facility] ([id number]) [address] [place] [address] 12709 Erythrocyte distribution width (RBC) [Ratio] 14.5 % Normal 11.5-15.0 [facility] Comment on above: Performed By: #### C JALIL, BMP #### [facility] ([id number]) [address] [place] [address] 77491 Hematocrit (Bld) [Volume fraction] 42.1 % Normal 39-49 [facility] Comment on above: Performed By: #### C BCA, BMP #### [facility] ([id number]) [address] [place] [address] 94393 Hemoglobin (Bld) [Mass/Vol] 14.7 g/dL Normal 13.0-17.0 [facility] Comment on above: Performed By: #### C JALIL, BMP #### [facility] ([id number]) [address] [place] [address] 83805 Lymphocytes (Bld) [#/Vol] 1.3 10*3/uL Normal 1.0-3.5 [facility] Comment on above: Performed By: #### C JALIL, BMP #### [facility] ([id number]) [address] [place] [address] 29005 Lymphocytes/100 WBC (Bld) 13.6 % Normal [facility] Comment on above: Performed By: #### C JALIL, BMP #### [facility] ([id number]) [address] [place] [address] 42571 MCH (RBC) [Entitic mass] 31.1 pg Normal 27-34 [facility] Comment on above: Performed By: #### C JALIL, BMP #### [facility] ([id number]) [address] [place] [address] 98477 MCHC (RBC) [Mass/Vol] 34.9 g/dL Normal 32-36 [facility] Comment on above: Performed By: #### C BCA, BMP #### [facility] ([id number]) [address] [place] [address] 12959 MCV (RBC) [Entitic vol] 89 fL Normal 80-100 [facility] Comment on above: Performed By: #### C JALIL, BMP #### [facility] ([id number]) [address] [place] [address] 95685 Monocytes (Bld) [#/Vol] 0.7 10*3/uL Normal 0-0.9 [facility] Comment on above: Performed By: #### C JALIL, BMP #### [facility] ([id number]) [address] [place] [address] 81194 Monocytes/100 WBC (Bld) 6.9 % Normal [facility] Comment on above: Performed By: #### C JALIL, BMP #### [facility] ([id number]) [address] [place] [address] 87646 Neutrophils/100 WBC (Bld) 77.8 % Normal [facility] Comment on above: Performed By: #### C JALIL, BMP #### [facility] ([id number]) [address] [place] [address] 55059 Platelet mean volume (Bld) [Entitic vol] 7.6 fL Normal 7-12 [facility] Comment on above: Performed By: #### C JALIL, BMP #### [facility] ([id number]) [address] [place] [address] 31787 Platelets (Bld) [#/Vol] 369 10*3/uL Normal 150-450 [facility] Comment on above: Performed By: #### C JALIL, BMP #### [facility] ([id number]) [address] [place] [address] 84306 RBC COUNT 4.73 X10E12/L Normal 4.10-5.70 [facility] Comment on above: Performed By: #### C JALIL, BMP #### [facility] ([id number]) [address] [place] [address] 55339 WBC (Bld) [#/Vol] 9.6 10*3/uL Normal 4.0-11.0 [facility] Comment on above: Performed By: #### C JALIL, JUAN #### [facility] ([id number]) [address] [place] [address], [place] [address] CT BRAIN WO CONTon 4 CT BRAIN [...] Smith MD on 08/07/2023 6:27 PM Normal [facility] XR WRIST LT MIN 3 Von 2022 XR WRIST LT MIN 3 V EXAM: XR WRIST LT PA N 3 V HISTORY: Wrist pain COMPARISON: None. TECHNIQUE: 3 views FINDINGS: No osseous lesion, fracture, dislocation or subluxation. Joint spaces are normal. No visualized effusion. No visualized soft tissue edema. IMPRESSION: Normal x-rays Electronically authenticated by: NONI MOISE Date: 2022-11-16 20:44 Normal [facility] CBC AUTO DIFFon 05-26-2022 BASO # 0.1 103/ul Normal 0.0-0.1 [facility] Comment on above: Performed By: #### C BC #### [facility] [address] [place], [place] [address] Dr. Liudmila Edmondson Basophils/100 WBC (Bld) 1.2 % Normal 0.2-2.0 [facility] Comment on above: Performed By: #### C BC #### [facility] [address] [place], [place] [address] Dr. Liudmila Edmondson EO # 0.4 103/ul Normal 0.0-0.7 [facility] Comment on above: Performed By: #### C BC #### [facility] [address] [place] [address] Dr. Liudmila Edmondson Eosinophils/100 WBC (Bld) 4.3 % Normal 0.9-7.0 [facility] Comment on above: Performed By: #### C BC #### [facility] [address] [place] [address] Dr. Liudmila Edmondson Erythrocyte distribution width (RBC) [Ratio] 13.4 % Normal 11.0-15.[address] [facility] Comment on above: Performed By: #### C BC #### [facility] [address] [place] [address] Dr. Liudmila Edmondson Hematocrit (Bld) [Volume fraction] 42.4 % Normal 42.0-54.[address] [facility] Comment on above: Performed By: #### C BC #### [facility] [address] [place] [address] Dr. Liudmila Edmondson Hemoglobin (Bld) [Mass/Vol] 15.1 g/dL Normal 14.0-18.0 [facility] Comment on above: Performed By: #### C BC #### [facility] [address] [place] [address] Dr. Liudmila Edmondson IG # 0.02 10e3/ul Normal 0.00-0.03 [facility] Comment on above: Performed By: #### C BC #### [facility] [address] [place] [address] Dr. Liudmila Edmondson IG % 0.2 % Normal 0.0-0.[address] [facility] Comment on above: Performed By: #### C BC #### [facility] [address] [place] [address] Dr. Liudmila Edmondson LYMPH # 2.4 103/ul Normal 1.2-3.[address] [facility] Comment on above: Performed By: #### C BC #### [facility] [address] [place] [address] Dr. Liudmila Edmondson Lymphocytes/100 WBC (Bld) 24.6 % Normal 20.5-60.[address] [facility] Comment on above: Performed By: #### C BC #### [facility] [address] [place] [address] Dr. Liudmila Edmondson MANUAL DIFF REQ NO Normal [facility] Comment on above: Performed By: #### C BC #### [facility] [address] [place] [address] Dr. Liudmila Edmondson MCH (RBC) [Entitic mass] 30.7 pg Normal 25.9-34.0 [facility] Comment on above: Performed By: #### C BC #### [facility] [address] [place] [address] Dr. Liudmila Edmondson MCHC (RBC) [Mass/Vol] 35.6 g/dL Critically high 29.9-35.2 [facility] Comment on above: Performed By: #### C BC #### [facility] [address] [place] [address] Dr. Liudmila Edmondson MCV (RBC) [Entitic vol] 86.2 fL Normal 80.0-94.0 [facility] Comment on above: Performed By: #### C BC #### [facility] [address] [place] [address] Dr. Liudmila Edmondson MONO # 0.7 103/ul Normal 0.3-0.8 [facility] Comment on above: Performed By: #### C BC #### [facility] [address] [place] [address] Dr. Liudmila Edmondson Monocytes/100 WBC (Bld) 7.1 % Normal 1.7-12.0 [facility] Comment on above: Performed By: #### C BC #### [facility] [address] [place] [address] Dr. Liudmila Edmondson NEUT # 6.0 103/ul Normal 1.4-6.[address] [facility] Comment on above: Performed By: #### C BC #### [facility] [address] [place] [address] Dr. Liudmila Edmondson Neutrophils/100 WBC (Bld) 62.6 % Normal 43.0-75.[address] [facility] Comment on above: Performed By: #### C BC #### [facility] [address] [place] [address] Dr. Liudmila Edmondson Platelet mean volume (Bld) [Entitic vol] 9.4 fL Critically low 9.5-13.5 [facility] Comment on above: Performed By: #### C BC #### [facility] [address] [place] [address] Dr. Liudmila Edmondson PLT 328 103/ul Normal 150-450 [facility] Comment on above: Performed By: #### C BC #### [facility] [address] [place] [address] Dr. Liudmila Edmondson RBC 4.92 106/ul Normal 4.70-6.10 [facility] Comment on above: Performed By: #### C BC #### [facility] [address] [place] [address] Dr. Liudmila Edmondson WBC 9.7 103/ul Normal 4.0-11.0 [facility] Comment on above: Performed By: #### C BC #### [facility] [address] [place] [address] Dr. Liudmila Edmondson CRPon 05-26-2022 CRP [Mass/Vol] mg/L Critically high <=1.0 [facility] Comment on above: Performed By: #### C RP, BMP #### [facility] [address] [place] [address] Dr. Liudmila Edmondson PROF CHEM 8 (BAS METB)on Anion gap [Moles/Vol] 9.0 mmol/L Normal [facility] Comment on above: Performed By: #### C RP, BMP #### [facility] [address] [place] [address] Dr. Liudmila Edmondson Calcium [Mass/Vol] 8.8 mg/dL Normal 8.5-10.1 [facility] Comment on above: Performed By: #### C RP, BMP #### [facility] [address] [place] [address] Dr. Liudmila Edmondson Chloride [Moles/Vol] 105 mmol/L Normal 98-107 [facility] Comment on above: Performed By: #### C RP, BMP #### [facility] [address] [place] [address] [address] Liudmila Edmondson CO2 [Moles/Vol] 27.8 mmol/L Normal 21.0-32.0 [facility] Comment on above: Performed By: #### C RP, BMP #### [facility] [address] [place] [address] Dr. Liudmila Edmondson Creatinine [Mass/Vol] 0.99 mg/dL Normal 0.70-1.30 [facility] Comment on above: Performed By: #### C RP, BMP #### [facility] [address] [place] [address] Dr. Liudmila Edmondson EGFR-AF TOGOLESE >60 Normal >=60 [facility] Comment on above: Performed By: #### C RP, BMP #### [facility] [address] [place] [address] Dr. Liudmila Edmondson EGFR-NON AF TOGOLESE >60 Normal >=60 [facility] Comment on above: Performed By: #### C RP, BMP #### [facility] [address] [place] [address] Dr. Liudmila Edmondson Glucose [Mass/Vol] 135 mg/dL Critically high 74-106 [facility] Comment on above: Performed By: #### C RP, BMP #### [facility] [address] [place] [address] Dr. Liudmila Edmondson Potassium [Moles/Vol] 3.8 mmol/L Normal 3.5-5.1 [facility] Comment on above: Performed By: #### C RP, BMP #### [facility] [address] [place] [address] Dr. Liudmila Edmondson Sodium [Moles/Vol] 138 mmol/L Normal 136-145 [facility] Comment on above: Performed By: #### C RP, BMP #### [facility] [address] [place] [address] Dr. Liudmila Edmondson Urea nitrogen [Mass/Vol] 23.0 mg/dL Critically high 7.0-18.0 [facility] Comment on above: Performed By: #### C RP, BMP #### [facility] [address] [place] [address] Dr. Liudmila Edmondson Urea nitrogen/Creatinine [Mass ratio] 23.2 mg/mg Normal [facility] Comment on above: Performed By: #### C RP, BMP #### [facility] [address] [place] [address] [address] Liudmila Edmondson SED RATE [facility] 2021 SED RATE 43 mm/hr Critically high <=15 [facility] Comment on above: Performed By: #### S EDR #### [facility] [address] [place] [address] [address] Liudmila Edmondson Encounters Encounter Date Encounter Type Care Provider Facility Start: 08-14-2023 End: 08-15-2023 ambulatory [facility] Start: 08-13-2023 End: 08-15-2023 Emergency department patient visit [facility] Start: 08-13-2023 End: 08-15-2023 Emergency department patient visit [facility] Start: 08-13-2023 End: 08-14-2023 ambulatory NO PCP NO PCP [facility] Start: 08-10-2023 ambulatory Barak Engel acility:[facility] Start: 08-07-2023 End: 08-08-2023 Emergency department patient visit [facility] Start: 08-07-2023 End: 08-07-2023 Emergency department patient visit [facility] Start: 11-16-2022 End: 11-16-[address] [...] Facility:[facility] Payers Date Payer Category Payer Unknown [id number] 2023 Self-pay 1975 Unknown [id number] 2.16.84 [id number] 1975 Unknown [id number] 2.16.84 [id number] 1975 Unknown [id number] 2.16.84 [id number] 1975 Unknown [id number] 2.16.84 0.1.098807.3.579.2.593 1975 Unknown [id number] 2.16.84 0.1.905746.3.579.2.593 1975 Unknown [id number] 2.16.84 0.1.119614.3.579.2.593 1975 Unknown [id number] 2.16.84 0.1.582827.3.579.2.1286 1975 Unknown [id number] 2.16.84 0.1.595439.3.579.2.1286 1959 Medicaid [id number] 1959 Self-pay [id number] Unknown [id number] 2.16.84 0.1.795055.3.579.2.1286 Unknown [id number] 2.16.84 0.1.096622.3.579.2.1286 Unknown [id number] 2.16.84 0.1.677633.3.579.2.1286 Unknown [id number] 2.16.84 0.1.214523.3.579.2.1286 Unknown [id number] 2.16.84 0.1.366969.3.579.2.1286 Summary Purpose Family History No Family History Records FoundNo Family History Records FoundNo Family History Records Found Advance Directives No Advanced Directives Records FoundNo Advanced Directives Records FoundNo Advanced Directives Records Found Additional Source Comments (unrecognized sect ion and content) No Status Records FoundNo Status Records FoundNo Status Records Found INFORMATION SOURCE (unrecogn ized section and content) DATE CREATED AUTHOR 11/19/2022 [facility] DATE CREATED AUTHOR AUTHOR'S SYLVAIN ATION 08/17/2023 [facility] DATE CREATED AUTHOR AUTHOR'S ORGANIZ ATION 10/19/2023 [facility] FOR RECORDS PERTAINING TO PATIENTS WHO ARE [...] BE BASED ON THE PRIMARY CLINICAL RECORDS. [facility]. provides no warranty or guarantee of the accuracy or completeness of information in this document.
--- NOTE | 2023-11-16 10:29 | ED.GENADUL1 ---
HPI HPI - General Adult General Chief complaint: Chest Pain Stated complaint: CHEST PAIN Time Seen by Provider: 11/16/23 09:55 Source: patient Mode of arrival: walk-in Limitations: no limitations History of Present Illness HPI narrative: Patient developed heartburn symptoms at 5am. He ate pizza last night but felt OK when he went to sleep. He had been evaluated in the ED and received Toradol and taken ibuprofen at home after being diagnosed with bronchitis. He used to take prilosec but has been off that for some time . He complains of a burning sensation in the upper abdomen and mid chest with an acid taste in the mouth and frequent belching/burping. He has not taken anything for this or eaten anything today. Related Data Home Medications ?Medication ?Instructions ?Recorded ?Confirmed aspirin 81 mg tablet,delayed 81 mg PO BID 11/15/23 11/15/23 release (Adult Low Dose Aspirin) levetiracetam 500 mg tablet 500 mg PO DAILY 11/15/23 11/15/23 (Keppra) Previous Rx's ?Medication ?Instructions ?Recorded pantoprazole 40 mg tablet,delayed 40 mg PO DAILY 4 weeks #28 tabs 11/16/23 release (Protonix) Allergies Allergy/AdvReac Type Severity Reaction Status Date / Time iodine Allergy Verified 09/07/23 21:45 Opioid HPI Opioid Management Most Recent Opioid Data: Last Pain Scale 7 11/15/23 17:39 Ur Phencyclidine Scrn Negative (NEGATIVE) 09/08/23 19:41 PFSH PFSH Medical History (Updated 11/16/23 @ 10:35 by Adi Dailey) COPD with exacerbation ?J44.1 - Chronic obstructive pulmonary disease with (acute) exacerbation (ICD-10) Seizures, 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 (ICD-10) Enlarged prostate ?N40.0 - Benign prostatic hyperplasia without lower urinary tract symptoms (ICD-10) Suicidal ideation ?R45.851 - Suicidal ideations (ICD-10) Contusion of right wrist ?S60.211A - Contusion of right wrist, initial encounter (ICD-10) Surgical History (Updated 06/28/23 @ 05:12 by Ginny Trinh) History of appendectomy ?Z90.49 - Acquired absence of other specified parts of digestive tract (ICD-10) Family History (Updated 06/28/23 @ 05:13 by Ginny Trinh) Mother Family history of CHF (congestive heart failure) Family history of cancer Family history of myocardial infarction Father Family history of COPD (chronic obstructive pulmonary disease) Family history of hypertension Family history of myocardial infarction Social History Within the past year, how often did you have a drink containing alcohol: never Within the past year, how often did you have six or more drinks on one occasion: never Score interpretation: A score less than 4 is consistent with normal alcohol consumption. 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 Known occupational exposures/hazards: No Highest level of school completed/degree received: high school graduate Do you want help with school or training: No Are you now , , , , never or living with a partner: In a typical week, how many times do you talk on the telephone with family, friends, or neighbors: 3 or more times per week How often do you get together with friends or relatives: never How often do you attend congregation or yazidi services: never Do you belong to any clubs or organizations such as congregation groups unions, fraternal or athletic groups, or school groups: no Total score: 1 Score interpretation: A score of less than or equal to 1 indicates the most socially isolated. Little interest or pleasure in doing things: nearly every day Feeling down, depressed, or hopeless: nearly every day Feel stressed/tense/nervous/anxious/difficulty sleeping: very much Life stressors: loss of job and financial matters Due to disability, difficulty making decisions: No Do you think of yourself as: straight/heterosexual Gender Identity: male Exam Narrative Exam Narrative: Nurses notes and vital signs reviewed and patient is not hypoxic. afebrile General: Well-appearing and in no apparent distress. Skin: Warm, dry, no pallor noted. Eye: Pupils are equal, round and EOMI. No scleral icterus. Cardiovascular: Regular Rate and Rhythm without murmur, gallop or rub. Respiratory: No accessory muscle use or respiratory distress. Lungs are clear to auscultation, no wheezing, rales or rhonchi Chest Wall: no tenderness GI: Abdomen is soft, non-distended. Normal bowel sounds. No masses appreciated. No tenderness to palpation. No rebound, guarding, or rigidity noted. Neurological: A&O x4. No cranial nerve dysfunction observed. No truncal ataxia. Moves all extremities. Sensation intact. Psychiatric: Cooperative and interactive. Normal mood and affect. Constitutional Vital Signs, click to edit/add: Last Vital Signs Temp 97.7 F 11/16/23 09:50 Pulse 87 11/16/23 09:50 Resp 18 11/16/23 09:50 BP 155/104 H 11/16/23 09:50 Pulse Ox 100 11/16/23 09:50 O2 Del Method Room Air 11/16/23 09:50 Course Vital Signs Vital signs: Vital Signs Temperature 97.7 F 11/16/23 09:50 Pulse Rate 87 11/16/23 09:50 Respiratory Rate 18 11/16/23 09:50 Blood Pressure 155/104 H 11/16/23 09:50 Pulse Oximetry 100 11/16/23 09:50 Oxygen Delivery Method Room Air 11/16/23 09:50 Temperature 97.7 F 11/16/23 09:50 Pulse Rate 87 11/16/23 09:50 Respiratory Rate 18 11/16/23 09:50 Blood Pressure 155/104 H 11/16/23 09:50 Pulse Oximetry 100 11/16/23 09:50 Oxygen Delivery Method Room Air 11/16/23 09:50 Medical Decision Making MDM Narrative Medical decision making narrative: Patient already had extensive evaluation on prior two ED visits including multiple EKGs, serial troponins and CTA chest. Cardiac workup was negative and CTA chest revealed bronchitis. Now his presentation is consistent with gastritis/GERD, likely exacerbated by NSAID use and the pizza he ate last night. Patient given GI cocktail in the ED after I reviewed the EKG and determined there was no ST elevation. Patient discharged home with prescription for protonix. He can see his PCP, Dr López, for follow up. ECG Data Attestation: I personally reviewed and interpreted this ECG as follows: Interpretation: EKG interpretation: Emergency Department physician interpretation. Normal sinus rhythm at 67bpm. Moderate right axis, normal intervals and no ST segment elevation or depression. Discharge Plan Discharge Stand Alone Forms: Portal Instructions Chief Complaint: Chest Pain Clinical Impression: GERD (gastroesophageal reflux disease) Patient Disposition: Home, Self-Care Time of Disposition Decision: 10:35 Prescriptions / Home Meds: New pantoprazole [Protonix] 40 mg tablet,delayed release (DR/EC) 40 mg PO DAILY 28 Days Qty: 28 0RF No Action aspirin [Adult Low Dose Aspirin] 81 mg tablet,delayed release (DR/EC) 81 mg PO BID levetiracetam [Keppra] 500 mg tablet 500 mg PO DAILY Print Language: Mexican Instructions: GERD (Gastroesophageal Reflux Disease) (ED) Referrals: Shaikh López MD [Primary Care Provider] - 1 week
[2023-11-16] MEDS: lidocaine HCL 15 ML, MAG HYDROX/ALUMINUM HYD/SIMETH 30 ML, HYOSCYAMINE SULFATE 0.25 MG PO (10:46)
--- NOTE | 2023-11-16 14:14 | ECG_ITS ---
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
== END 2023-11-16 10:53 | disposition home or self-care (01) ==
PROVIDERS: Emergency Provider Emergency Medicine; PCP Internal Medicine
DX: K21.9 Gastro-esophageal reflux disease without esophagitis (principal); R07.9 Chest pain, unspecified; Z79.82 Long term (current) use of aspirin; Z79.899 Other long term (current) drug therapy; J44.9 Chronic obstructive pulmonary disease, unspecified; N40.0 Benign prostatic hyperplasia without lower urinary tract symptoms; Z90.49 Acquired absence of other specified parts of digestive tract; F17.200 Nicotine dependence, unspecified, uncomplicated; Z59.89 Other problems related to housing and economic circumstances; Z56.0 Unemployment, unspecified
CPT/HCPCS: 93005; 99283